=== PATIENT | male | born 1940 | race Caucasian/White ===

== ENCOUNTER 2019-01-01 19:51 | Emergency (ER) | payer MEDICARE, OTHER, SELFPAY ==
[2019-01-01 19:55] VITALS: BP 126/70; PULSE 91; RESP 18; TEMP 36.3; O2SAT 96; BMI 23.5
--- NOTE | 2019-01-01 20:04 | DI.RAD.S_ITS ---
PROCEDURE: XR RIBS RT MIN 3V W CXR 1V INDICATIONS: Rib pain after fall. TECHNIQUE: 2 views of the right ribs were acquired, along with a single view chest. COMPARISON: None. FINDINGS: Surgical changes and devices: None. Bones and chest wall: Nondisplaced acute lateral right 10th rib fracture. No other fractures or dislocations. Degenerative changes of the right acromioclavicular and glenohumeral joints. No suspicious bony lesions. Overlying soft tissues appear unremarkable. Lungs and pleura: No pleural effusions or pneumothorax. Lungs appear clear. Mediastinum: Mediastinal contours appear normal. Heart size is normal. IMPRESSION: 1. Nondisplaced, acute right lateral 10th rib fracture. 2. No acute cardiopulmonary disease. Dictated by: Will Zamora M.D. on 01/01/2019 at 20:32 Approved by: Will Zamora M.D. on 01/01/2019 at 20:35
--- NOTE | 2019-01-01 20:48 | ED.BACK ---
HPI - Back Pain/Injury General Chief Complaint: Back Pain/Injury Stated Complaint: Right side rib pain, fall in garden on block Time Seen by Provider: 01/01/19 20:48 Source: patient Mode of arrival: ambulatory Limitations: no limitations History of Present Illness HPI Narrative: Patient is a 78-year-old male. Has Parkinson's disease. Was in a crouched position working in his garden when he lost his balance and fell over and hit his right side on an object on the ground. Has had pain worsening since then. No problems breathing. No other injuries were reported from the event. Has not tried anything for that prior to arrival Related Data Previous Rx's Medication Instructions Recorded hydrocodone-acetaminophen [Jbphh] 1 tab PO Q4-6H PRN #7 tab 01/01/19 Review of Systems Constitutional Denies fever(s) and Denies headache(s) ENT Ears, Nose, Mouth, and Throat: Denies vertigo and Denies headache(s) Cardiovascular Reports chest pain (Right-sided chest wall) and Denies dyspnea Respiratory Denies cough and Denies dyspnea Gastrointestinal Gastrointestinal: Denies nausea and Denies vomiting Musculoskeletal Denies myalgias and Denies arthralgias Integumentary/Breasts Denies rash Neurologic Denies vertigo and Denies headache(s) Comments: Baseline neurologic status Hematologic/Lymphatic Denies easy bleeding and Denies easy bruising [facility] Medical History Parkinsons disease (Acute) Social History lives independently: Yes Social History lives independently: Yes Exam Initial Vital Signs Initial Vital Signs: Vital Signs Temperature 97.3 F L 01/01/19 19:55 Pulse Rate 91 H 01/01/19 19:55 Respiratory Rate 18 01/01/19 19:55 Blood Pressure 126/70 01/01/19 19:55 Pulse Oximetry 96 01/01/19 19:55 Const General: cooperative, comfortable, well developed, well groomed and No acute distress Orientation: alert and awake Chest Chest: No crepitus and tenderness (Right lower anterior /lateral chest chest) Resp Effort & Inspection: normal respiratory effort Cardio Rate: regular rate Rhythm: regular rhythm Skin Lesions: no lesions Rashes: no rashes Extrem General: capillary refill normal and No edema Psych Appearance: grossly normal and well kempt Course Orders Ordered: ED Orders 01/01/19 20:04 XR ribs RT min 3V w CXR1V Stat Discontinued Medications Hydrocodone Bitart/Acetaminophen (Vicodin Prepack) 1 bottle MISC SEEINSTR ONE Stop: 01/01/19 21:07 Last Admin: 01/01/19 21:13 Dose: 1 bottle Vital Signs - 8 hr 01/01/19 19:55 01/01/19 21:17 Temperature 97.3 F L Pulse Rate 91 H 73 Respiratory Rate 18 18 Blood Pressure 126/70 137/78 Pulse Oximetry 96 95 MDM - Back Pain/Injury Imaging Data Rib x-ray: Radiologist's impression: [address] [address] XRay Report Signed Patient: Torsten Albrecht LMR#: [id number] : 1940Acct:[id number] Age/Sex: 78 / MDate of Service: 01/01/19 Loc: ED Accession Number: [id number] Procedure: XR ribs RT min 3V w CXR1V Ordering Provider: Leo Zamarripa D.O. PROCEDURE: XR RIBS RT MIN 3V W CXR 1V INDICATIONS: Rib pain after fall. TECHNIQUE: 2 views of the right ribs were acquired, along with a single view chest. COMPARISON: None. FINDINGS: Surgical changes and devices: None. Bones and chest wall: Nondisplaced acute lateral right 10th rib fracture. No other fractures or dislocations. Degenerative changes of the right acromioclavicular and glenohumeral joints. No suspicious bony lesions. Overlying soft tissues appear unremarkable. Lungs and pleura: No pleural effusions or pneumothorax. Lungs appear clear. Mediastinum: Mediastinal contours appear normal. Heart size is normal. IMPRESSION: 1. Nondisplaced, acute right lateral 10th rib fracture. 2. No acute cardiopulmonary disease. Dictated by: Will Zamora M.D. on 01/01/2019 at 20:32 Approved by: Will Zamora M.D. on 01/01/2019 at 20:35 MDM Narrative Medical decision making narrative: Baseline neurologic status per the patient with regard to his Parkinson's disease. He is tender to palpation over his right-sided ribs consistent with what appears to be a rib fracture on the x-rays. He is not in any respiratory distress. There is no underlying lung pathology. Initially declined any need for pain medication. We did discuss the importance of him controlling his pains that he can take big deep breaths to avoid things like pneumonia. He was given return precautions and follow-up instructions. Patient expressed understanding and agreement of plan Discharge Plan Departure Patient Disposition: Home Clinical Impression: Rib fracture Qualifiers: Encounter type: initial encounter Rib fracture type: single rib Fracture type: closed Laterality: right Qualified Code(s): S22.31XA - Fracture of one rib, right side, initial encounter for closed fracture Discharge Date/Time: 01/01/19 21:17 Interventions: ED Discharge Assessment Last Done: 01/01/19 21:17 Instructions: DI for Rib Fracture Activity Restrictions/Additional Instructions: Contact your primary care doctor for a follow-up. Return to the emergency department for any fevers, worsening pain, productive cough or any other concerning symptoms. Prescriptions: New hydrocodone-acetaminophen [Jbphh] 5-325 mg tablet 1 tab PO Q4-6H PRN (Reason: pain) Qty: 7 RF: 0
--- NOTE | 2019-01-01 20:49 | PC.NURSE ---
Pt fell on the edge of the garden on R mid back. Pt denies SOB. c/o increasing pain with movement and from muscle tremors due to the Parkinson's disease and getting in and out of bed. Pt has light redness on R side mid back. Strength on upper extremity no changes.
[2019-01-01] MEDS: HYDROCODONE/ACET 5/325 PREPACK 1 BOTTLE MISC (21:13)
[2019-01-01 21:17] VITALS: BP 137/78; PULSE 73; RESP 18; O2SAT 95
--- NOTE | 2019-01-01 21:18 | PC.NURSE ---
pt denies allergy to hydrocodone/acetaminophen.
== END 2019-01-01 21:17 | disposition home or self-care (01) ==
PROVIDERS: Emergency Provider Emergency Medicine
DX: S22.31XA Fracture of one rib, right side, initial encounter for closed fracture (principal); W19.XXXA Unspecified fall, initial encounter
CPT/HCPCS: 71101; 99282; 99283

== ENCOUNTER 2022-04-22 19:46 | Emergency (ER) | payer OTHER, SELFPAY ==
[2022-04-22 19:57] VITALS: BP 118/57; PULSE 82; RESP 18; TEMP 36.6; O2SAT 97
--- NOTE | 2022-04-22 20:10 | DI.CT.S_ITS ---
PROCEDURE: CT CERVICAL SPINE WO CON INDICATIONS: Trauma TECHNIQUE: Noncontrast 3 mm thick sections acquired from the skull base to the T4 level. Sagittal and coronal reformats were then constructed. For radiation dose reduction, the following was used: automated exposure control, adjustment of mA and/or kV according to patient size. COMPARISON: None. FINDINGS: Image quality: Excellent. Bones: No fractures or subluxation. There is multilevel degenerative disc disease, facet joint arthropathy, and uncovertebral joint arthropathy. Visualized superior ribs are intact. Soft tissues: Prevertebral soft tissues are normal in thickness. No paravertebral hematomas. No apical pneumothoraces. IMPRESSION: 1. No acute fracture or subluxation. Dictated by: Brenden Bruce M.D. on 04/22/2022 at 20:33 Approved by: Brenden Bruce M.D. on 04/22/2022 at 20:34
--- NOTE | 2022-04-22 20:10 | DI.CT.S_ITS ---
PROCEDURE: CT HEAD/BRAIN WO CON INDICATIONS: Trauma TECHNIQUE: Noncontrast 5 mm thick angled axial sections acquired from the foramen magnum to the vertex, with coronal and sagittal reformats. For radiation dose reduction, the following was used: automated exposure control, adjustment of mA and/or kV according to patient size. COMPARISON: None. FINDINGS: Image quality: Excellent. CSF spaces: Basal cisterns are patent. No extra-axial fluid collections. There is mild cerebral volume loss, with resultant ventricular and sulcal prominence. Brain: No intracranial hemorrhage, mass, or mass effect. There are subcortical, periventricular and deep white matter hypodensities consistent with mild chronic small vessel ischemic changes. The mccracken-white matter junction appears preserved. There is intracranial internal carotid artery atherosclerosis. Skull and face: Calvarium and visualized facial bones appear intact, without suspicious lesions. Sinuses: Visualized sinuses and mastoids are clear. IMPRESSION: 1. No acute intracranial abnormality. 2. Mild chronic white matter small vessel ischemic changes and cerebral volume loss. Dictated by: Brenden Bruce M.D. on 04/22/2022 at 20:32 Approved by: Brenden Bruce M.D. on 04/22/2022 at 20:32
--- NOTE | 2022-04-22 20:10 | DI.CT.S_ITS ---
P cyst ROCEDURE: CT PEL WO CON INDICATIONS: Fall/trauma/pain left hip TECHNIQUE: Noncontrast 3 mm axial sections acquired through the bony pelvis, with coronal and sagittal reformatting. COMPARISON: None. FINDINGS: Image quality: There is metallic streak artifact from patient's surgical hardware. Bones: No fracture or dislocation. There are postsurgical changes partially visualized within the lower lumbar spine with posterior fixation rods and an intervertebral spacer at L4-5. There is moderate to severe degenerative disc disease at L5-S1. Soft tissues: No hip joint effusion. There is subcutaneous fat stranding and fluid lateral to the left hip consistent a suspected subcutaneous hematoma. The visualized musculature appears grossly preserved. No intraperitoneal free fluid within the visualized pelvis. Visualized bowel loops are normal in caliber. IMPRESSION: 1. No fracture or dislocation. 2. Subcutaneous fat stranding and fluid superficial to the left hip laterally likely representing a subcutaneous hematoma from a soft tissue contusion. Dictated by: Brenden Bruce M.D. on 04/22/2022 at 20:34 Approved by: Brenden Bruce M.D. on 04/22/2022 at 20:37
--- NOTE | 2022-04-22 20:11 | ED.FALL ---
HPI - Fall General Chief Complaint: Trauma Stated Complaint: FALL HIT HEAD LACERATIONS LEFT HIP PAIN Time Seen by Provider: 04/22/22 20:10 Source: patient Mode of arrival: Wheelchair History of Present Illness HPI Narrative: Modified trauma called at 8:09 p.m.. Patient here with son. Patient is on blood thinner for past history of a stroke. Patient states he was in his garage and slipped on a piece of cardboard and fell and hit his head. No loss of consciousness. Complains of injury to the scalp and left hip pain. Denies any neck or spine pain. No back pain. No other complaints. Patient is awake alert oriented x4. Patient at baseline per son. No altered mental status. No vision changes no nausea or vomiting. No headache. Patient does have history of Parkinson's. No residual weakness from TIA. Related Data Previous Rx's Medication Instructions Recorded hydrocodone 5 mg-acetaminophen 325 1 tab PO Q4-6H PRN pain #7 tabs 01/01/19 mg tablet (Balsam) Review of Systems Review of Systems Narrative: GENERAL: Denies chills, fatigue, malaise, fever, sweats. HEENT: Denies sinus pain, ear pain, sore throat RESPIRATORY: Denies dyspnea, cough CARDIOVASCULAR: Denies chest pain, palpitations GASTROINTESTINAL: Denies nausea, vomiting, abdominal pain : Denies dysuria, frequency, hematuria MUSCULOSKELETAL: Positive muscle or bony pain SKIN: Denies rash, skin lesions, positive skin injury NEUROLOGIC: Denies weakness, numbness ROS Unobtainable: All systems reviewed & are unremarkable except as noted in HPI and below Patient History Medical History (Updated 04/22/22 @ 21:47 by Dariel Willson MD) Parkinsons disease Social History lives independently: Yes Smoking Status: Never smoker Smoking Status: Never smoker Substance Use Type: does not use Exam Narrative Exam Narrative: GENERAL: in no distress, not toxic not dyspneic HEAD: Normocephalic. Two small skin avulsions on the left frontal scalp. The largest is 5 mm. Based visualized no foreign body no bone or muscle injury seen. The same findings on a lateral skin avulsion to this with a small flap measuring 3 mm. No crepitus or step-off. EYES: Pupils equal round No scleral icterus. ENT: Mucous membranes moist. NECK: Trachea midline. No midline tenderness or step-off of the cervical thoracic or lumbar spine. CARDIOVASCULAR: Regular rate and rhythm without murmurs RESPIRATORY: Clear to auscultation. Breath sounds equal bilaterally. No wheezes, rales, or rhonchi. GASTROINTESTINAL: Abdomen soft, non-tender EXTREMITIES: No gross deformities. Left leg not shortened or rotated. Able to flex and extend hip without pain/difficulty on the left. Pants removed. There is a large hematoma overlying the left hip. Skin is intact otherwise. BACK: No flank tenderness. NEURO: AOx4. Clear speech no facial droop light touch intact bilateral face hands and face. Strong equal qc lab technician. SKIN: Warm and dry PSYCH: Not anxious, is cooperative Initial Vital Signs Initial Vital Signs: Vital Signs Temperature 98 F 04/22/22 19:57 Pulse Rate 82 04/22/22 19:57 Respiratory Rate 18 04/22/22 19:57 Blood Pressure 118/57 L 04/22/22 19:57 Pulse Oximetry 97 04/22/22 19:57 Oxygen Delivery Method 04/22/22 19:57 Course Course Course Narrative: No new issues during course of stay Orders Ordered: ED Orders 04/22/22 20:10 CT cervical spine wo con Stat CT head/brain wo con Stat CT pelvis wo con Stat Discontinued Medications Diphtheria/Tetanus/Acell Pertussis (Tet,Diph,Pertuss(Acell),Vac/Pf 0.5 Ml Syringe) 0.5 ml IM .ONCE ONE Stop: 04/22/22 20:15 Last Admin: 04/22/22 20:40 Dose: 0.5 ml Documented By: NICHO Reevaluation(s) Reevaluation #1: Reviewed results with patient and son. Return precautions reviewed with him. They understand wound care instructions. Time: 21:45 Vital Signs Vital signs: Vital Signs - 8 hr 04/22/22 19:57 04/22/22 22:01 Temperature 98 F Pulse Rate 82 67 Respiratory Rate 18 20 Blood Pressure 118/57 L 172/87 H Pulse Oximetry 97 95 Oxygen Delivery Method Room Air Room Air MDM - Fall Differential Diagnosis Differential diagnosis: Likely other (Skull fracture intracranial bleed skin injury hip fracture dislocation contusion) Imaging Data CT scan - head: Radiologist's Impression: [address] [address] [address] Scan Report Signed Patient: Torsten Albrecht MR#: [id number] : 1940 Acct:[id number] Age/Sex: 81 / M Date of Service: 04/22/22 Loc: ED Accession Number: [id number] ?? Procedure: CT head/brain wo con Ordering Provider: Dariel Willson MD PROCEDURE:? CT HEAD/BRAIN WO CON ? INDICATIONS:? Trauma ? TECHNIQUE:? Noncontrast 5 mm thick angled axial sections acquired from the foramen magnum to the vertex, with coronal and sagittal reformats.? For radiation dose reduction, the following was used:? automated exposure control, adjustment of mA and/or kV according to patient size.? ? COMPARISON:? None. ? FINDINGS:? Image quality:? Excellent.? ? CSF spaces:? Basal cisterns are patent.? No extra-axial fluid collections.? There is mild cerebral volume loss, with resultant ventricular and sulcal prominence.? ? Brain:? No intracranial hemorrhage, mass, or mass effect.? There are subcortical, periventricular and deep white matter hypodensities consistent with mild chronic small vessel ischemic changes.? The mccracken-white matter junction appears preserved.? There is intracranial internal carotid artery atherosclerosis.? ? Skull and face:? Calvarium and visualized facial bones appear intact, without suspicious lesions.? ? Sinuses:? Visualized sinuses and mastoids are clear.? ? IMPRESSION:? ? 1. No acute intracranial abnormality. ? 2. Mild chronic white matter small vessel ischemic changes and cerebral volume loss. ? ? Dictated by: Brenden Bruce M.D. on 04/22/2022 at 20:32 ? ? Approved by: Brenden Bruce M.D. on 04/22/2022 at 20:32 ? CT - cervical spine: Radiologist's Impression: [address] [address] [address] Scan Report Signed Patient: Torsten Albrecht MR#: [id number] : 1940 Acct:[id number] Age/Sex: 81 / M Date of Service: 04/22/22 Loc: ED Accession Number: [id number] ?? Procedure: CT cervical spine wo con Ordering Provider: Dariel Willson MD PROCEDURE:? CT CERVICAL SPINE WO CON ? INDICATIONS:? Trauma ? TECHNIQUE:? Noncontrast 3 mm thick sections acquired from the skull base to the T4 level.? Sagittal and coronal reformats were then constructed.? For radiation dose reduction, the following was used:? automated exposure control, adjustment of mA and/or kV according to patient size.? ? COMPARISON:? None. ? FINDINGS:? Image quality:? Excellent.? ? Bones:? No fractures or subluxation.? There is multilevel degenerative disc disease, facet joint arthropathy, and uncovertebral joint arthropathy.? Visualized superior ribs are intact.? ? Soft tissues:? Prevertebral soft tissues are normal in thickness.? No paravertebral hematomas.? No apical pneumothoraces.? ? ? IMPRESSION:? ? 1. No acute fracture or subluxation. ? ? ? Dictated by: Brenden Bruce M.D. on 04/22/2022 at 20:33 ? ? Approved by: Brenden Bruce M.D. on 04/22/2022 at 20:34 ? CT pelvis: Radiologist's Impression: [place] [address] CT Scan Report Signed Patient: Torsten Albrecht MR#: [id number] : 1940 Acct:[id number] Age/Sex: 81 / M Date of Service: 04/22/22 Loc: ED Accession Number: [id number] ?? Procedure: CT pelvis wo con Ordering Provider: Dariel Willson MD ROCEDURE:? CT PEL WO CON ? INDICATIONS:? Fall/trauma/pain left hip ? TECHNIQUE:? Noncontrast 3 mm axial sections acquired through the bony pelvis, with coronal and sagittal reformatting.? ? COMPARISON:? None. ? FINDINGS:? Image quality:? There is metallic streak artifact from patient's surgical hardware.? ? Bones:? No fracture or dislocation.? There are postsurgical changes partially visualized within the lower lumbar spine with posterior fixation rods and an intervertebral spacer at L4-5.? There is moderate to severe degenerative disc disease at L5-S1. ? Soft tissues:? No hip joint effusion.? There is subcutaneous fat stranding and fluid lateral to the left hip consistent a suspected subcutaneous hematoma.? The visualized musculature appears grossly preserved.? No intraperitoneal free fluid within the visualized pelvis.? Visualized bowel loops are normal in caliber. ? IMPRESSION:? ? 1. No fracture or dislocation. ? 2. Subcutaneous fat stranding and fluid superficial to the left hip laterally likely representing a subcutaneous hematoma from a soft tissue contusion. ? ? ? Dictated by: Brenden Bruce M.D. on 04/22/2022 at 20:34 ? ? Approved by: Brenden Bruce M.D. on 04/22/2022 at 20:37 ? MDM Narrative Medical decision making narrative: Appropriate for discharge home. Exam and imaging are reassuring. Patient and son agree no stitching or closure required for skin avulsion. Wound care instructions given return precautions reviewed. Patient otherwise has no other complaints. Discharge Plan Departure Patient Disposition: Home Clinical Impression: Avulsion of skin, Contusion of hip Instructions: DI for Hematoma (Bruise), DI for Trauma, DI for Closed Head Injury, Skin Wound Activity Restrictions/Additional Instructions: See family doctor next week for re-evaluation of your scalp wound. Change dressing daily with warm soap and water and apply a thin layer of topical antibiotic. May shower and get scalp wet. Be sure to air dry/pat softly to dry. Return if worse if any questions or concerns or if any redness to the wound or drainage from the wound. Do not take your blood thinner tomorrow or the following day. Use cool pack to the left hip as swelling will occur. It may cause discoloration and tracking downward towards her feet. May use Tylenol for pain. Prescriptions: No Action hydrocodone-acetaminophen [Balsam] 5-325 mg tablet 1 tab PO Q4-6H PRN (Reason: pain) Qty: 7 0RF Visit Report Forms: Patient Portal/API
[2022-04-22] MEDS: TET,DIPH,PERTUSS(ACELL),VAC/PF 0.5 ML SYRINGE IM (20:40)
[2022-04-22 22:01] VITALS: BP 172/87; PULSE 67; RESP 20; O2SAT 95
== END 2022-04-22 22:04 | disposition home or self-care (01) ==
PROVIDERS: Emergency Provider Emergency Medicine
DX: S70.02XA Contusion of left hip, initial encounter (principal); S09.90XA Unspecified injury of head, initial encounter; Z79.01 Long term (current) use of anticoagulants; Z23 Encounter for immunization
CPT/HCPCS: 70450; 72125; 72192; 90471; 99284; 90715

== ENCOUNTER 2022-06-05 01:32 | Emergency (ER) | payer OTHER, SELFPAY ==
[2022-06-05 01:42] VITALS: BP 91/53; PULSE 65; RESP 20; TEMP 36.4; O2SAT 95; BMI 22.8
--- NOTE | 2022-06-05 01:49 | DI.RAD.S_ITS ---
PROCEDURE: XR CHEST 1V INDICATIONS: chest pain TECHNIQUE: One view of the chest was acquired. COMPARISON: None. FINDINGS: Surgical changes and devices: None. Lungs and pleura: Lungs are clear. No pleural effusions or pneumothorax. Interstitial prominence is slightly increased compared to the prior study and is likely chronic. Mediastinum: Mediastinal contours appear normal. Heart size is normal. Bones and chest wall: No suspicious bony lesions. Overlying soft tissues appear unremarkable. IMPRESSION: Slight increase in interstitial markings with mild peribronchial cuffing. This may be secondary to chronic fibrotic changes versus underlying reactive airway disease. Comment: Final report is concordant with preliminary interpretation by [facility] Dictated by: José Manuel Rasmussen M.D. on 06/05/2022 at 8:08 Approved by: José Manuel Rasmussen M.D. on 06/05/2022 at 8:09
[2022-06-05 02:08] LABS: Add Manual Diff / Slide Review NO; Basophils Absolute Auto 0 /uL (0-100); Basophils Percent Auto 0.2 % (0-2); Eosinophils Absolute Auto 0 /uL (0-450); Eosinophils Percent Auto 0.7 % (2-4); Hematocrit 35.1 % (41-53); Hemoglobin 11.8 g/dL (13.5-17.5); Lymphocytes Absolute Auto 600 /uL (1100-4500); Lymphocytes Percent Auto 11.8 % (25-40); Mean Corpuscular HGB Conc 33.6 % (30-36); Mean Corpuscular Hemoglobin 31.6 PG (26-34); Mean Corpuscular Volume 94.2 fL (80-100); Monocytes Absolute Auto 300 /uL (0-900); Monocytes Percent Auto 5.8 % (3-14); Neutrophils Absolute Auto 4300 /uL (1500-7000); Neutrophils Percent Auto 81.5 % (50-75); Platelet Count 140 X10^3/uL (150-400); Red Blood Cell Count 3.73 X10^6/uL (4.5-5.9); Red Cell Distribution Width 13.1 % (11.6-14.8); White Blood Cell Count 5.2 X10^3/uL (4.5-11.0)
[2022-06-05 02:13] LABS: COVID19 -Nasal RAPID Negative (Negative)
[2022-06-05 02:35] LABS: Alanine Aminotransferase 6 IU/L (<50); Albumin 3.3 g/dL (3.5-5.0); Albumin Globulin Ratio 1.4 (1.0-2.8); Alkaline Phosphatase 77 U/L (38-126); Aspartate Aminotransferase 26 IU/L (17-59); BUN Creatinine Ratio 21.1 (6-22); Blood Urea Nitrogen 27 mg/dL (9-20); Calcium 7.7 mg/dL (8.4-10.2); Carbon Dioxide 29 mmol/L (22-32); Chloride 99 mmol/L (98-107); Creatine Kinase 194 U/L (55-170); Estimated Glomerular Filt Rate 56 mL/min (>60); Globulin 2.4 g/dL (1.7-4.1); Glucose 128 mg/dL (80-110); HEMOLYSIS < 15 (0-50); Lipase 31 U/L (23-300); Magnesium 1.9 mg/dL (1.6-2.3); Potassium 4.1 mmol/L (3.4-5.1); Sodium 134 mmol/L (137-145); Total Protein 5.7 g/dL (6.3-8.2)
--- NOTE | 2022-06-05 02:36 | ED_ITS ---
HPI - Syncope General Chief Complaint: Syncope Stated Complaint: GLF hit head Time Seen by Provider: 06/05/22 02:10 Source: patient and EMS Mode of arrival: EMS History of Present Illness HPI narrative: Patient 81-year-old male history of CVA, Parkinson's presenting today after 2 falls. Son states that both started having some gastroenteritis like symptoms patient says that he had 1 episode of diarrhea. He is fell earlier today. He i s told way weak and tired in his legs give out. 1st time he fell there was no injury son got him up and put him to bed. However he did not want getting up and going to the bathroom by himself so this morning he helped him get up and go to the restroom when he fell in the bathroom hitting his head. There was brief loss of consciousness, he does take Plavix. No nausea vomiting. His parkinsonian like movements. He really has no abdominal pain. He previously has had bowel rotation and ischemic got with a colectomy. He is noted to be slightly hypotensive he states that his blood pressure varies quite a bit in 1 day. He says sometimes it is as high as 200 and has previously been as low as 60 but is not uncommon for to be under 100. He denies any other injuries from his fall.. He now is complaining of some chest burning. No prior history of coronary artery disease. Related Data Previous Rx's Medication Instructions Recorded hydrocodone 5 mg-acetaminophen 325 1 tab PO Q4-6H PRN pain #7 tabs 01/01/ mg tablet (Gladys) Allergies Allergy/AdvReac Type Severity Reaction Status Date / Time haloperidol [From Haldol] Allergy Verified 06/05/22 01:48 Review of Systems Review of Systems Narrative: GENERAL: Denies chills, fatigue, malaise, fever, sweats, travel HEENT: Denies sinus pain, ear pain, sore throat, difficulty swallowing, neck pain RESPIRATORY: Denies dyspnea, cough, wheezing, hemoptysis, sputum. CARDIOVASCULAR: Denies chest pain, palpitations, orthopnea, edema GASTROINTESTINAL: Denies nausea, vomiting, abdominal pain, diarrhea, constipation, melena. : Denies dysuria, frequency, incontinence, hematuria, urinary retention, flank pain. MUSCULOSKELETAL: Denies weakness, joint pain, or bony pain SKIN: No rash, no erythema, no pruritus NEUROLOGIC: See HPI PSYCHIATRIC: No concerning psychosocial issues. 12 point review of systems is negative except for those stated above and HPI Patient History Medical History (Updated 06/05/22 @ 05:05 by Claudia Willett DO) CVA (cerebral vascular accident) Parkinsons disease Social History lives independently: Yes Smoking Status: Never smoker Smoking Status: Never smoker Substance Use Type: does not use Exam Initial Vital Signs Initial Vital Signs: Vital Signs Temperature 97.6 F 06/05/22 01:42 Pulse Rate 65 06/05/22 01:42 Respiratory Rate 20 06/05/22 01:42 Blood Pressure 91/53 L 06/05/22 01:42 Pulse Oximetry 95 06/05/22 01:42 Oxygen Delivery Method 06/05/22 01:42 GENERAL: Alert pleasant 81-year-old male with parkinsonian like movement HEENT: Head mild swelling right postauricular area is no laceration no depression,EOMI, pupils reactive, face symmetric, moist mucous membranes CARDIOVASCULAR: Regular rate and rhythm without murmurs, rubs or gallops. RESPIRATORY: Breath sounds equal bilaterally, no wheezes rales or rhonchi. ABDOMEN: Soft, nontender. Normoactive bowel sounds all 4 quadrants. No guarding or rebound. EXTREMITIES: Normal range of motion, no clubbing or edema. Neurovascularly intact NEUROLOGICAL: Alert and oriented x4. Moving all extremities SKIN: Warm, dry, no laceration, no petechiae, no rashes or lesions. Course Orders Ordered: ED Orders 06/05/22 01:48 COVID19 -Nasal RAPID/Pre-Proc Stat Complete Blood Count AUTO DIFF Stat Comprehensive Metabolic Panel Stat Lipase Stat Magnesium Stat Troponin & CK Cardiac Panel Stat 06/05/22 01:49 XR chest 1V Stat EKG-12 Lead Stat 06/05/22 02:41 CT head/brain wo con Stat 06/05/22 04:00 Urinalysis and Microscopic Stat Vital Signs Vital signs: Vital Signs - 8 hr 06/05/22 01:42 06/05/22 03:04 Temperature 97.6 F Pulse Rate 65 66 Respiratory Rate 20 19 Blood Pressure 91/53 L 111/55 L Pulse Oximetry 95 95 Oxygen Delivery Method Room Air Room Air MDM - Syncope Lab Data Result diagrams: 06/05/22 01:48 06/05/22 01:48 Labs: Lab Results 06/05/22 06/05/22 06/05/22 Range/Units 01:48 01:48 01:48 WBC 5.2 (4.5-11.0) X10^3/uL RBC 3.73 L (4.5-5.9) X10^6/uL Hgb 11.8 L (13.5-17.5) g/dL Hct 35.1 L (41-53) % MCV 94.2 (80-100) fL MCH 31.6 (26-34) PG MCHC 33.6 (30-36) % RDW 13.1 (11.6-14.8) % Plt Count 140 L (150-400) X10^3/uL Neut % (Auto) 81.5 H (50-75) % Lymph % (Auto) 11.8 L (25-40) % Millard % (Auto) 5.8 (3-14) % Eos % (Auto) 0.7 L (2-4) % Baso % (Auto) 0.2 (0-2) % Neut # (Auto) 4300 (6413-2625) /uL Lymph # (Auto) 600 L (5697-1686) /uL Millard # (Auto) 300 (0-900) /uL Eos # (Auto) 0 (0-450) /uL Baso # (Auto) 0 (0-100) /uL Sodium 134 L (137-145) mmol/L Potassium 4.1 (3.4-5.1) mmol/L Chloride 99 (98-107) mmol/L Carbon Dioxide 29 (22-32) mmol/L BUN 27 H (9-20) mg/dL Creatinine 1.28 H (0.66-1.25) mg/dL Estimated GFR 56 L (>60) mL/min BUN/Creatinine Ratio 21.1 (6-22) Glucose 128 H (80-110) mg/dL Calcium 7.7 L (8.4-10.2) mg/dL Magnesium 1.9 (1.6-2.3) mg/dL Total Bilirubin 1.0 (0.2-1.3) mg/dL AST 26 (17-59) IU/L ALT 6 (<50) IU/L Alkaline Phosphatase 77 (38-126) U/L Total Creatine Kinase 194 H (55-170) U/L CK-MB (CK-2) 4.02 H (<2.37) ng/mL CK-MB (CK-2) Rel Index 2.1 (1.5-5.0) % Troponin I < 0.012 (0.01-0.034) ng/mL Total Protein 5.7 L (6.3-8.2) g/dL Albumin 3.3 L (3.5-5.0) g/dL Globulin 2.4 (1.7-4.1) g/dL Albumin/Globulin Ratio 1.4 (1.0-2.8) Lipase 31 (23-300) U/L Urine Color Urine Appearance Urine pH (4.5-8.0) Ur Specific [place] (1.000-1.035) Urine Protein (Negative) Urine Glucose (UA) (Negative) g/dL Urine Ketones (NEGATIVE) Urine Occult Blood (Negative) Urine Nitrate (Negative) Urine Bilirubin (NEGATIVE) Urine Urobilinogen (0.2) E.U./dL Ur Leukocyte Esterase (NEGATIVE) Urine RBC (0-5/HPF) Urine WBC (0-5/HPF) Ur Squamous Epith Cells (0-5/HPF) Amorphous Sediment Urine Bacteria (None) Hyaline Casts (None) Urine Mucus (Negative) Ur Culture Indicated? SARS-CoV-2 (PCR) Negative (Negative) 06/05/22 Range/Units 04:00 WBC (4.5-11.0) X10^3/uL RBC (4.5-5.9) X10^6/uL Hgb (13.5-17.5) g/dL Hct (41-53) % MCV (80-100) fL MCH (26-34) PG MCHC (30-36) % RDW (11.6-14.8) % Plt Count (150-400) X10^3/uL Neut % (Auto) (50-75) % Lymph % (Auto) (25-40) % Millard % (Auto) (3-14) % Eos % (Auto) (2-4) % Baso % (Auto) (0-2) % Neut # (Auto) (2331-3344) /uL Lymph # (Auto) (0811-9892) /uL Millard # (Auto) (0-900) /uL Eos # (Auto) (0-450) /uL Baso # (Auto) (0-100) /uL Sodium (137-145) mmol/L Potassium (3.4-5.1) mmol/L Chloride (98-107) mmol/L Carbon Dioxide (22-32) mmol/L BUN (9-20) mg/dL Creatinine (0.66-1.25) mg/dL Estimated GFR (>60) mL/min BUN/Creatinine Ratio (6-22) Glucose (80-110) mg/dL Calcium (8.4-10.2) mg/dL Magnesium (1.6-2.3) mg/dL Total Bilirubin (0.2-1.3) mg/dL AST (17-59) IU/L ALT (<50) IU/L Alkaline Phosphatase (38-126) U/L Total Creatine Kinase (55-170) U/L CK-MB (CK-2) (<2.37) ng/mL CK-MB (CK-2) Rel Index (1.5-5.0) % Troponin I (0.01-0.034) ng/mL Total Protein (6.3-8.2) g/dL Albumin (3.5-5.0) g/dL Globulin (1.7-4.1) g/dL Albumin/Globulin Ratio (1.0-2.8) Lipase (23-300) U/L Urine Color Yellow Urine Appearance Clear Urine pH 5.0 (4.5-8.0) Ur Specific [place] 1.020 (1.000-1.035) Urine Protein Trace H (Negative) Urine Glucose (UA) Negative (Negative) g/dL Urine Ketones Trace H (NEGATIVE) Urine Occult Blood Negative (Negative) Urine Nitrate Negative (Negative) Urine Bilirubin Negative (NEGATIVE) Urine Urobilinogen 0.2 (0.2) E.U./dL Ur Leukocyte Esterase Trace H (NEGATIVE) Urine RBC 0-1/hpf (0-5/HPF) Urine WBC 0-1/hpf (0-5/HPF) Ur Squamous Epith Cells 0-1 /hpf (0-5/HPF) Amorphous Sediment 1+ Urine Bacteria Few (2-10) H (None) Hyaline Casts 10-30/lpf (None) Urine Mucus 2+ H (Negative) Ur Culture Indicated? Specimen cultured SARS-CoV-2 (PCR) (Negative) Point of Care Testing Glucose POC [address] scan - head: Radiologist's Impression: CT Scan Report Signed Patient: Torsten Albrecht MR#: [id number] : 1940 Acct:[id number] Age/Sex: 81 / M Date of Service: 06/05/22 Loc: ED Accession Number: [id number] ?? Procedure: CT head/brain wo con Ordering Provider: Claudia Willett D.O. PROCEDURE:? CT HEAD/BRAIN WO CON ? INDICATIONS:? fall (parkinsons) ? TECHNIQUE:? Noncontrast 4.5 mm thick angled axial sections acquired from the foramen magnum to the vertex, with coronal and sagittal reformats.? For radiation dose reduction, the following was used:? automated exposure control, adjustment of mA and/or kV according to patient size.? ? COMPARISON:? [facility], CT, CT HEAD/BRAIN WO CON, 04/22/2022, 20:19. ? FINDINGS:? Image quality:? Excellent.? ? CSF spaces:? Basal cisterns are patent.? No extra-axial fluid collections.? The ventricles are symmetric in size and shape.? ? Brain:? No intracranial bleeds or masses.? There is cerebral volume loss for age, with resultant ventricular and sulcal prominence.? There are periventricular and deep white matter chronic small vessel ischemic changes.? There is intracranial internal carotid artery atherosclerosis.? ? Skull and face:? Calvarium and visualized facial bones appear intact, without suspicious lesions.? ? Sinuses:? Visualized sinuses and mastoids are clear.? ? IMPRESSION:? ? ? 1. No acute intracranial abnormalities. ? 2. Cerebral volume loss and chronic microvascular ischemic changes. ? ? No significant discrepancy with the [facility] preliminary report. ? ? ? Dictated by: Shelly Arias M.D. on 06/05/2022 at 8:04 ? ? Approved by: Shelly Arias M.D. on 06/05/2022 at 8:05 ? Chest x-ray: Radiologist's Impression: Torsten Albrecht MR#: [id number] : 1940 Acct:[id number] Age/Sex: 81 / M Date of Service: 06/05/22 Loc: ED Accession Number: [id number] ?? Procedure: XR chest 1V Ordering Provider: Claudia Willett D.O. PROCEDURE:? XR CHEST 1V ? INDICATIONS:? chest pain ? TECHNIQUE:? One view of the chest was acquired.? ? COMPARISON:? None. ? FINDINGS:? ? Surgical changes and devices:? None.? ? Lungs and pleura:? Lungs are clear.? No pleural effusions or pneumothorax.? Interstitial prominence is slightly increased compared to the prior study and is likely chronic.? ? Mediastinum:? Mediastinal contours appear normal.? Heart size is normal.? ? Bones and chest wall:? No suspicious bony lesions.? Overlying soft tissues appear unremarkable.? ? IMPRESSION:? Slight increase in interstitial markings with mild peribronchial cuffing.? This may be secondary to chronic fibrotic changes versus underlying reactive airway disease. ? Comment:? Final report is concordant with preliminary interpretation by [facility] ? ? Dictated by: José Manuel Rasmussen M.D. on 06/05/2022 at 8:08 ECG Data Interpretation: EKG 1. Sinus rhythm rate 64 AR interval 176 year 6 QTC 420 artifact noted no obvious ST changes EKG 2. Significant artifact sinus MDM Narrative Medical decision making narrative: Patient has quite variable blood pressure did respond well to fluids. It is likely that he fell due to some hypotension. However both patient and son state that as normal. He has only had 1 episode of diarrhea today no significant vomiting. Creatinine is mildly high at 1.2 unknown what baseline is. At this time post patient's son feel comfortable going home Discharge Plan Departure Patient Disposition: Home Clinical Impression: Closed head injury Instructions: Closed Head Injury Activity Restrictions/Additional Instructions: *You have been diagnosed with closed head injury fall *What to do: Use walker. Careful not to fall. Increase fluids such as Gatorade water juice *Continue to take medications as directed *Follow up with your primary care provider in 2-3 days or call [phone] *Return to ER if you should have increasing falls weakness numbness tingling or any new, worsening or concerning symptoms Prescriptions: No Action hydrocodone-acetaminophen [Gladys] 5-325 mg tablet 1 tab PO Q4-6H PRN (Reason: pain) Qty: 7 0RF Visit Report Forms: Patient Portal/API
--- NOTE | 2022-06-05 02:41 | DI.CT.S_ITS ---
PROCEDURE: CT HEAD/BRAIN WO CON INDICATIONS: fall (parkinsons) TECHNIQUE: Noncontrast 4.5 mm thick angled axial sections acquired from the foramen magnum to the vertex, with coronal and sagittal reformats. For radiation dose reduction, the following was used: automated exposure control, adjustment of mA and/or kV according to patient size. COMPARISON: [facility], CT, CT HEAD/BRAIN WO CON, 04/22/2022, 20:19. FINDINGS: Image quality: Excellent. CSF spaces: Basal cisterns are patent. No extra-axial fluid collections. The ventricles are symmetric in size and shape. Brain: No intracranial bleeds or masses. There is cerebral volume loss for age, with resultant ventricular and sulcal prominence. There are periventricular and deep white matter chronic small vessel ischemic changes. There is intracranial internal carotid artery atherosclerosis. Skull and face: Calvarium and visualized facial bones appear intact, without suspicious lesions. Sinuses: Visualized sinuses and mastoids are clear. IMPRESSION: 1. No acute intracranial abnormalities. 2. Cerebral volume loss and chronic microvascular ischemic changes. No significant discrepancy with the [facility] preliminary report. Dictated by: Shelly Arias M.D. on 06/05/2022 at 8:04 Approved by: Shelly Arias M.D. on 06/05/2022 at 8:05
[2022-06-05 02:47] LABS: Troponin I < 0.012 ng/mL (0.01-0.034)
[2022-06-05 02:50] LABS: CKMB % Relative Index 2.1 % (1.5-5.0); Creatine Kinase MB 4.02 ng/mL (<2.37)
[2022-06-05 03:04] VITALS: BP 111/55; PULSE 66; RESP 19; O2SAT 95
[2022-06-05 03:30] VITALS: BP 123/59; PULSE 62; RESP 20; O2SAT 96
[2022-06-05 04:08] LABS: Appearance Urine UA CLEAR; Bilirubin Urine UA NEGATIVE (NEGATIVE); Color Urine UA YELLOW; Glucose Urine UA NEGATIVE (Negative); Ketones Urine UA TRACE (NEGATIVE); Leukocyte Esterase Urine UA TRACE (NEGATIVE); Nitrite Urine UA NEGATIVE (Negative); Occult Blood Urine UA NEGATIVE (Negative); Protein Urine UA TRACE (Negative); Urobilinogen Urine UA 0.2 E.U./dL (0.2)
[2022-06-05 04:19] LABS: Bacteria Urine Few (2-10); Hyaline Casts Urine 10-30/LPF; Mucus Urine 2+ (Negative); RBC Urine 0-1/HPF (0-5/HPF); Squamous Epithelial Cell Urine 0-1 /HPF (0-5/HPF); WBC Urine 0-1/HPF (0-5/HPF)
[2022-06-05 04:20] LABS: Amorphous Sediment Urine 1+; Culture Indicated Urine Specimen Cultured
[2022-06-05 05:02] VITALS: BP 165/79; PULSE 62; RESP 19; O2SAT 96
== END 2022-06-05 05:24 | disposition home or self-care (01) ==
PROVIDERS: Emergency Provider Emergency Medicine
DX: S09.90XA Unspecified injury of head, initial encounter (principal); R29.6 Repeated falls; G20 Parkinson's disease; R19.7 Diarrhea, unspecified; R07.9 Chest pain, unspecified; Z20.822 Contact with and (suspected) exposure to COVID-19
CPT/HCPCS: 36415; 70450; 71045; 80053; 81001; 82550; 82553; 83690; 83735; 84484; 85025; 87086; 87635; 93005; 93010; 99284; C9803

== ENCOUNTER → 2022-12-31 08:09 | Outpatient (CLI) | payer OTHER, SELFPAY ==
--- NOTE | 2022-12-31 08:14 | DI.US.S_ITS ---
PROCEDURE: US ABDOMEN LIMITED INDICATIONS: RIGHT UPPER QUADRANT PAIN TECHNIQUE: Real-time focused scanning was performed of the abdomen, with image documentation. COMPARISON: None. FINDINGS: The liver is normal in size and demonstrates no focal lesions. The main portal vein demonstrates normal size and demonstrates normal appearing, hepatopetal flow. No findings of gallstones or sludge are seen. The gallbladder wall is not thickened, measuring 3 mm or less. Apparent gallbladder wall polyp can be seen anteriorly measuring nearly 4 mm. No specific pericholecystic fluid is seen. The sonographic López sign is negative. The fundus of the gallbladder is limited by gas. There is no biliary dilatation, the common bile duct measures 3 mm. The pancreatic duct is mildly dilated at 3.5 mm. The tail of the pancreas is not well seen. No free fluid is seen. Overall scan quality is limited by bowel gas. IMPRESSION: The pancreatic duct is minimally dilated at 3.5 mm. If clinically appropriate, a dedicated follow-up CT could be considered for further evaluation. The fundus of the gallbladder is limited by gas. This is felt most likely be related to gas containing bowel adjacent to the gallbladder. Differential diagnosis includes gas within the gallbladder itself, yet this is considered to be less likely. Additional findings: Gallbladder wall polyp measuring nearly 4 mm. Dictated by: Joseph Moreira M.D. on 01/01/2023 at 9:53 Approved by: Joseph Moreira M.D. on 01/01/2023 at 9:56
[2022-12-31 10:28] LABS: Add Manual Diff / Slide Review NO; Basophils Absolute Auto 100 /uL (0-100); Basophils Percent Auto 0.8 % (0-2); Eosinophils Absolute Auto 100 /uL (0-450); Hematocrit 36.9 % (41-53); Hemoglobin 12.1 g/dL (13.5-17.5); Lymphocytes Absolute Auto 1900 /uL (1100-4500); Mean Corpuscular HGB Conc 32.8 % (30-36); Mean Corpuscular Hemoglobin 30.4 PG (26-34); Mean Corpuscular Volume 92.7 fL (80-100); Monocytes Absolute Auto 400 /uL (0-900); Monocytes Percent Auto 7.4 % (3-14); Neutrophils Absolute Auto 3500 /uL (1500-7000); Neutrophils Percent Auto 58.8 % (50-75); Platelet Count 183 X10^3/uL (150-400); Red Blood Cell Count 3.98 X10^6/uL (4.5-5.9); Red Cell Distribution Width 14.2 % (11.6-14.8)
[2022-12-31 11:17] LABS: Alanine Aminotransferase 6 IU/L (<50); Albumin 3.4 g/dL (3.5-5.0); Albumin Globulin Ratio 1.4 (1.0-2.8); Alkaline Phosphatase 80 U/L (38-126); Amylase 65 U/L (30-110); Aspartate Aminotransferase 23 IU/L (17-59); BUN Creatinine Ratio 26.7 (6-22); Bilirubin Total 0.8 mg/dL (0.2-1.3); Blood Urea Nitrogen 24 mg/dL (9-20); Carbon Dioxide 33 mmol/L (22-32); Chloride 104 mmol/L (98-107); Estimated Glomerular Filt Rate > 60 mL/min (>60); Globulin 2.5 g/dL (1.7-4.1); Glucose 83 mg/dL (80-110); HEMOLYSIS < 15 (0-50); Lipase 36 U/L (23-300); Potassium 4.6 mmol/L (3.4-5.1); Sodium 138 mmol/L (137-145); Total Protein 5.9 g/dL (6.3-8.2)
[2022-12-31 11:37] LABS: Appearance Urine UA CLEAR; Bilirubin Urine UA NEGATIVE (NEGATIVE); Color Urine UA YELLOW; Glucose Urine UA NEGATIVE (Negative); Ketones Urine UA NEGATIVE (NEGATIVE); Leukocyte Esterase Urine UA NEGATIVE (NEGATIVE); Nitrite Urine UA NEGATIVE (Negative); Occult Blood Urine UA NEGATIVE (Negative); Protein Urine UA NEGATIVE (Negative); Specific Gravity Urine UA 1.015 (1.000-1.035); pH Urine UA 6.5 (4.5-8.0)
[2022-12-31 11:40] LABS: Prostate Specific Antigen 4.32 ng/mL (0.10-4.00)
[2022-12-31 11:44] LABS: Bacteria Urine None Seen; Culture Indicated Urine Cult Not Indicated; RBC Urine None Seen (0-5/HPF); Urine Comments Microscopic Normal; WBC Urine None Seen (0-5/HPF)
== END ==
PROVIDERS: PCP Nurse Practitioner Gerontology; Referring Provider Nurse Practitioner Gerontology; Visit Provider Nurse Practitioner Gerontology
DX: R10.11 Right upper quadrant pain (principal); K82.4 Cholesterolosis of gallbladder; N39.0 Urinary tract infection, site not specified; G20 Parkinson's disease; I10 Essential (primary) hypertension; E78.5 Hyperlipidemia, unspecified
CPT/HCPCS: 36415; 76705; 80053; 81001; 82150; 83690; 84153; 85025

== ENCOUNTER 2023-01-01 10:19 | Emergency (ER) | payer OTHER, SELFPAY ==
[2023-01-01 10:26] VITALS: BP 106/44; PULSE 58; RESP 16; TEMP 36.4; O2SAT 98; BMI 22.8
--- NOTE | 2023-01-01 11:03 | DI.RAD.S_ITS ---
PROCEDURE: XR CHEST 1V INDICATIONS: low bp TECHNIQUE: One view of the chest was acquired. COMPARISON: [facility], CR, XR CHEST 1V, 06/05/2022, 2:13. FINDINGS: Surgical changes and devices: None. Lungs and pleura: Lungs are clear. No pleural effusions or pneumothorax. Mediastinum: Mediastinal contours appear normal. Heart size is normal. Bones and chest wall: No suspicious bony lesions. Overlying soft tissues appear unremarkable. IMPRESSION: No acute cardiopulmonary abnormality. Dictated by: José Manuel Rasmussen M.D. on 01/01/2023 at 11:57 Approved by: José Manuel Rasmussen M.D. on 01/01/2023 at 11:57
[2023-01-01 11:19] LABS: Add Manual Diff / Slide Review NO; Basophils Absolute Auto 0 /uL (0-100); Basophils Percent Auto 0.6 % (0-2); Eosinophils Absolute Auto 100 /uL (0-450); Eosinophils Percent Auto 1.7 % (2-4); Hematocrit 36.4 % (41-53); Lymphocytes Absolute Auto 1800 /uL (1100-4500); Lymphocytes Percent Auto 28.6 % (25-40); Mean Corpuscular Hemoglobin 30.4 PG (26-34); Mean Corpuscular Volume 92.2 fL (80-100); Monocytes Absolute Auto 500 /uL (0-900); Monocytes Percent Auto 7.8 % (3-14); Neutrophils Absolute Auto 3900 /uL (1500-7000); Neutrophils Percent Auto 61.3 % (50-75); Platelet Count 174 X10^3/uL (150-400); Red Blood Cell Count 3.95 X10^6/uL (4.5-5.9); Red Cell Distribution Width 14.2 % (11.6-14.8); White Blood Cell Count 6.4 X10^3/uL (4.5-11.0)
[2023-01-01 11:31] LABS: INR 1.1 (0.9-1.3)
[2023-01-01 11:34] LABS: PTT Partial Thromboplastin Tim 33 SECONDS (26-36)
[2023-01-01 11:39] LABS: Lactate (Lactic Acid) 0.7 mmol/L (0.7-2.1)
[2023-01-01 11:53] LABS: Alanine Aminotransferase 9 IU/L (<50); Albumin 3.6 g/dL (3.5-5.0); Albumin Globulin Ratio 1.4 (1.0-2.8); Alkaline Phosphatase 76 U/L (38-126); Aspartate Aminotransferase 27 IU/L (17-59); Bilirubin Total 0.9 mg/dL (0.2-1.3); Blood Urea Nitrogen 27 mg/dL (9-20); Calcium 8.2 mg/dL (8.4-10.2); Carbon Dioxide 27 mmol/L (22-32); Chloride 106 mmol/L (98-107); Creatine Kinase 103 U/L (55-170); Estimated Glomerular Filt Rate > 60 mL/min (>60); Globulin 2.5 g/dL (1.7-4.1); Glucose 87 mg/dL (80-110); HEMOLYSIS < 15 (0-50); Lipase 49 U/L (23-300); Potassium 4.8 mmol/L (3.4-5.1); Sodium 137 mmol/L (137-145); Total Protein 6.1 g/dL (6.3-8.2)
--- NOTE | 2023-01-01 11:53 | ED.DIZZY ---
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 Patient presents today he had had breakfast, he felt like he was blurry vision and a little bit lightheaded. They checked [facility] he was [facility] by [facility] auto so do not have EMS notes on arrival he was 100 systolic. Patient states he did not pass out. He denies chest pain, no new shortness of breath, no new swelling in extremities. No nausea no vomiting no changes to bowel movements. Patient states his blood pressure has been labile has been quite elevated at times and sometimes low typically about 140. He used to be on blood pressure medication but it was stopped because he would would be very low. He is not on anything to elevate his blood pressure. Patient states he has been having some right-sided abdominal pain for about 6 or 7 weeks, he was seen yesterday had ultrasound and urinalysis, he states it sort of intermittent stabbing and now little bit more achy sensation it is on the right mid abdomen does not radiate to the back. He states food does not seem to make it worse there has been no rashes or skin changes. He had a fall in [place] about 3 weeks ago but states the pain actually started before. Patient states he is on medications for Parkinson's every 3 hours. He is had back surgery x3 and states he has had surgery all the way up into the thoracic spine, had abdominal surgery for detorsion of a volvulus did not require resection. States he is allergic to Haldol. No tobacco, alcohol or illicit. He currently lives at [facility]. Lila Pang is his PCP. Related Data Previous Rx's Medication Instructions Recorded hydrocodone 5 mg-acetaminophen 325 1 tab PO Q4-6H PRN pain #7 tabs 01/01/19 mg tablet ([place]) Allergies Allergy/AdvReac Type Severity Reaction Status Date / Time haloperidol [From Haldol] Allergy Verified 01/01/23 10:28 Review of Systems Review of Systems ROS Unobtainable: All systems reviewed & are unremarkable except as noted in HPI and below Patient History Medical History CVA (cerebral vascular accident) Parkinsons disease Social History lives independently: Yes Smoking Status: Never smoker Smoking Status: Never smoker Substance Use Type: does not use Exam Narrative Exam Narrative: GEN: well nourished, well appearing elderly male, alert and oriented x [default value], patient appears to be in mild distress. HEENT: Atraumatic, pupils are equal round reactive to light, extraocular movements are intact, nares are clear, there is no conjunctival pallor. Throat is clear without any exudates, erythema, tonsillar enlargement or uvular deviation HEART: Regular rate and rhythm without murmur, clicks, rubs. No JVD. No edema bilaterally. LUNGS:Lungs clear to auscultation, no wheezes, rales, crackles, chest moves symmetrically ABD:bowel sounds normal, soft, non-tender, no guarding, rebound, rigidity, no masses noted, no hepatosplenomegaly :No CVA tenderness MSCL: Non-tender, no muscle atrophy, muscles strength 5/5 upper and lower extremities, full range of motion, normal gait NEURO:CN 2-12 intact, sensation normal SKIN: No rash, erythema or other skin changes Initial Vital Signs Initial Vital Signs: Vital Signs Temperature 97.6 F 01/01/23 10:26 Pulse Rate 58 L 01/01/23 10:26 Respiratory Rate 16 01/01/23 10:26 Blood Pressure 106/44 L 01/01/23 10:26 Pulse Oximetry 98 01/01/23 10:26 Oxygen Delivery Method Room Air 01/01/23 10:26 Course Orders Ordered: ED Orders 01/01/23 11:03 XR chest 1V Stat Comprehensive Metabolic Panel Stat Lactate (Lactic Acid) Stat Lipase Stat NT-proBNP (BNP-Adult 18+) Stat Troponin & CK Cardiac Panel Stat 01/01/23 11:10 Complete Blood Count AUTO DIFF Stat PTT Partial Thromboplastin Andrew Stat Prothrombin Time INR Stat 01/01/23 11:29 EKG-12 Lead Stat 01/01/23 11:40 Blood Culture Stat 01/01/23 12:15 CT abdomen pelvis w con Stat Discontinued Medications Carbidopa/Levodopa (Carbidopa-Levodopa Er 50/200 Tablet) 1 each PO NOW ONE Stop: 01/01/23 12:44 Last Admin: 01/01/23 13:19 Dose: 1 each Documented By: JODI Carbidopa/Levodopa (Carbidopa-Levodopa Er 50/200 Tablet) 1 each PO NOW ONE Stop: 01/01/23 12:44 Last Admin: 01/01/23 13:19 Dose: 1 each Documented By: JODI Sodium Chloride (Normal Saline 0.9%) 1,000 mls @ 1,000 mls/hr IV BOLUS ONE Stop: 01/01/23 13:30 Last Infusion: 01/01/23 14:27 Dose: 0 mls/hr Documented By: Admin: 01/01/23 13:19 Dose: 1,000 mls/hr Documented By: JODI Vital Signs Vital signs: Vital Signs - 8 hr 01/01/23 13:45 01/01/23 14:30 01/01/23 14:49 Pulse Rate 64 54 L 67 Respiratory Rate 16 18 18 Blood Pressure 173/90 H 173/90 H Pulse Oximetry 97 97 97 Oxygen Delivery Method Room Air Room Air Room Air MDM - Dizziness Lab Data 01/01/23 11:10 01/01/23 11:03 Labs: Lab Results 01/01/23 01/01/23 01/01/23 Range/Units 11:03 11:03 11:10 WBC (4.5-11.0) X10^3/uL RBC (4.5-5.9) X10^6/uL Hgb (13.5-17.5) g/dL Hct (41-53) % MCV (80-100) fL MCH (26-34) PG MCHC (30-36) % RDW (11.6-14.8) % Plt Count (150-400) X10^3/uL Neut % (Auto) (50-75) % Lymph % (Auto) (25-40) % [place] % (Auto) (3-14) % Eos % (Auto) (2-4) % Baso % (Auto) (0-2) % Neut # (Auto) (7429-5678) /uL Lymph # (Auto) (4201-1796) /uL [place] # (Auto) (0-900) /uL Eos # (Auto) (0-450) /uL Baso # (Auto) (0-100) /uL PT 13.0 H (10.1-12.7) SECONDS INR 1.1 (0.9-1.3) APTT 33 (26-36) SECONDS Sodium 137 (137-145) mmol/L Potassium 4.8 (3.4-5.1) mmol/L Chloride 106 (98-107) mmol/L Carbon Dioxide 27 (22-32) mmol/L BUN 27 H (9-20) mg/dL Creatinine 1.04 (0.66-1.25) mg/dL Estimated GFR > 60 (>60) mL/min BUN/Creatinine Ratio 26.0 H (6-22) Glucose 87 (80-110) mg/dL Lactate 0.7 (0.7-2.1) mmol/L Calcium 8.2 L (8.4-10.2) mg/dL Total Bilirubin 0.9 (0.2-1.3) mg/dL AST 27 (17-59) IU/L ALT 9 (<50) IU/L Alkaline Phosphatase 76 (38-126) U/L Total Creatine Kinase 103 (55-170) U/L CK-MB (CK-2) 2.19 (<2.37) ng/mL CK-MB (CK-2) Rel Index 2.1 (1.5-5.0) % Troponin I < 0.012 (0.01-0.034) ng/mL NT-Pro-B Natriuret Pep 434 (<450) pg/mL Total Protein 6.1 L (6.3-8.2) g/dL Albumin 3.6 (3.5-5.0) g/dL Globulin 2.5 (1.7-4.1) g/dL Albumin/Globulin Ratio 1.4 (1.0-2.8) Lipase 49 (23-300) U/L 01/01/23 Range/Units 11:10 WBC 6.4 (4.5-11.0) X10^3/uL RBC 3.95 L (4.5-5.9) X10^6/uL Hgb 12.0 L (13.5-17.5) g/dL Hct 36.4 L (41-53) % MCV 92.2 (80-100) fL MCH 30.4 (26-34) PG MCHC 33.0 (30-36) % RDW 14.2 (11.6-14.8) % Plt Count 174 (150-400) X10^3/uL Neut % (Auto) 61.3 (50-75) % Lymph % (Auto) 28.6 (25-40) % Oldham % (Auto) 7.8 (3-14) % Eos % (Auto) 1.7 L (2-4) % Baso % (Auto) 0.6 (0-2) % Neut # (Auto) 3900 (1463-4388) /uL Lymph # (Auto) 1800 (0878-1963) /uL Oldham # (Auto) 500 (0-900) /uL Eos # (Auto) 100 (0-450) /uL Baso # (Auto) 0 (0-100) /uL PT (10.1-12.7) SECONDS INR (0.9-1.3) APTT (26-36) SECONDS Sodium (137-145) mmol/L Potassium (3.4-5.1) mmol/L Chloride (98-107) mmol/L Carbon Dioxide (22-32) mmol/L BUN (9-20) mg/dL Creatinine (0.66-1.25) mg/dL Estimated GFR (>60) mL/min BUN/Creatinine Ratio (6-22) Glucose (80-110) mg/dL Lactate (0.7-2.1) mmol/L Calcium (8.4-10.2) mg/dL Total Bilirubin (0.2-1.3) mg/dL AST (17-59) IU/L ALT (<50) IU/L Alkaline Phosphatase (38-126) U/L Total Creatine Kinase (55-170) U/L CK-MB (CK-2) (<2.37) ng/mL CK-MB (CK-2) Rel Index (1.5-5.0) % Troponin I (0.01-0.034) ng/mL NT-Pro-B Natriuret Pep (<450) pg/mL Total Protein (6.3-8.2) g/dL Albumin (3.5-5.0) g/dL Globulin (1.7-4.1) g/dL Albumin/Globulin Ratio (1.0-2.8) Lipase (23-300) U/L ECG Data Attestation: I personally reviewed and interpreted this ECG as follows: Interpretation: Sinus bradycardia rate of 53 IN 164 QRS 82 QTC 388. No acute ST elevation. Patient has prior from 06/05/2022 which appears similar. MDM Narrative Medical decision making narrative: This is an 82-year-old male who presents with complaint of low blood pressure and blurred vision he felt a little lightheaded reportedly was 60 [place] [facility] but was sent by private auto. No syncope, was systolic of 100 here on arrival is now more elevated. He did have some fluids in the department. Workup does not show any acute cardiac changes EKG shows no change. Hemoglobin appropriate at 12, normal renal function, electrolytes BUN slightly elevated at 27, negative troponin, BNP, no other signs of infectious source or cause of hypotension. Patient had a UA yesterday which was negative and after discussion patient defers repeat here. He is not been symptomatic. He notes some right abdominal pain patient had an outpatient ultrasound that showed possible narrowing at the pancreatic duct and gallbladder wall polyp. CT was recommended was obtained shows no acute change. Discussed findings with patient he is noted to have Parkinson's he notes his blood pressure has been labile in the past he had his home blood pressure medication stopped secondary do this and maybe a component of autonomic dysfunction. Reviewed this with patient and family they feel comfortable with this plan. Patient's was due for 1:00 p.m. meds actually missed his 10:00 a.m. Parkinson's medications he received 2 5/100 carbidopa levodopa as which is about equivalent with his usual dose. Discharge Plan Departure Patient Disposition: Home Clinical Impression: Dizziness, Gallbladder polyp Instructions: DI for Dizziness-Nonvertigo Activity Restrictions/Additional Instructions: Please follow-up for recheck. Some individuals with Parkinson's can not get autonomic dysfunction and they will have labile blood pressures this may be a component of why your blood pressure is sometimes high and sometimes very low No clear cause was found for your right-sided abdominal pain, your ultrasound showed a polyp on the gallbladder but the CT did not show any masses or may either changes otherwise. Please follow-up for recurrent episodes, new lightheadedness, passing out, vomiting, fevers, black or bloody stools, new swelling in her extremities or other new or concerning changes. Prescriptions: No Action hydrocodone-acetaminophen [[place]] 5-325 mg tablet 1 tab PO Q4-6H PRN (Reason: pain) Qty: 7 0RF Referrals: Lila Pang ARNP [Primary Care Provider] - Stand Alone Forms: Patient Portal/API
[2023-01-01 12:03] LABS: Troponin I < 0.012 ng/mL (0.01-0.034)
[2023-01-01 12:08] LABS: CKMB % Relative Index 2.1 % (1.5-5.0); Creatine Kinase MB 2.19 ng/mL (<2.37)
--- NOTE | 2023-01-01 12:15 | DI.CT.S_ITS ---
PROCEDURE: CT ABDOMEN PELVIS W CON INDICATIONS: dizzy, low blood pressure intermittent, gb has polyp, change TECHNIQUE: After the administration of intravenous contrast, axial sections acquired from the lung bases to the pubic symphysis. Coronal and sagittal reformats were performed. For radiation dose reduction, the following was used: automated exposure control, adjustment of mA and/or kV according to patient size. COMPARISON: None. FINDINGS: Image quality: Excellent. Lung bases: Unremarkable. Heart: No significant findings. ABDOMEN: Liver: Unremarkable. Gallbladder: Unremarkable. Biliary ducts: Unremarkable. Pancreas: Unremarkable. Spleen: Unremarkable. Adrenal Glands: Unremarkable. Kidneys and Ureters: Unremarkable. Stomach and Bowel: Stomach, small bowel loops, and colon are unremarkable. Peritoneum: No abnormal intraperitoneal fluid. No free air. Ventral Wall: No hernias. Abdominal Nodes: No retroperitoneal or mesenteric adenopathy by size criteria. Vessels: The aorta has atherosclerosis with no aneurysmal dilatation. PELVIS: Pelvic Organs: Unremarkable. Bladder: Unremarkable. Pelvic Nodes: No enlarged lymph nodes. Miscellaneous: There is a fat containing right inguinal hernia. Bones: Degenerative changes with no focal abnormality. Postoperative changes in the lumbar spine. IMPRESSION: No acute abnormality of the abdomen or pelvis. Dictated by: José Manuel Rasmussen M.D. on 01/01/2023 at 12:51 Approved by: José Manuel Rasmussen M.D. on 01/01/2023 at 12:56
[2023-01-01 12:29] LABS: NT-proBNP (BNP-Adult 18+) 434 pg/mL (<450)
[2023-01-01] MEDS: SODIUM CHLORIDE 0.9% 1,000 ML 1000 ML IV (13:19)
[2023-01-01] MEDS: CARBIDOPA-LEVODOPA ER 50/200 TABLET 1 EACH PO ×2 (13:19)
[2023-01-01 13:45] VITALS: PULSE 64; RESP 16; O2SAT 97
--- NOTE | 2023-01-01 13:50 | PC.NURSE ---
Pt states he recently moved into assisted living in [place]. Pt diagnosed with Parkinsons 16 yrs ago. States his vision is always challenging due to depth perception issues. However, this morning pt feels lightheaded dizzy.
[2023-01-01 14:30] VITALS: BP 173/90; PULSE 54; RESP 18; O2SAT 97
[2023-01-01 14:49] VITALS: BP 173/90; PULSE 67; RESP 18; O2SAT 97
== END 2023-01-01 14:54 | disposition home or self-care (01) ==
PROVIDERS: Emergency Provider Emergency Medicine; PCP Nurse Practitioner Gerontology
DX: R42 Dizziness and giddiness (principal); K82.4 Cholesterolosis of gallbladder; H53.8 Other visual disturbances; I95.9 Hypotension, unspecified
CPT/HCPCS: 36415; 71045; 74177; 80053; 82550; 82553; 83605; 83690; 83880; 84484; 85025; 85610; 85730; 87040; 93005; 93010; 96360; 99284; Q9967

== ENCOUNTER 2023-02-10 10:37 | Emergency (ER) | payer OTHER, SELFPAY ==
[2023-02-10] VITALS (37 sets, daily range): BP systolic 114–208; BP diastolic 61–117; PULSE 45–75; RESP 13–27; TEMP 36.4; O2SAT 94–100; BMI 22.8
--- NOTE | 2023-02-10 10:49 | DI.RAD.S_ITS ---
PROCEDURE: XR CHEST 1V INDICATIONS: chest pain TECHNIQUE: One view of the chest was acquired. COMPARISON: [facility], CR, XR CHEST 1V, 01/01/2023, 11:17. FINDINGS: Surgical changes and devices: None. Lungs and pleura: Lungs are clear. No pleural effusions or pneumothorax. Mediastinum: Mediastinal contours appear normal. Heart size is normal. Bones and chest wall: No suspicious bony lesions. Overlying soft tissues appear unremarkable. IMPRESSION: No acute cardiopulmonary pathology. Dictated by: Jamal Laird M.D. on 02/10/2023 at 11:37 Approved by: Jamal Laird M.D. on 02/10/2023 at 11:37
[2023-02-10 10:58] LABS: Add Manual Diff / Slide Review NO; Basophils Absolute Auto 0 /uL (0-100); Basophils Percent Auto 0.8 % (0-2); Eosinophils Absolute Auto 100 /uL (0-450); Eosinophils Percent Auto 1.6 % (2-4); Hematocrit 32.5 % (41-53); Hemoglobin 10.7 g/dL (13.5-17.5); Lymphocytes Absolute Auto 1600 /uL (1100-4500); Lymphocytes Percent Auto 32.1 % (25-40); Mean Corpuscular HGB Conc 32.9 % (30-36); Mean Corpuscular Hemoglobin 30.1 PG (26-34); Mean Corpuscular Volume 91.6 fL (80-100); Monocytes Absolute Auto 500 /uL (0-900); Monocytes Percent Auto 9.4 % (3-14); Neutrophils Absolute Auto 2700 /uL (1500-7000); Neutrophils Percent Auto 56.1 % (50-75); Platelet Count 161 X10^3/uL (150-400); Red Blood Cell Count 3.56 X10^6/uL (4.5-5.9); Red Cell Distribution Width 14.7 % (11.6-14.8); White Blood Cell Count 4.9 X10^3/uL (4.5-11.0)
[2023-02-10 11:08] LABS: INR 1.2 (0.9-1.3); Prothrombin Time 13.3 SECONDS (10.1-12.7)
[2023-02-10 11:10] LABS: Alanine Aminotransferase 8 IU/L (<50); Albumin 3.1 g/dL (3.5-5.0); Albumin Globulin Ratio 1.3 (1.0-2.8); Alkaline Phosphatase 63 U/L (38-126); Aspartate Aminotransferase 19 IU/L (17-59); BUN Creatinine Ratio 22.7 (6-22); Bilirubin Total 0.9 mg/dL (0.2-1.3); Blood Urea Nitrogen 25 mg/dL (9-20); Calcium 7.6 mg/dL (8.4-10.2); Carbon Dioxide 27 mmol/L (22-32); Chloride 107 mmol/L (98-107); Creatine Kinase 89 U/L (55-170); Estimated Glomerular Filt Rate > 60 mL/min (>60); Globulin 2.3 g/dL (1.7-4.1); Glucose 83 mg/dL (80-110); HEMOLYSIS 24 (0-50); Lipase 49 U/L (23-300); Magnesium 2.1 mg/dL (1.6-2.3); PTT Partial Thromboplastin Tim 28 SECONDS (26-36); Potassium 4.5 mmol/L (3.4-5.1); Sodium 136 mmol/L (137-145); Total Protein 5.4 g/dL (6.3-8.2)
[2023-02-10 11:22] LABS: Troponin I < 0.012 ng/mL (0.01-0.034)
--- NOTE | 2023-02-10 11:51 | DI.MRI.S_ITS ---
PROCEDURE: MR HEAD/BRAIN WO CON INDICATIONS: syncope/possible stroke TECHNIQUE: Noncontrast axial T1 spin echo, axial T2 fast spin echo, sagittal and axial FLAIR, coronal T2 fast spin echo, axial gradient echo, axial diffusion and ADC through the brain. COMPARISON: None. FINDINGS: Image quality: Excellent. CSF Spaces: Basal cisterns are patent. No extra-axial fluid collections. Ventricles are normal in size and shape. Brain: No intracranial masses or hemorrhage. Wood/white matter interface is normal. Brainstem appears normal. Diffusion-weighted images demonstrate no acute ischemic insult. No chronic ischemic insults. Normal intravascular flow voids are present. Mild atrophy and white matter chronic ischemic change noted. Skull and face: Calvarium has normal marrow signal. Orbits appear normal. Sinuses: Sinuses and mastoids are clear. IMPRESSION: Mild atrophy and white matter chronic ischemic change without intracranial infarct, hemorrhage or mass lesion Approved by: Neno Nugent M.D. on 02/10/2023 at 14:09
--- NOTE | 2023-02-10 11:51 | DI.ECHO.S_ITS ---
[facility]---------+ [facility] +---------+ : : [address] : : : : [id number] : : : : Phone: [phone] Echocardiogram Report + + :Name: KIRTI BE Study Date: 02/10/2023 Height: 68 in : :[facility] ReadingLocation: Weight: 150 lb : : Gender: Male BSA: 1.8 m2 : :: 1940 Age: 82 yrs BP: 129/65 mmHg: :Reason For Study: SYNCOPE : :Ordering Physician: PERI, : :SOM Performed By: Gisselle Donaldson : :Referring: SOM WHITT : + + Interpretation Summary Normal sinus rhythm. Normal LV size and wall thickness. Normal wall motion and LV systolic function. Ejection fraction 60-65%. Stage I diastolic dysfunction. Borderline LA enlargement; otherwise normal chamber sizes. Aortic sclerosis without stenosis. Otherwise no significant valvular abnormalities. Ascending aorta measuring 3.8 cm in diameter (is at the upper limit of normal range). No prior study available for comparison. Procedure: A two-dimensional transthoracic echocardiogram with color flow and Doppler was performed. The study quality was technically adequate. There is no prior echocardiogram noted for this patient. The patient was in sinus rhythm with heart rates between 56-66 bpm during the exam. Left Ventricle: The left ventricle is normal in size and wall thickness. The ejection fraction is estimated to be 60-65%. Right Ventricle: The right ventricle is normal in size and function. Atria: The left atrium is borderline dilated. Right atrial size is normal. There is no Doppler evidence for an interatrial shunt. Mitral Valve: The mitral valve is normal in structure and function. There is mild mitral regurgitation. Aortic Valve: The aortic valve is mildly calcified. There is no aortic valve stenosis. No aortic regurgitation is present. Tricuspid Valve: The tricuspid valve is normal in structure and function. There is mild tricuspid regurgitation. The right ventricular systolic pressure is estimated to be at least 41 mmHg based on an estimated right atrial pressure of 3 mm Hg. Pulmonic Valve: The pulmonic valve leaflets are thin and pliable; valve motion is normal. There is no pulmonic valvular regurgitation. Great Vessels: The aortic root is normal size. The ascending aorta is at the upper limits of normal in size. The IVC is of normal diameter and collapses greater than 50% with a sniff. This suggests a low right atrial pressure of 3 mm Hg. Pericardium/ Pleura There is no pericardial effusion. There is no pleural effusion. MMode/2D Measurements & Calculations LVIDd: 4.6 cm LVOT diam: 2.0 cm LVIDs: 3.1 cm Ao root diam: 3.3 cm FS: 34.0 % asc Aorta Diam: 3.8 cm EPSS: 0.80 cm IVSd: 0.93 cm LVPWd: 0.86 cm LV johnson. diameter/BSA (cm/m^2): 2.6 LV sys. diameter/BSA (cm/m^2): 1.7 LA A2 area: 21.8 cm2 RA long axis: 6.0 cm LA A4 area: 18.1 cm2 RA area: 19.9 cm2 LA length (vol): 5.2 cm RA vol: 56.0 ml LA vol: 63.9 ml RA : 31.0 ml/m2 LA vol index: 35.3 ml/m2 IVC diam: 1.1 cm RVD1 (basal): 3.4 cm RVD2 (mid): 2.7 cm TAPSE: 2.2 cm Doppler Measurements & Calculations Ao V2 max: 150.2 cm/sec LVOT Max Dc: 107.3 cm/sec Ao V2 mean: 104.9 cm/sec LV V1 max P.6 mmHg Ao max P.0 mmHg LV V1 VTI: 24.8 cm Ao mean P.8 mmHg RICHARD(I,D): 2.1 cm2 Ao V2 VTI: 35.9 cm RICHARD(V,D): 2.2 cm2 sev ratio: 0.69 RICHARD indexed to BSA (cm^2/m^2): 1.2 MV E max dc: 98.2 cm/sec TR max dc: 309.9 cm/sec MV A max dc: 98.6 cm/sec TR max P.4 mmHg MV E/A: 1.00 PA V2 max: 80.9 cm/sec Med Peak E' Dc: 6.3 cm/sec PA V2 mean: 58.8 cm/sec E/E' med: 15.7 PA mean P.5 mmHg Lat Peak E' Dc: 8.8 cm/sec PA pr(Accel): 7.1 mmHg E/E' lat: 11.1 E/e' average: 13.4 MV dec time: 0.22 sec [facility] 75.0 ml Electronically signed by: Cinthya Santizo M.D. on [place] Physician:02/10/2023 01:35 PM
--- NOTE | 2023-02-10 11:55 | ED_ITS ---
HPI - Syncope General Chief Complaint: Syncope Stated Complaint: Weakness Time Seen by Provider: 02/10/23 11:36 Source: patient Mode of arrival: EMS Limitations: no limitations History of Present Illness HPI narrative: Patient here for syncopal/near syncopal episode. Patient here from [facility]. Patient states he got up uses walker to go to the dining room for breakfast. Ate a good breakfast he states. Got up using his walker to head back to his room, he felt dizzy and weak and used his walker to lower himself to the ground. He thinks he may have passed out in if he did it was not very long. No seizure activity. Denies any pre event or post-event headache chest pain back pain abdominal pain. He does have history of Parkinson's and a stroke past. He states it does not feel like his Parkinson's that cause this morning event. Denies any slurred speech or facial droop. He has a resting tremor which is not new. He feels much better at this time. Denies any recent illness. Patient in no distress at this time Related Data Home Medications Medication Instructions Recorded Confirmed alendronate 70 mg tablet 70 mg PO QWEEK 02/10/23 02/10/23 atorvastatin 20 mg tablet 20 mg PO QPM 02/10/23 02/10/23 brimonidine 0.2 % eye drops 1 drp EYE-BOTH BID 02/10/23 02/10/23 carbidopa ER 48.75 mg-levodopa 195 1 cap PO BID 02/10/23 02/10/23 mg capsule,extended release carbidopa ER 48.75 mg-levodopa 195 2 cap PO TID 02/10/23 02/10/23 mg capsule,extended release clopidogrel 75 mg tablet 75 mg PO DAILY 02/10/23 02/10/23 duloxetine 60 mg capsule,delayed 60 mg PO DAILY 02/10/23 02/10/23 release sprinkle gabapentin 600 mg tablet 600 mg PO TID 02/10/23 02/10/23 latanoprost 0.005 % eye drops 1 drp ophthalmic (eye) QPM 02/10/23 02/10/23 mecobalamin (vitamin B12) 1,000 1,000 mcg sublingual DAILY 02/10/23 02/10/23 mcg disintegrating tablet,sublingual melatonin 3 mg tablet 3 mg PO BEDTIME 02/10/23 02/10/23 metoprolol succinate 25 mg 25 mg PO BID 02/10/23 02/10/23 tablet,extended release 24 hr pantoprazole 20 mg tablet,delayed 20 mg PO DAILY 02/10/23 02/10/23 release pimavanserin 34 mg capsule 34 mg PO DAILY 02/10/23 02/10/23 pramipexole 1.5 mg tablet 1.5 mg PO TID 02/10/23 02/10/23 quetiapine 25 mg tablet 25 mg PO BID 02/10/23 02/10/23 tamsulosin 0.4 mg capsule 0.4 mg PO BEDTIME 02/10/23 02/10/23 timolol maleate 0.5 % eye drops 1 drp ophthalmic (eye) BID 02/10/23 02/10/23 Previous Rx's Medication Instructions Recorded hydrocodone 5 mg-acetaminophen 325 1 tab PO Q4-6H PRN pain #7 tabs 01/01/19 mg tablet ([place]) Allergies Allergy/AdvReac Type Severity Reaction Status Date / Time azithromycin Allergy Verified 02/10/23 10:44 haloperidol [From Haldol] Allergy Verified 02/10/23 10:44 Review of Systems Review of Systems Narrative: GENERAL: negative chills, fatigue, malaise, fever, sweats. HEENT: negative sinus pain, ear pain, sore throat RESPIRATORY: negative dyspnea, cough CARDIOVASCULAR: negative chest pain, palpitations GASTROINTESTINAL: negative nausea, vomiting, abdominal pain : negative dysuria, frequency, hematuria MUSCULOSKELETAL: negative muscle or bony pain SKIN: negative rash, skin lesions NEUROLOGIC: Negative slurred speech negative headache, positive weakness, neg ative numbness ROS Unobtainable: All systems reviewed & are unremarkable except as noted in HPI and below Patient History Medical History CVA (cerebral vascular accident) Parkinsons disease Social History lives independently: Yes Smoking Status: Never smoker Smoking Status: Never smoker Substance Use Type: does not use Exam Narrative Exam Narrative: GENERAL: in no distress, not toxic not dyspneic HEAD: Normocephalic. EYES: Pupils equal round ENT: Mucous membranes moist. NECK: Trachea midline. CARDIOVASCULAR: Regular rate and rhythm without murmurs RESPIRATORY: Clear to auscultation. Breath sounds equal bilaterally. No wheezes, rales, or rhonchi. GASTROINTESTINAL: Abdomen soft, non-tender EXTREMITIES: No gross deformities. BACK: No flank tenderness. NEURO: AOx4. Clear speech no facial droop light touch intact to bilateral face and hands with strong equal hadoop developer. Patient does have a resting tremor which is chronic. History of Parkinson's. Able to stand at bedside, able to provide urine sample with urinal standing at bedside unassisted. Fast exam at this time negative SKIN: Warm and dry PSYCH: Not anxious, is cooperative Initial Vital Signs Initial Vital Signs: Vital Signs Temperature 97.6 F 02/10/23 10:08 Pulse Rate 64 02/10/23 10:08 Respiratory Rate 15 02/10/23 10:08 Blood Pressure 116/70 02/10/23 10:08 Pulse Oximetry 95 02/10/23 10:08 Oxygen Delivery Method Room Air 02/10/23 10:08 Course Orders Ordered: Discontinued Medications Carbidopa/Levodopa (Carbidopa-Levodopa Er 50/200 Tablet) 1 each PO BID@1000,2000 JULIO Carbidopa/Levodopa (Carbidopa-Levodopa Er 50/200 Tablet) 2 each PO TID@0700,1300,1800 JULIO Last Admin: 02/10/23 15:12 Dose: 2 each Documented By: HOSSEIN Lactated Ringer's (Lactated Ringers) 500 mls @ 1,000 mls/hr IV BOLUS ONE Stop: 02/10/23 12:20 Last Infusion: 02/10/23 13:12 Dose: 0 mls/hr Documented By: Admin: 02/10/23 12:36 Dose: 1,000 mls/hr Documented By: RB Metoprolol Succinate (Metoprolol Er 25 Mg Tablet) 25 mg PO NOW ONE Stop: 02/10/23 16:09 Last Admin: 02/10/23 16:15 Dose: 25 mg Documented By: HOSSEIN Vital Signs Vital signs: Vital Signs - 8 hr 02/10/23 10:08 02/10/23 10:42 02/10/23 10:43 Temperature 97.6 F Pulse Rate 64 63 63 Pulse Rate [Orthostatic Lying] Pulse Rate [Orthostatic Sitting] Pulse Rate [Orthostatic Standing] Respiratory Rate 15 Blood Pressure 116/70 Blood Pressure [Orthostatic Lying] Blood Pressure [Orthostatic Sitting] Blood Pressure [Orthostatic Standing] Pulse Oximetry 95 95 96 Oxygen Delivery Method Room Air 02/10/23 10:43 02/10/23 11:00 02/10/23 11:00 Temperature Pulse Rate Pulse Rate [Orthostatic Lying] Pulse Rate [Orthostatic Sitting] Pulse Rate [Orthostatic Standing] Respiratory Rate 20 Blood Pressure 116/70 125/61 Blood Pressure [Orthostatic Lying] Blood Pressure [Orthostatic Sitting] Blood Pressure [Orthostatic Standing] Pulse Oximetry 95 Oxygen Delivery Method 02/10/23 11:11 02/10/23 11:11 02/10/23 11:24 Temperature Pulse Rate 65 57 L Pulse Rate [Orthostatic Lying] Pulse Rate [Orthostatic Sitting] Pulse Rate [Orthostatic Standing] Respiratory Rate 20 Blood Pressure 129/65 Blood Pressure [Orthostatic Lying] Blood Pressure [Orthostatic Sitting] Blood Pressure [Orthostatic Standing] Pulse Oximetry 95 94 Oxygen Delivery Method 02/10/23 11:24 02/10/23 11:30 02/10/23 11:31 Temperature Pulse Rate 55 L Pulse Rate [Orthostatic Lying] Pulse Rate [Orthostatic Sitting] Pulse Rate [Orthostatic Standing] Respiratory Rate Blood Pressure 114/79 Blood Pressure [Orthostatic Lying] Blood Pressure [Orthostatic Sitting] Blood Pressure [Orthostatic Standing] Pulse Oximetry 96 96 Oxygen Delivery Method 02/10/23 11:31 02/10/23 12:00 02/10/23 12:13 Temperature Pulse Rate 60 59 L Pulse Rate [Orthostatic Lying] Pulse Rate [Orthostatic Sitting] Pulse Rate [Orthostatic Standing] Respiratory Rate 13 19 Blood Pressure 137/64 Blood Pressure [Orthostatic Lying] Blood Pressure [Orthostatic Sitting] Blood Pressure [Orthostatic Standing] Pulse Oximetry 99 99 Oxygen Delivery Method 02/10/23 12:13 02/10/23 12:20 02/10/23 12:20 Temperature Pulse Rate 66 Pulse Rate [Orthostatic Lying] Pulse Rate [Orthostatic Sitting] Pulse Rate [Orthostatic Standing] Respiratory Rate Blood Pressure 167/75 H 164/81 H Blood Pressure [Orthostatic Lying] Blood Pressure [Orthostatic Sitting] Blood Pressure [Orthostatic Standing] Pulse Oximetry 99 Oxygen Delivery Method 02/10/23 12:30 02/10/23 12:30 02/10/23 12:40 Temperature Pulse Rate 63 57 L Pulse Rate [Orthostatic Lying] Pulse Rate [Orthostatic Sitting] Pulse Rate [Orthostatic Standing] Respiratory Rate 23 Blood Pressure 172/83 H Blood Pressure [Orthostatic Lying] Blood Pressure [Orthostatic Sitting] Blood Pressure [Orthostatic Standing] Pulse Oximetry 99 98 Oxygen Delivery Method 02/10/23 12:40 02/10/23 13:00 02/10/23 13:00 Temperature Pulse Rate 48 L Pulse Rate [Orthostatic Lying] Pulse Rate [Orthostatic Sitting] Pulse Rate [Orthostatic Standing] Respiratory Rate 25 H Blood Pressure 166/82 H 187/86 H Blood Pressure [Orthostatic Lying] Blood Pressure [Orthostatic Sitting] Blood Pressure [Orthostatic Standing] Pulse Oximetry 99 Oxygen Delivery Method 02/10/23 13:11 02/10/23 13:11 02/10/23 13:20 Temperature Pulse Rate 46 L 55 L Pulse Rate [Orthostatic Lying] Pulse Rate [Orthostatic Sitting] Pulse Rate [Orthostatic Standing] Respiratory Rate 25 H Blood Pressure 169/74 H Blood Pressure [Orthostatic Lying] Blood Pressure [Orthostatic Sitting] Blood Pressure [Orthostatic Standing] Pulse Oximetry 98 99 Oxygen Delivery Method 02/10/23 13:20 02/10/23 13:30 02/10/23 13:30 Temperature Pulse Rate 60 Pulse Rate [Orthostatic Lying] Pulse Rate [Orthostatic Sitting] Pulse Rate [Orthostatic Standing] Respiratory Rate Blood Pressure 184/82 H 183/90 H Blood Pressure [Orthostatic Lying] Blood Pressure [Orthostatic Sitting] Blood Pressure [Orthostatic Standing] Pulse Oximetry 99 Oxygen Delivery Method 02/10/23 13:40 02/10/23 13:40 02/10/23 13:50 Temperature Pulse Rate 45 L Pulse Rate [Orthostatic Lying] Pulse Rate [Orthostatic Sitting] Pulse Rate [Orthostatic Standing] Respiratory Rate 27 H 23 Blood Pressure 168/86 H Blood Pressure [Orthostatic Lying] Blood Pressure [Orthostatic Sitting] Blood Pressure [Orthostatic Standing] Pulse Oximetry 98 98 Oxygen Delivery Method 02/10/23 13:50 02/10/23 14:00 02/10/23 14:00 Temperature Pulse Rate 55 L Pulse Rate [Orthostatic Lying] Pulse Rate [Orthostatic Sitting] Pulse Rate [Orthostatic Standing] Respiratory Rate Blood Pressure 167/82 H 186/88 H Blood Pressure [Orthostatic Lying] Blood Pressure [Orthostatic Sitting] Blood Pressure [Orthostatic Standing] Pulse Oximetry 99 Oxygen Delivery Method 02/10/23 15:12 02/10/23 15:16 02/10/23 15:16 Temperature Pulse Rate 52 L 51 L Pulse Rate [Orthostatic Lying] Pulse Rate [Orthostatic Sitting] Pulse Rate [Orthostatic Standing] Respiratory Rate 22 Blood Pressure 208/91 H Blood Pressure [Orthostatic Lying] Blood Pressure [Orthostatic Sitting] Blood Pressure [Orthostatic Standing] Pulse Oximetry 98 99 Oxygen Delivery Method 02/10/23 15:20 02/10/23 15:20 02/10/23 15:30 Temperature Pulse Rate 49 L Pulse Rate [Orthostatic Lying] Pulse Rate [Orthostatic Sitting] Pulse Rate [Orthostatic Standing] Respiratory Rate Blood Pressure 203/95 H 201/93 H Blood Pressure [Orthostatic Lying] Blood Pressure [Orthostatic Sitting] Blood Pressure [Orthostatic Standing] Pulse Oximetry 100 Oxygen Delivery Method 02/10/23 15:30 02/10/23 15:48 02/10/23 15:40 Temperature Pulse Rate 47 L 56 L Pulse Rate [Orthostatic Lying] 51 L Pulse Rate [Orthostatic Sitting] 46 L Pulse Rate [Orthostatic Standing] 70 Respiratory Rate Blood Pressure Blood Pressure [Orthostatic Lying] 195/82 H Blood Pressure [Orthostatic Sitting] 204/94 H Blood Pressure [Orthostatic Standing] 199/94 H Pulse Oximetry 99 99 Oxygen Delivery Method 02/10/23 15:40 02/10/23 15:42 02/10/23 15:42 Temperature Pulse Rate 47 L Pulse Rate [Orthostatic Lying] Pulse Rate [Orthostatic Sitting] Pulse Rate [Orthostatic Standing] Respiratory Rate Blood Pressure 195/82 H 204/94 H Blood Pressure [Orthostatic Lying] Blood Pressure [Orthostatic Sitting] Blood Pressure [Orthostatic Standing] Pulse Oximetry 99 Oxygen Delivery Method 02/10/23 15:45 02/10/23 15:45 02/10/23 15:50 Temperature Pulse Rate 70 Pulse Rate [Orthostatic Lying] Pulse Rate [Orthostatic Sitting] Pulse Rate [Orthostatic Standing] Respiratory Rate Blood Pressure 199/94 H 196/86 H Blood Pressure [Orthostatic Lying] Blood Pressure [Orthostatic Sitting] Blood Pressure [Orthostatic Standing] Pulse Oximetry 99 Oxygen Delivery Method 02/10/23 15:50 02/10/23 16:00 02/10/23 16:00 Temperature Pulse Rate 53 L 59 L Pulse Rate [Orthostatic Lying] Pulse Rate [Orthostatic Sitting] Pulse Rate [Orthostatic Standing] Respiratory Rate Blood Pressure 176/117 H Blood Pressure [Orthostatic Lying] Blood Pressure [Orthostatic Sitting] Blood Pressure [Orthostatic Standing] Pulse Oximetry 100 98 Oxygen Delivery Method 02/10/23 16:15 02/10/23 17:01 Temperature Pulse Rate 60 75 Pulse Rate [Orthostatic Lying] Pulse Rate [Orthostatic Sitting] Pulse Rate [Orthostatic Standing] Respiratory Rate Blood Pressure 189/88 H 154/86 H Blood Pressure [Orthostatic Lying] Blood Pressure [Orthostatic Sitting] Blood Pressure [Orthostatic Standing] Pulse Oximetry Oxygen Delivery Method MDM - Syncope Lab Data 02/10/23 10:43 02/10/23 10:43 Labs: Lab Results 02/10/23 02/10/23 02/10/23 Range/Units 10:43 10:43 10:43 WBC 4.9 (4.5-11.0) X10^3/uL RBC 3.56 L (4.5-5.9) X10^6/uL Hgb 10.7 L (13.5-17.5) g/dL Hct 32.5 L (41-53) % MCV 91.6 (80-100) fL MCH 30.1 (26-34) PG MCHC 32.9 (30-36) % RDW 14.7 (11.6-14.8) % Plt Count 161 (150-400) X10^3/uL Neut % (Auto) 56.1 (50-75) % Lymph % (Auto) 32.1 (25-40) % [place] % (Auto) 9.4 (3-14) % Eos % (Auto) 1.6 L (2-4) % Baso % (Auto) 0.8 (0-2) % Neut # (Auto) 2700 (4028-9151) /uL Lymph # (Auto) 1600 (0497-5531) /uL [place] # (Auto) 500 (0-900) /uL Eos # (Auto) 100 (0-450) /uL Baso # (Auto) 0 (0-100) /uL PT 13.3 H (10.1-12.7) SECONDS INR 1.2 (0.9-1.3) APTT 28 (26-36) SECONDS Sodium 136 L (137-145) mmol/L Potassium 4.5 (3.4-5.1) mmol/L Chloride 107 (98-107) mmol/L Carbon Dioxide 27 (22-32) mmol/L BUN 25 H (9-20) mg/dL Creatinine 1.10 (0.66-1.25) mg/dL Estimated GFR > 60 (>60) mL/min BUN/Creatinine Ratio 22.7 H (6-22) Glucose 83 (80-110) mg/dL Calcium 7.6 L (8.4-10.2) mg/dL Magnesium 2.1 (1.6-2.3) mg/dL Total Bilirubin 0.9 (0.2-1.3) mg/dL AST 19 (17-59) IU/L ALT 8 (<50) IU/L Alkaline Phosphatase 63 (38-126) U/L Total Creatine Kinase 89 (55-170) U/L CK-MB (CK-2) TNP CK-MB (CK-2) Rel Index TNP Troponin I < 0.012 (0.01-0.034) ng/mL Total Protein 5.4 L (6.3-8.2) g/dL Albumin 3.1 L (3.5-5.0) g/dL Globulin 2.3 (1.7-4.1) g/dL Albumin/Globulin Ratio 1.3 (1.0-2.8) Lipase 49 (23-300) U/L Urine Color Urine Appearance Urine pH (4.5-8.0) Ur Specific [place] (1.000-1.035) Urine Protein (Negative) Urine Glucose (UA) (Negative) g/dL Urine Ketones (NEGATIVE) Urine Occult Blood (Negative) Urine Nitrate (Negative) Urine Bilirubin (NEGATIVE) Urine Urobilinogen (0.2) E.U./dL Ur Leukocyte Esterase (NEGATIVE) Urine RBC (0-5/HPF) Urine WBC (0-5/HPF) Ur Squamous Epith Cells (0-5/HPF) Urine Bacteria (None) Ur Culture Indicated? 02/10/23 Range/Units 11:45 WBC (4.5-11.0) X10^3/uL RBC (4.5-5.9) X10^6/uL Hgb (13.5-17.5) g/dL Hct (41-53) % MCV (80-100) fL MCH (26-34) PG MCHC (30-36) % RDW (11.6-14.8) % Plt Count (150-400) X10^3/uL Neut % (Auto) (50-75) % Lymph % (Auto) (25-40) % [place] % (Auto) (3-14) % Eos % (Auto) (2-4) % Baso % (Auto) (0-2) % Neut # (Auto) (6512-7574) /uL Lymph # (Auto) (0077-5546) /uL [place] # (Auto) (0-900) /uL Eos # (Auto) (0-450) /uL Baso # (Auto) (0-100) /uL PT (10.1-12.7) SECONDS INR (0.9-1.3) APTT (26-36) SECONDS Sodium (137-145) mmol/L Potassium (3.4-5.1) mmol/L Chloride (98-107) mmol/L Carbon Dioxide (22-32) mmol/L BUN (9-20) mg/dL Creatinine (0.66-1.25) mg/dL Estimated GFR (>60) mL/min BUN/Creatinine Ratio (6-22) Glucose (80-110) mg/dL Calcium (8.4-10.2) mg/dL Magnesium (1.6-2.3) mg/dL Total Bilirubin (0.2-1.3) mg/dL AST (17-59) IU/L ALT (<50) IU/L Alkaline Phosphatase (38-126) U/L Total Creatine Kinase (55-170) U/L CK-MB (CK-2) CK-MB (CK-2) Rel Index Troponin I (0.01-0.034) ng/mL Total Protein (6.3-8.2) g/dL Albumin (3.5-5.0) g/dL Globulin (1.7-4.1) g/dL Albumin/Globulin Ratio (1.0-2.8) Lipase (23-300) U/L Urine Color Yellow Urine Appearance Clear Urine pH 6.5 (4.5-8.0) Ur Specific [place] 1.010 (1.000-1.035) Urine Protein Negative (Negative) Urine Glucose (UA) Negative (Negative) g/dL Urine Ketones Negative (NEGATIVE) Urine Occult Blood Negative (Negative) Urine Nitrate Negative (Negative) Urine Bilirubin Negative (NEGATIVE) Urine Urobilinogen 1.0 (0.2) E.U./dL Ur Leukocyte Esterase Negative (NEGATIVE) Urine RBC None seen (0-5/HPF) Urine WBC None seen (0-5/HPF) Ur Squamous Epith Cells None seen (0-5/HPF) Urine Bacteria None seen (None) Ur Culture Indicated? Cult not indicated Urine Dip Bedside Urine Glucose Negative Bedside Urine Bilirubin - Negative Bedside Urine Ketone - Negative Urine Specific [place] 1.010 Bedside Urine Occult Blood - Negative Bedside Urine pH 6.0 Bedside Urine Protein - Negative Bedside Urine Urobilinogen - Negative Bedside Urine Nitrite - Negative Bedside Urine Leukocytes - Negative Esterase Imaging Data Chest x-ray: Radiologist's Impression: [address] [address] XRay Report Signed Patient: Kirti Be MR#: [id number] : 1940 Acct:[id number] Age/Sex: 82 / M Date of Service: 02/10/23 Loc: ED Accession Number: [id number] ?? Procedure: XR chest 1V Ordering Provider: Som Whitt MD PROCEDURE:? XR CHEST 1V ? INDICATIONS:? chest pain ? TECHNIQUE:? One view of the chest was acquired.? ? COMPARISON:? [facility], , XR CHEST 1V, 01/01/2023, 11:17. ? FINDINGS:? ? Surgical changes and devices:? None.? ? Lungs and pleura:? Lungs are clear.? No pleural effusions or pneumothorax.? ? Mediastinum:? Mediastinal contours appear normal.? Heart size is normal.? ? Bones and chest wall:? No suspicious bony lesions.? Overlying soft tissues appear unremarkable.? ? IMPRESSION:? No acute cardiopulmonary pathology. ? ? Dictated by: Jamal Laird M.D. on 02/10/2023 at 11:37 ? ? Approved by: Jamal Laird M.D. on 02/10/2023 at 11:37 ? CTA - brain/neck: Radiologist's Impression: [address] [address] [address] Scan Report Signed Patient: Kirti Be MR#: [id number] : 1940 Acct:[id number] Age/Sex: 82 / M Date of Service: 02/10/23 Loc: ED Accession Number: [id number] ?? Procedure: CT angio head and neck Ordering Provider: Som Whitt MD PROCEDURE:? CT ANGIO HEAD AND NECK ? INDICATIONS:? Syncope ? TECHNIQUE:? Pre-contrast 4.5 mm thick sections acquired from the foramen magnum to the vertex.? After the administration of intravenous contrast, 1 mm thick sections acquired from the aortic arch through the [place].? Post-contrast 4.5 mm thick sections then re- acquired from the foramen magnum to the vertex.? MIP reformats of the arterial vasculature were utilized.? For radiation dose reduction, the following was used:? automated exposure control, adjustment of mA and/or kV according to patient size.? ? COMPARISON:? None. ? FINDINGS: ? Noncontrast CT Brain: ? Cerebrum, cerebellum and brainstem:? Mild atrophy and white matter chronic ischemic change.? No intracranial hemorrhage? Wood-white distinction is well preserved throughout the exam. ? Ventricles:? Appropriate size and position.? No evidence of hydrocephalus. ? Skull base:? The bony sella, pituitary gland and infundibulum are unremarkable.? Posterior fossa and cerebellum are unremarkable. Visualized portions of the external auditory canals and tympanic cavity are within normal limits. ? Calvarium and Scalp:? No scalp soft tissue swelling.? The underlying calvarium is intact without skull fracture or lytic lesion. ? Paranasal Sinuses:? Unremarkable as visualized.? No acute sinusitis. Mastoids:? Unremarkable as visualized.? No mastoid effusion. ? Cerebral CT Angiogram: ? Internal carotid arteries:? Moderate atherosclerotic vascular calcification involves the cavernous segments of both internal carotid arteries without significant stenosis ? Anterior cerebral arteries:? Unremarkable.? No significant stenosis.? No occlusion.? No aneurysm. ? Middle cerebral arteries:? Unremarkable.? No significant stenosis.? No occlusion.? No aneurysm. ? Posterior cerebral arteries:? Unremarkable.? No significant stenosis.? No occlusion.? No aneurysm. ? Basilar artery:? 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 Vertebral arteries:? Unremarkable.? No significant stenosis.? No dissection or occlusion. ? Dural venous sinuses:? Unremarkable given phase of enhancement. Other: Arterial phase brain parenchyma unremarkable. ? Neck CT Angiogram: ? Internal carotid arteries:? Atherosclerotic calcification both proximal internal carotid arteries present without significant stenosis ? Common carotid arteries:? Unremarkable.? No significant stenosis.? No dissection or occlusion. ? External carotid arteries:? Unremarkable.? No occlusion. ? Vertebral arteries:? Unremarkable.? No significant stenosis.? No dissection or occlusion. ? Aortic arch and mediastinum: Unremarkable. Other:? Arterial phase neck soft tissue within normal limits.? Both lung apices are clear.? Degenerative disc disease and arthropathy noted in the cervical spine ? IMPRESSION: ? 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 ? 2. ICA atherosclerotic calcification without hemodynamically significant stenosis.? No evidence of aneurysm, large branch occlusion or vascular malformation.? ? ? Note: Any reported proximal ICA stenosis was calculated using NASCET guidelines.? Approved by: Neno Nugent M.D. on 02/10/2023 at 12:46? MRI brain: Radiologist's Impression: [place] [address] Magnetic Resonance Report Signed Patient: Kirti Be MR#: [id number] : 1940 Acct:[id number] Age/Sex: 82 / M Date of Service: 02/10/23 Loc: ED Accession Number: [id number] ?? Procedure: MR head/brain wo con Ordering Provider: Som Whitt MD PROCEDURE:? MR HEAD/BRAIN WO CON ? INDICATIONS:? syncope/possible stroke ? TECHNIQUE:? Noncontrast axial T1 spin echo, axial T2 fast spin echo, sagittal and axial FLAIR, coronal T2 fast spin echo, axial gradient echo, axial diffusion and ADC through the brain.? ? COMPARISON:? None. ? FINDINGS:? Image quality:? Excellent.? ? CSF Spaces:? Basal cisterns are patent.? No extra-axial fluid collections.? Ventricles are normal in size and shape.? ? Brain:? No intracranial masses or hemorrhage.? Wood/white matter interface is normal.? Brainstem appears normal.? Diffusion-weighted images demonstrate no acute ischemic insult.? No chronic ischemic insults.? Normal intravascular flow voids are present.? ? Mild atrophy and white matter chronic ischemic change noted. ? Skull and face:? Calvarium has normal marrow signal.? Orbits appear normal.? ? Sinuses:? Sinuses and mastoids are clear.? ? IMPRESSION:? ? ? Mild atrophy and white matter chronic ischemic change without intracranial infarct, hemorrhage or mass lesion ? ? Approved by: Neno Nugent M.D. on 02/10/2023 at 14:09? Echocardiogram: Radiologist's Impression: [address] [address] Echocardiography Report Signed Patient: Kirti Be MR#: [id number] : 1940 Acct:[id number] Age/Sex: 82 / M Date of Service: 02/10/23 Loc: ED Accession Number: [id number] ?? Procedure: EC echo doppler complete Ordering Provider: Som Whitt MD ? [facility] +[facility] : ? :? [address] ? : ? : : ? :? [place], [place] ? : ? : : ? :? [id number] ? : ? : : ? : ? Phone: [phone] : ? : [phone]? [phone]? +---------+ ? Echocardiogram Report + + :Name: KIRTI BE ? ? Study Date: 02/10/2023 ? Height: 68 in? : :[facility] ? ? ReadingLocation: ? Weight: 150 lb : : ? Gender: Male ? BSA: 1.8 m2? ? : :: 1940? Age: 82 yrs? BP: 129/65 mmHg: :Reason For Study: SYNCOPE? : :Ordering Physician: PERI,? : :SOM? Performed By: Gisselle Donaldson? : :Referring: SOM WHITT ? : + + Interpretation Summary Normal sinus rhythm. Normal LV size and wall thickness. Normal wall motion and LV systolic function. Ejection fraction 60-65%. Stage I diastolic dysfunction. ? Borderline LA enlargement; otherwise normal chamber sizes. Aortic sclerosis without stenosis. Otherwise no significant valvular abnormalities. ? Ascending aorta measuring 3.8 cm in diameter (is at the upper limit of normal range). No prior study available for comparison. ? Procedure: ? A two-dimensional transthoracic echocardiogram with color flow and Doppler was performed. The study quality was technically adequate. There is no prior echocardiogram noted for this patient. The patient was in sinus rhythm with heart rates between 56-66 bpm during the exam. Left Ventricle: ? The left ventricle is normal in size and wall thickness. The ejection fraction is estimated to be 60-65%. Right Ventricle: ? The right ventricle is normal in size and function. Atria: ? The left atrium is borderline dilated. Right atrial size is normal. There is no Doppler evidence for an interatrial shunt. Mitral Valve: ? The mitral valve is normal in structure and function. There is mild mitral regurgitation. Aortic Valve: ? The aortic valve is mildly calcified. There is no aortic valve stenosis. No aortic regurgitation is present. Tricuspid Valve: ? The tricuspid valve is normal in structure and function. There is mild tricuspid regurgitation. The right ventricular systolic pressure is estimated to be at least 41 mmHg based on an estimated right atrial pressure of 3 mm Hg. Pulmonic Valve: ? The pulmonic valve leaflets are thin and pliable; valve motion is normal. There is no pulmonic valvular regurgitation. Great Vessels: ? The aortic root is normal size. The ascending aorta is at the upper limits of normal in size. The IVC is of normal diameter and collapses greater than 50% with a sniff. This suggests a low right atrial pressure of 3 mm Hg. Pericardium/ Pleura ? There is no pericardial effusion. There is no pleural effusion. ? MMode/2D Measurements & Calculations LVIDd: 4.6 cm ? LVOT diam: 2.0 cm LVIDs: 3.1 cm ? Ao root diam: 3.3 cm FS: 34.0 %? asc Aorta Diam: 3.8 cm EPSS: 0.80 cm IVSd: 0.93 cm LVPWd: 0.86 cm LV johnson. diameter/BSA (cm/m^2): 2.6 LV sys. diameter/BSA (cm/m^2): 1.7 ? LA A2 area: 21.8 cm2? RA long axis: 6.0 cm LA A4 area: 18.1 cm2? RA area: 19.9 cm2 LA length (vol): 5.2 cm ? RA vol: 56.0 ml LA vol: 63.9 ml ? RA : 31.0 ml/m2 LA vol index: 35.3 ml/m2? IVC diam: 1.1 cm ? RVD1 (basal): 3.4 cm RVD2 (mid): 2.7 cm TAPSE: 2.2 cm ? Doppler Measurements & Calculations Ao V2 max: 150.2 cm/sec ? LVOT Max Dc: 107.3 cm/sec Ao V2 mean: 104.9 cm/sec? LV V1 max P.6 mmHg Ao max P.0 mmHg ? LV V1 VTI: 24.8 cm Ao mean P.8 mmHg? RICHARD(I,D): 2.1 cm2 Ao V2 VTI: 35.9 cm? RICHARD(V,D): 2.2 cm2 ? sev ratio: 0.69 ? RICHARD indexed to BSA (cm^2/m^2): 1.2 ? MV E max dc: 98.2 cm/sec ? TR max dc: 309.9 cm/sec MV A max dc: 98.6 cm/sec ? TR max P.4 mmHg MV E/A: 1.00? PA V2 max: 80.9 cm/sec Med Peak E' Dc: 6.3 cm/sec ? ? ? PA V2 mean: 58.8 cm/sec E/E' med: 15.7? PA mean P.5 mmHg Lat Peak E' Dc: 8.8 cm/sec ? ? ? PA pr(Accel): 7.1 mmHg E/E' lat: 11.1 E/e' average: 13.4 MV dec time: 0.22 sec ? SV(LVOT): 75.0 ml ? Electronically signed by: Cinthya Santizo M.D. on Reading Physician:02/10/2023 01:35 PM MDM Narrative Medical decision making narrative: Patient here for syncopal/near syncopal episode. [facility] here from [facility]. Patient states he got up uses walker to go to the dining room for breakfast. Ate a good breakfast he states. Got up using his walker to head back to his room, he felt dizzy and weak and used his walker to lower himself to the ground. He thinks he may have passed out in if he did it was not very long. No seizure activity. Denies any pre event or post-event headache chest pain back pain abdominal pain. He does have history of Parkinson's and a stroke past. He states it does not feel like his Parkinson's that cause this morning event. Denies any slurred speech or facial droop. He has a resting tremor which is not new. He feels much better at this time. Denies any recent illness. Patient in no distress at this time After history and exam CBC CMP EKG troponin chest x-ray urinalysis CT angiogram head and neck/MRI brain MDM CC: Syncope Complicating co-morbidities: History of Parkinson's Data collected from: Patient Medical records reviewed: Patient seen here January 01, 2023 for dizziness. Differential considered: Includes but not limited to TIA stroke vasovagal syncope dehydration Exam documented above, pertinent findings include: Resting tremor Lab Test results independently reviewed as above. Pertinent findings: WBC 4.9 hemoglobin 10.7 hematocrit 32.5 INR 1.2 sodium 136 potassium 4.5 bicarb 27 BUN 25 creatinine 1.1 GFR greater than 60 calcium 7.6 AST 19 ALT 8 troponin less than 0.012 Independently reviewed EKG sinus rhythm rate [address] elevation or depression Imaging studies independently reviewed: Chest x-ray no acute process MRI brain no acute process CT angiogram head neck no acute process Echocardiogram ejection fraction 60 65% no significant valvular disease Consultations: 2:42 p.m.. Spoke with hospitalist, Dr. Dean. He would like patient to have orthostatics done. Treatments: Normal saline metoprolol Re-evaluations: 4:10 p.m.. Blood pressure noted. I reviewed results with patient. This time they are reassuring however source of his syncope fall weakness is different from the previous. He is considering not being admitted. I employed with him to be admitted. He is speaking with the son by phone now. We will reconvene and discussed disposition plans. 5:10 p.m.. Patient desires discharge home. He has met with the hospitalist Dr. Dean. They have agreed treatment plan and reasons why he has these episodes. Orthostatic hypotension leads to dizziness and syncope or near syncope. Return precautions reviewed with him. He desires discharge home. 4:20 p.m.. Spoke with patient and son. Son by phone. At this time they are indecisive about disposition home or being admitted. Patient now states that at the [facility] his blood pressure was 60/40 which would explain his near- syncope episode. He states he had some tingling to both hands and both feet prior to near-syncope/fallen down. 5:[address] Dean, hospitalist at seen patient and evaluated. At this time patient would like to be discharged home. Dr. Dean has expressed that this is likely due to his Parkinson's in that hypotension is not uncommon with him. There needs to be palliative care arrangements at the [facility]. Patient needs to be able to get up slowly to prevent orthostatic hypotension and near- syncope episodes. He is had multiple visits and complaints of dizziness in the past. At this time no indication to admit patient. Patient desires discharge home. Discussion: Appropriate for discharge home. Patient has had multiple episodes of dizziness and syncope in the past. Likely related to vasovagal episodes. Laboratory studies imaging are reassuring. Nontoxic at discharge. We have reviewed with patient and son as well. Return precautions reviewed. Careful mobility and getting up slowly reviewed with patient prevent these episodes. He desires discharge home Diagnosis: Near Syncope Discharge Plan Departure Patient Disposition: Home Clinical Impression: Postural dizziness with near syncope Instructions: DI for Orthostatic Hypotension Activity Restrictions/Additional Instructions: Your symptoms likely due to orthostatic hypotension. This may happen when you get up too quickly and blood pressure drops too low and you get dizzy and will either faint or feel nearly like fainting. Please get up slowly from seated or lying down positions. Please have your family doctor get referral for palliative care at home. If worse if any questions or concerns Prescriptions: No Action hydrocodone-acetaminophen [[place]] 5-325 mg tablet 1 tab PO Q4-6H PRN (Reason: pain) Qty: 7 0RF carbidopa-levodopa 48.75-195 mg Capsule, Extended Release 2 cap PO TID Patient Comments: Patient takes these doses at 0700, 1300 and 1800 Rx Instructions: divide evenly over waking hours latanoprost 0.005 % Drops 1 drp OPHTHALMIC (EYE) QPM Patient Comments: Patient normally takes this medication at 1999 atorvastatin 20 mg Tablet 20 mg PO QPM Rx Instructions: Patient normally takes this medication at 2000. alendronate 70 mg Tablet 70 mg PO QWEEK Patient Comments: Patient normally takes this medication on Mondays at 7am melatonin 3 mg Tablet 3 mg PO BEDTIME Patient Comments: Patient normally takes this medication at 1999 clopidogrel 75 mg Tablet 75 mg PO DAILY Patient Comments: Patient normally takes this medication at 1700. pantoprazole 20 mg Tablet,Delayed Release (Dr/Ec) 20 mg PO DAILY Patient Comments: Patient normally takes this medication at 0845. tamsulosin 0.4 mg Capsule 0.4 mg PO BEDTIME Patient Comments: Patient normally takes this medication at 2000. brimonidine 0.2 % Drops 1 drp EYE-BOTH BID Patient Comments: Patient normally takes this medication at 0800 & 1999. mecobalamin (vitamin B12) 1,000 mcg Tablet,Disintegrating 1,000 mcg SUBLINGUAL DAILY Patient Comments: Patient normally takes this medication at 0800 Rx Instructions: place tablet under tongue and allow to dissolve for at least30 secs before swallowing pimavanserin 34 mg Capsule 34 mg PO DAILY Patient Comments: Patient normally takes this medication at 1030. duloxetine 60 mg Capsule, Delayed Rel Sprinkle 60 mg PO DAILY Patient Comments: Patient normally takes this medication at 1700. carbidopa-levodopa 48.75-195 mg Capsule, Extended Release 1 cap PO BID Patient Comments: Patient takes this dose at 1000, 2000 Rx Instructions: divide evenly over waking hours metoprolol succinate 25 mg Tablet Extended Release 24 Hr 25 mg PO BID Patient Comments: Patient normally takes this medication at 0800 & 1700 quetiapine 25 mg Tablet 25 mg PO BID Patient Comments: Patient normally takes this medication at 0800 & 2000 timolol maleate 0.5 % Drops 1 drp OPHTHALMIC (EYE) BID Patient Comments: Patient has this administered at 0700 and 2000 gabapentin 600 mg Tablet 600 mg PO TID Patient Comments: Patient normally takes this medication at Rx Instructions: Patient takes this medication at 0700, 1330 and 1999 pramipexole 1.5 mg Tablet 1.5 mg PO TID Rx Instructions: Patient takes this medication 0700, 1330 and 2000. Referrals: Lila Pang ARNP [Primary Care Provider] - Stand Alone Forms: Patient Portal/API
--- NOTE | 2023-02-10 11:55 | DI.CT.S_ITS ---
PROCEDURE: CT ANGIO HEAD AND NECK INDICATIONS: Syncope TECHNIQUE: Pre-contrast 4.5 mm thick sections acquired from the foramen magnum to the vertex. After the administration of intravenous contrast, 1 mm thick sections acquired from the aortic arch through the [place] of [place]. Post-contrast 4.5 mm thick sections then re-acquired from the foramen magnum to the vertex. MIP reformats of the arterial vasculature were utilized. For radiation dose reduction, the following was used: automated exposure control, adjustment of mA and/or kV according to patient size. COMPARISON: None. FINDINGS: Noncontrast CT Brain: Cerebrum, cerebellum and brainstem: Mild atrophy and white matter chronic ischemic change. No intracranial hemorrhage Wood-white distinction is well preserved throughout the exam. Ventricles: Appropriate size and position. No evidence of hydrocephalus. Skull base: The bony sella, pituitary gland and infundibulum are unremarkable. Posterior fossa and cerebellum are unremarkable. Visualized portions of the external auditory canals and tympanic cavity are within normal limits. Calvarium and Scalp: No scalp soft tissue swelling. The underlying calvarium is intact without skull fracture or lytic lesion. Paranasal Sinuses: Unremarkable as visualized. No acute sinusitis. Mastoids: Unremarkable as visualized. No mastoid effusion. Cerebral CT Angiogram: Internal carotid arteries: Moderate atherosclerotic vascular calcification involves the cavernous segments of both internal carotid arteries without significant stenosis Anterior cerebral arteries: Unremarkable. No significant stenosis. No occlusion. No aneurysm. Middle cerebral arteries: Unremarkable. No significant stenosis. No occlusion. No aneurysm. Posterior cerebral arteries: Unremarkable. No significant stenosis. No occlusion. No aneurysm. 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 No significant stenosis. No dissection or occlusion. Dural venous sinuses: Unremarkable given phase of enhancement. Other: Arterial phase brain parenchyma unremarkable. Neck CT Angiogram: Internal carotid arteries: Atherosclerotic calcification both proximal internal carotid arteries present without significant stenosis Common carotid arteries: Unremarkable. No significant stenosis. No dissection or occlusion. External carotid arteries: Unremarkable. No occlusion. Vertebral arteries: Unremarkable. No significant stenosis. No dissection or occlusion. Aortic arch and mediastinum: Unremarkable. Other: Arterial phase neck soft tissue within normal limits. Both lung apices are clear. Degenerative disc disease and arthropathy noted in the cervical spine IMPRESSION: 1. 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 2. ICA atherosclerotic calcification without hemodynamically significant stenosis. No evidence of aneurysm, large branch occlusion or vascular malformation. Note: Any reported proximal ICA stenosis was calculated using NASCET guidelines. Approved by: Neno Nugent M.D. on 02/10/2023 at 12:46
[2023-02-10 12:04] LABS: Appearance Urine UA CLEAR; Bilirubin Urine UA NEGATIVE (NEGATIVE); Color Urine UA YELLOW; Glucose Urine UA NEGATIVE (Negative); Ketones Urine UA NEGATIVE (NEGATIVE); Leukocyte Esterase Urine UA NEGATIVE (NEGATIVE); Nitrite Urine UA NEGATIVE (Negative); Occult Blood Urine UA NEGATIVE (Negative); Protein Urine UA NEGATIVE (Negative); pH Urine UA 6.5 (4.5-8.0)
[2023-02-10 12:10] LABS: Bacteria Urine None Seen; Culture Indicated Urine Cult Not Indicated; RBC Urine None Seen (0-5/HPF); Squamous Epithelial Cell Urine None Seen (0-5/HPF); WBC Urine None Seen (0-5/HPF)
[2023-02-10] MEDS: LACTATED RINGERS 500 ML 1000 ML IV (12:36)
[2023-02-10] MEDS: CARBIDOPA-LEVODOPA ER 50/200 TABLET 2 EACH PO (15:12)
[2023-02-10] MEDS: METOPROLOL ER 25 MG TABLET PO (16:15)
--- NOTE | 2023-02-10 17:12 | P.CONS_ITS ---
History of Present Illness Consult details Date Patient Seen: 02/10/23 Time Patient Seen: 17:12 Chief complaint: Weakness Narrative: 82 year old male with PMH of CVA, parkinson's disease for 16 years who presents with an episode of what sounds like hypotension. He was eating breakfast this morning, was in his usual state of health, when he got up he became dizzy and lightheaded. He did not passout, he felt weak and slowly fell to the ground but did not hit his head and has no complaints currently. He stated that he felt weak for around maybe twenty minutes. He denied chest pain or palpitations. He states he has a long running history of high and low blood pressures, he had previously been on blood pressure medications but had to stop them because of low blood pressures. He denies abdominal pain, dysuria, urinary frequency, focal numbness or weakness, slurred speech or tongue bite. He has had no recent fever, chills or cough. In the emergency room, EKG showed sinus bradycardia without evidence of ischemic changes. Lab and imaging evaluation was unremarkable, including CBC, chemistries, troponin, Echocardiogram, chest xray, and CT, CTA, and brain MRI. UA negative for infection. Medicine was asked to consult for possible admission. Given evaluation, however, patient's resolution of symptoms and no current orthostatic drop, patient can be safely discharged to shelter facility. Meds Home Medications and Allergies Home Medications Medication Instructions Recorded Confirmed Type hydrocodone 5 mg-acetaminophen 325 1 tab PO Q4-6H PRN pain #7 tabs 01/01/19 Rx mg tablet ([place]) alendronate 70 mg tablet 70 mg PO QWEEK 02/10/23 02/10/23 History atorvastatin 20 mg tablet 20 mg PO QPM 02/10/23 02/10/23 History brimonidine 0.2 % eye drops 1 drp EYE-BOTH BID 02/10/23 02/10/23 History carbidopa ER 48.75 mg-levodopa 195 1 cap PO BID 02/10/23 02/10/23 History mg capsule,extended release carbidopa ER 48.75 mg-levodopa 195 2 cap PO TID 02/10/23 02/10/23 History mg capsule,extended release clopidogrel 75 mg tablet 75 mg PO DAILY 02/10/23 02/10/23 History duloxetine 60 mg capsule,delayed 60 mg PO DAILY 02/10/23 02/10/23 History release sprinkle gabapentin 600 mg tablet 600 mg PO TID 02/10/23 02/10/23 History latanoprost 0.005 % eye drops 1 drp ophthalmic (eye) QPM 02/10/23 02/10/23 History mecobalamin (vitamin B12) 1,000 1,000 mcg sublingual DAILY 02/10/23 02/10/23 History mcg disintegrating tablet,sublingual melatonin 3 mg tablet 3 mg PO BEDTIME 02/10/23 02/10/23 History metoprolol succinate 25 mg 25 mg PO BID 02/10/23 02/10/23 History tablet,extended release 24 hr pantoprazole 20 mg tablet,delayed 20 mg PO DAILY 02/10/23 02/10/23 History release pimavanserin 34 mg capsule 34 mg PO DAILY 02/10/23 02/10/23 History pramipexole 1.5 mg tablet 1.5 mg PO TID 02/10/23 02/10/23 History quetiapine 25 mg tablet 25 mg PO BID 02/10/23 02/10/23 History tamsulosin 0.4 mg capsule 0.4 mg PO BEDTIME 02/10/23 02/10/23 History timolol maleate 0.5 % eye drops 1 drp ophthalmic (eye) BID 02/10/23 02/10/23 History Allergies Allergy/AdvReac Type Severity Reaction Status Date / Time azithromycin Allergy Verified 02/10/23 10:44 haloperidol [From Haldol] Allergy Verified 02/10/23 10:44 Review of Systems Review of Systems Narrative: All other systems reviewed with the patient and are negative unless otherwise stated. Exam Vital Signs (past 8 hours): - 02/10/23 10:08 02/10/23 10:42 02/10/23 10:43 Temperature 97.6 F Pulse Rate 64 63 63 Pulse Rate [Orthostatic Lying] Pulse Rate [Orthostatic Sitting] Pulse Rate [Orthostatic Standing] Respiratory Rate 15 Blood Pressure 116/70 Blood Pressure [Orthostatic Lying] Blood Pressure [Orthostatic Sitting] Blood Pressure [Orthostatic Standing] Pulse Oximetry 95 95 96 Oxygen Delivery Method Room Air 02/10/23 10:43 02/10/23 11:00 02/10/23 11:00 Temperature Pulse Rate Pulse Rate [Orthostatic Lying] Pulse Rate [Orthostatic Sitting] Pulse Rate [Orthostatic Standing] Respiratory Rate 20 Blood Pressure 116/70 125/61 Blood Pressure [Orthostatic Lying] Blood Pressure [Orthostatic Sitting] Blood Pressure [Orthostatic Standing] Pulse Oximetry 95 Oxygen Delivery Method 02/10/23 11:11 02/10/23 11:11 02/10/23 11:24 Temperature Pulse Rate 65 57 L Pulse Rate [Orthostatic Lying] Pulse Rate [Orthostatic Sitting] Pulse Rate [Orthostatic Standing] Respiratory Rate 20 Blood Pressure 129/65 Blood Pressure [Orthostatic Lying] Blood Pressure [Orthostatic Sitting] Blood Pressure [Orthostatic Standing] Pulse Oximetry 95 94 Oxygen Delivery Method 02/10/23 11:24 02/10/23 11:30 02/10/23 11:31 Temperature Pulse Rate 55 L Pulse Rate [Orthostatic Lying] Pulse Rate [Orthostatic Sitting] Pulse Rate [Orthostatic Standing] Respiratory Rate Blood Pressure 114/79 Blood Pressure [Orthostatic Lying] Blood Pressure [Orthostatic Sitting] Blood Pressure [Orthostatic Standing] Pulse Oximetry 96 96 Oxygen Delivery Method 02/10/23 11:31 02/10/23 12:00 02/10/23 12:13 Temperature Pulse Rate 60 59 L Pulse Rate [Orthostatic Lying] Pulse Rate [Orthostatic Sitting] Pulse Rate [Orthostatic Standing] Respiratory Rate 13 19 Blood Pressure 137/64 Blood Pressure [Orthostatic Lying] Blood Pressure [Orthostatic Sitting] Blood Pressure [Orthostatic Standing] Pulse Oximetry 99 99 Oxygen Delivery Method 02/10/23 12:13 02/10/23 12:20 02/10/23 12:20 Temperature Pulse Rate 66 Pulse Rate [Orthostatic Lying] Pulse Rate [Orthostatic Sitting] Pulse Rate [Orthostatic Standing] Respiratory Rate Blood Pressure 167/75 H 164/81 H Blood Pressure [Orthostatic Lying] Blood Pressure [Orthostatic Sitting] Blood Pressure [Orthostatic Standing] Pulse Oximetry 99 Oxygen Delivery Method 02/10/23 12:30 02/10/23 12:30 02/10/23 12:40 Temperature Pulse Rate 63 57 L Pulse Rate [Orthostatic Lying] Pulse Rate [Orthostatic Sitting] Pulse Rate [Orthostatic Standing] Respiratory Rate 23 Blood Pressure 172/83 H Blood Pressure [Orthostatic Lying] Blood Pressure [Orthostatic Sitting] Blood Pressure [Orthostatic Standing] Pulse Oximetry 99 98 Oxygen Delivery Method 02/10/23 12:40 02/10/23 13:00 02/10/23 13:00 Temperature Pulse Rate 48 L Pulse Rate [Orthostatic Lying] Pulse Rate [Orthostatic Sitting] Pulse Rate [Orthostatic Standing] Respiratory Rate 25 H Blood Pressure 166/82 H 187/86 H Blood Pressure [Orthostatic Lying] Blood Pressure [Orthostatic Sitting] Blood Pressure [Orthostatic Standing] Pulse Oximetry 99 Oxygen Delivery Method 02/10/23 13:11 02/10/23 13:11 02/10/23 13:20 Temperature Pulse Rate 46 L 55 L Pulse Rate [Orthostatic Lying] Pulse Rate [Orthostatic Sitting] Pulse Rate [Orthostatic Standing] Respiratory Rate 25 H Blood Pressure 169/74 H Blood Pressure [Orthostatic Lying] Blood Pressure [Orthostatic Sitting] Blood Pressure [Orthostatic Standing] Pulse Oximetry 98 99 Oxygen Delivery Method 02/10/23 13:20 02/10/23 13:30 02/10/23 13:30 Temperature Pulse Rate 60 Pulse Rate [Orthostatic Lying] Pulse Rate [Orthostatic Sitting] Pulse Rate [Orthostatic Standing] Respiratory Rate Blood Pressure 184/82 H 183/90 H Blood Pressure [Orthostatic Lying] Blood Pressure [Orthostatic Sitting] Blood Pressure [Orthostatic Standing] Pulse Oximetry 99 Oxygen Delivery Method 02/10/23 13:40 02/10/23 13:40 02/10/23 13:50 Temperature Pulse Rate 45 L Pulse Rate [Orthostatic Lying] Pulse Rate [Orthostatic Sitting] Pulse Rate [Orthostatic Standing] Respiratory Rate 27 H 23 Blood Pressure 168/86 H Blood Pressure [Orthostatic Lying] Blood Pressure [Orthostatic Sitting] Blood Pressure [Orthostatic Standing] Pulse Oximetry 98 98 Oxygen Delivery Method 02/10/23 13:50 02/10/23 14:00 02/10/23 14:00 Temperature Pulse Rate 55 L Pulse Rate [Orthostatic Lying] Pulse Rate [Orthostatic Sitting] Pulse Rate [Orthostatic Standing] Respiratory Rate Blood Pressure 167/82 H 186/88 H Blood Pressure [Orthostatic Lying] Blood Pressure [Orthostatic Sitting] Blood Pressure [Orthostatic Standing] Pulse Oximetry 99 Oxygen Delivery Method 02/10/23 15:12 02/10/23 15:16 02/10/23 15:16 Temperature Pulse Rate 52 L 51 L Pulse Rate [Orthostatic Lying] Pulse Rate [Orthostatic Sitting] Pulse Rate [Orthostatic Standing] Respiratory Rate 22 Blood Pressure 208/91 H Blood Pressure [Orthostatic Lying] Blood Pressure [Orthostatic Sitting] Blood Pressure [Orthostatic Standing] Pulse Oximetry 98 99 Oxygen Delivery Method 02/10/23 15:20 02/10/23 15:20 02/10/23 15:30 Temperature Pulse Rate 49 L Pulse Rate [Orthostatic Lying] Pulse Rate [Orthostatic Sitting] Pulse Rate [Orthostatic Standing] Respiratory Rate Blood Pressure 203/95 H 201/93 H Blood Pressure [Orthostatic Lying] Blood Pressure [Orthostatic Sitting] Blood Pressure [Orthostatic Standing] Pulse Oximetry 100 Oxygen Delivery Method 02/10/23 15:30 02/10/23 15:48 02/10/23 15:40 Temperature Pulse Rate 47 L 56 L Pulse Rate [Orthostatic Lying] 51 L Pulse Rate [Orthostatic Sitting] 46 L Pulse Rate [Orthostatic Standing] 70 Respiratory Rate Blood Pressure Blood Pressure [Orthostatic Lying] 195/82 H Blood Pressure [Orthostatic Sitting] 204/94 H Blood Pressure [Orthostatic Standing] 199/94 H Pulse Oximetry 99 99 Oxygen Delivery Method 02/10/23 15:40 02/10/23 15:42 02/10/23 15:42 Temperature Pulse Rate 47 L Pulse Rate [Orthostatic Lying] Pulse Rate [Orthostatic Sitting] Pulse Rate [Orthostatic Standing] Respiratory Rate Blood Pressure 195/82 H 204/94 H Blood Pressure [Orthostatic Lying] Blood Pressure [Orthostatic Sitting] Blood Pressure [Orthostatic Standing] Pulse Oximetry 99 Oxygen Delivery Method 02/10/23 15:45 02/10/23 15:45 02/10/23 15:50 Temperature Pulse Rate 70 Pulse Rate [Orthostatic Lying] Pulse Rate [Orthostatic Sitting] Pulse Rate [Orthostatic Standing] Respiratory Rate Blood Pressure 199/94 H 196/86 H Blood Pressure [Orthostatic Lying] Blood Pressure [Orthostatic Sitting] Blood Pressure [Orthostatic Standing] Pulse Oximetry 99 Oxygen Delivery Method 02/10/23 15:50 02/10/23 16:00 02/10/23 16:00 Temperature Pulse Rate 53 L 59 L Pulse Rate [Orthostatic Lying] Pulse Rate [Orthostatic Sitting] Pulse Rate [Orthostatic Standing] Respiratory Rate Blood Pressure 176/117 H Blood Pressure [Orthostatic Lying] Blood Pressure [Orthostatic Sitting] Blood Pressure [Orthostatic Standing] Pulse Oximetry 100 98 Oxygen Delivery Method 02/10/23 16:15 02/10/23 17:01 Temperature Pulse Rate 60 75 Pulse Rate [Orthostatic Lying] Pulse Rate [Orthostatic Sitting] Pulse Rate [Orthostatic Standing] Respiratory Rate Blood Pressure 189/88 H 154/86 H Blood Pressure [Orthostatic Lying] Blood Pressure [Orthostatic Sitting] Blood Pressure [Orthostatic Standing] Pulse Oximetry Oxygen Delivery Method Oxygen Delivery Method Room Air Narrative Exam Narrative: General:? Patient is well developed and well nourished, in no distress at this time. HEENT:? Normocephalic, atraumatic, extraocular muscles intact, oral pharynx is clear and mucous membranes are moist. Neck: supple and symmetric, trachea is midline, no cervical adenopathy. Negative for JVD Chest:? Normal AP diameter and contour without kyphoscoliosis, no tachypnea, equal chest rise bilaterally. Lungs:? CTA b/l no wheezing rhonchi or rales. Cardio:?RRR no m/r/g. Abdomen: S NT ND. Musculoskeletal:? Muscle strength and tone are equal within normal limits, no deformity. Extremities: No edema or joint effusions. No cyanosis or clubbing. Skin:? Pale,? Warm to touch,dry and intact without rashes, ulcerations or petechiae.? Neuro:? Alert and orientated,? sensation to touch intact in all extremities, no gross deficits noted of cranial nerves. constant jerky movements, seemingly unvoluntary. Psych:? Patient has a well-kept appearance, appropriate affect, mental status attitude thought context and judgment are appropriate for age. Objective ECG Impression: Sinus bradycardia with sinus arrhythmia without evidence of acute ischemia as interpreted by me Labs 02/10/23 10:43 02/10/23 10:43 Labs: Laboratory Results - last 24 hr 02/10/23 02/10/23 02/10/23 10:43 10:43 10:43 WBC 4.9 RBC 3.56 L Hgb 10.7 L Hct 32.5 L MCV 91.6 MCH 30.1 MCHC 32.9 RDW 14.7 Plt Count 161 Neut % (Auto) 56.1 Lymph % (Auto) 32.1 Clark % (Auto) 9.4 Eos % (Auto) 1.6 L Baso % (Auto) 0.8 Neut # (Auto) 2700 Lymph # (Auto) 1600 Clark # (Auto) 500 Eos # (Auto) 100 Baso # (Auto) 0 PT 13.3 H INR 1.2 APTT 28 Sodium 136 L Potassium 4.5 Chloride 107 Carbon Dioxide 27 BUN 25 H Creatinine 1.10 Estimated GFR > 60 BUN/Creatinine Ratio 22.7 H Glucose 83 Calcium 7.6 L Magnesium 2.1 Total Bilirubin 0.9 AST 19 ALT 8 Alkaline Phosphatase 63 Total Creatine Kinase 89 CK-MB (CK-2) TNP CK-MB (CK-2) Rel Index TNP Troponin I < 0.012 Total Protein 5.4 L Albumin 3.1 L Globulin 2.3 Albumin/Globulin Ratio 1.3 Lipase 49 Urine Color Urine Appearance Urine pH Ur Specific [place] Urine Protein Urine Glucose (UA) Urine Ketones Urine Occult Blood Urine Nitrate Urine Bilirubin Urine Urobilinogen Ur Leukocyte Esterase Urine RBC Urine WBC Ur Squamous Epith Cells Urine Bacteria Ur Culture Indicated? 02/10/23 11:45 WBC RBC Hgb Hct MCV MCH MCHC RDW Plt Count Neut % (Auto) Lymph % (Auto) [place] % (Auto) Eos % (Auto) Baso % (Auto) Neut # (Auto) Lymph # (Auto) [place] # (Auto) Eos # (Auto) Baso # (Auto) PT INR APTT Sodium Potassium Chloride Carbon Dioxide BUN Creatinine Estimated GFR BUN/Creatinine Ratio Glucose Calcium Magnesium Total Bilirubin AST ALT Alkaline Phosphatase Total Creatine Kinase CK-MB (CK-2) CK-MB (CK-2) Rel Index Troponin I Total Protein Albumin Globulin Albumin/Globulin Ratio Lipase Urine Color Yellow Urine Appearance Clear Urine pH 6.5 Ur Specific [place] 1.010 Urine Protein Negative Urine Glucose (UA) Negative Urine Ketones Negative Urine Occult Blood Negative Urine Nitrate Negative Urine Bilirubin Negative Urine Urobilinogen 1.0 Ur Leukocyte Esterase Negative Urine RBC None seen Urine WBC None seen Ur Squamous Epith Cells None seen Urine Bacteria None seen Ur Culture Indicated? Cult not indicated [facility] Medical History CVA (cerebral vascular accident) Parkinsons disease Social History lives independently: Yes Tobacco & Substance Use Smoking Status: Never smoker Assessment & Plan Assessment & Plan narrative: This is an 82-year-old male with a past medical history of prior CVA and Parkinson's who presented with what appeared to be an episode of presyncope or hypotension. He was in the emergency room recently with similar symptoms about a month ago and the patient reports a constant history of high and low blood pressures in the past, a common finding in Parkinson's. I suspect his symptoms were related to orthostatic hypotension, though with his labile blood pressures from marked hypotension to marked hypertension, and current resolution of symptoms I do not recommend midodrine therapy which the patient has already stopped as an outpatient. He had an unremarkable workup including echocardiogram essentially ruled out concern for central or cardiogenic cause at this time. He unfortunately is in a difficult place with regards to his blood pressure as echo did show diastolic dysfunction likely due to his elevated BP. He does have signs of progression of his parkinsonism, and perhaps a long-term benefit for the patient may be an outpatient consultation with palliative Care for pain control and symptom management and for further goals of care discussion as his Parkinson's disease progresses. He should take generic precautions with orthostasis, including sudden movements, getting up slowly from lying to sitting to standing. Patient is safe to return to assisted living at this time, and th ere are no apparent life threatining etiologies after extensive evaluation to warrant observation admission at this time. Diagnoses: 1. Orthostatic hypotension in the setting of Parkinson's disease 2. Prior CVA 3. Chronic diastolic heart failure (noted on echocardiogram) Additional history was obtained via patient's outpatient records, prior ER visits, and discussion with the ER provider. Discussed plan with ER provider and patient. Code: DNR, surrogate is patient's son I have utilized all available immediate resources to obtain, update, or review the patient's current medications.
== END 2023-02-10 17:27 | disposition home or self-care (01) ==
PROVIDERS: Emergency Provider Emergency Medicine; PCP Nurse Practitioner Gerontology
DX: I95.1 Orthostatic hypotension (principal); R42 Dizziness and giddiness; Z86.73 Personal history of transient ischemic attack (TIA), and cerebral infarction without residual deficits; R00.1 Bradycardia, unspecified
CPT/HCPCS: 70496; 70498; 70551; 71045; 80053; 81001; 81003; 82550; 83690; 83735; 84484; 85025; 85610; 85730; 93005; 93010; 93306; 99284; 99285; Q9967

== ENCOUNTER 2023-02-22 18:55 | Emergency (ER) | payer OTHER, SELFPAY ==
[2023-02-22] VITALS (23 sets, daily range): BP systolic 186–231; BP diastolic 92–109; PULSE 64–94; RESP 16–78; TEMP 36.6; O2SAT 96–99; BMI 22.8
[2023-02-22 20:28] LABS: Add Manual Diff / Slide Review NO; Basophils Absolute Auto 100 /uL (0-100); Basophils Percent Auto 0.8 % (0-2); Eosinophils Absolute Auto 100 /uL (0-450); Hematocrit 39.1 % (41-53); Lymphocytes Absolute Auto 1500 /uL (1100-4500); Lymphocytes Percent Auto 23.3 % (25-40); Mean Corpuscular HGB Conc 33.2 % (30-36); Mean Corpuscular Hemoglobin 30.4 PG (26-34); Mean Corpuscular Volume 91.7 fL (80-100); Monocytes Absolute Auto 500 /uL (0-900); Monocytes Percent Auto 8.2 % (3-14); Neutrophils Absolute Auto 4300 /uL (1500-7000); Neutrophils Percent Auto 66.7 % (50-75); Platelet Count 172 X10^3/uL (150-400); Red Blood Cell Count 4.27 X10^6/uL (4.5-5.9); Red Cell Distribution Width 15.2 % (11.6-14.8); White Blood Cell Count 6.5 X10^3/uL (4.5-11.0)
[2023-02-22 20:34] LABS: Alanine Aminotransferase 7 IU/L (<50); Albumin Globulin Ratio 1.4 (1.0-2.8); Alkaline Phosphatase 115 U/L (38-126); Aspartate Aminotransferase 25 IU/L (17-59); BUN Creatinine Ratio 24.7 (6-22); Bilirubin Total 0.9 mg/dL (0.2-1.3); Blood Urea Nitrogen 21 mg/dL (9-20); Calcium 9.1 mg/dL (8.4-10.2); Carbon Dioxide 29 mmol/L (22-32); Chloride 103 mmol/L (98-107); Estimated Glomerular Filt Rate > 60 mL/min (>60); Globulin 2.8 g/dL (1.7-4.1); Glucose 100 mg/dL (80-110); HEMOLYSIS < 15 (0-50); Lipase 40 U/L (23-300); Potassium 4.2 mmol/L (3.4-5.1); Sodium 138 mmol/L (137-145); Total Protein 6.8 g/dL (6.3-8.2)
[2023-02-22 21:51] LABS: Bacteria Urine None Seen; Culture Indicated Urine Cult Not Indicated; RBC Urine None Seen (0-5/HPF); Squamous Epithelial Cell Urine 0-1 /HPF (0-5/HPF); Urine Comments Microscopic Normal; WBC Urine None Seen (0-5/HPF)
--- NOTE | 2023-02-22 22:01 | DI.CT.S_ITS ---
PROCEDURE: CT ABDOMEN PELVIS W CON INDICATIONS: abdominal pain TECHNIQUE: After the administration of IV contrast, axial sections were acquired from the lung bases to the pubic symphysis. Coronal and sagittal reformats were performed. For radiation dose reduction, the following was used: automated exposure control, adjustment of mA and/or kV according to patient size. COMPARISON: [facility], CT, CT ABDOMEN PELVIS W CON, 01/01/2023, 12:26. FINDINGS: Image quality: There is metallic streak artifact from external devices and wires limiting evaluation as well as streak artifact from patient's surgical hardware in the spine. Lung bases: There is minimal dependent atelectasis. Heart: Heart is normal in size. ABDOMEN: Liver: No mass lesion. Gallbladder: Within normal limits without calcified gallstones. Biliary ducts: No biliary ductal dilatation. Pancreas: There is a small hypoattenuating lesion within the uncinate process measuring up to 1.0 cm on series 2, image 26 suggestive of a small cystic lesion. The pancreatic duct is mildly distended, measuring up to 0.4 cm. No discrete mass visualized. Findings are similar to the prior study. Spleen: Normal in size. Adrenal Glands: No adrenal nodules. Kidneys and Ureters: No hydronephrosis. Stomach and Bowel: Stomach, small bowel loops, and colon are normal in caliber and wall thickness. The appendix is normal. Peritoneum: No abnormal intraperitoneal fluid. No free air. Ventral Wall: No hernia. Abdominal Nodes: No retroperitoneal or mesenteric adenopathy by size criteria. Vessels: Aorta and inferior vena cava are normal in size. PELVIS: Pelvic Organs: Unremarkable. Bladder: Unremarkable. Pelvic Nodes: No enlarged lymph nodes. Miscellaneous: There is a small inguinal hernia with partial herniation of a small bowel loop. No associated bowel obstruction or strangulation. Bones: Extensive postsurgical changes are redemonstrated within the lumbar spine. Visualized osseous structures demonstrate no suspicious focal lesions. IMPRESSION: 1. No definite acute intra-abdominal abnormality. 2. 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 3. Mild dilatation of the pancreatic duct redemonstrated. The findings are similar to the prior study. Consider follow-up pancreatic protocol MRI for further evaluation to exclude a mass. Dictated by: Brenden Bruce M.D. on 02/22/2023 at 23:22 Approved by: Brenden Bruce M.D. on 02/22/2023 at 23:26
--- NOTE | 2023-02-22 22:02 | ED_ITS ---
HPI - Abdominal Pain General Chief Complaint: Abdominal Pain Stated Complaint: lower abd pain, kidney pain Time Seen by Provider: 02/22/23 21:18 Source: patient Mode of arrival: Ambulatory History of Present Illness HPI narrative: Patient here with son. Patient just admitted here February 10, 2023 for dizziness. Patient was discharged home. No diagnosis of TIA or stroke. Patient complains of 3 weeks of daily abdominal pain that waxes and wanes and moves in different locations. History of bowel obstruction in the past with lysis of adhesions. Patient states this feels different. No urinary complaints other than has a hard time starting his urinary stream. Likely related to BPH. However patient denies any nausea or vomiting diarrhea or constipation. Patient states this problem was here/current even when he was admitted here for February 10 for dizziness. However he states it really was not that much of a problem until recently in the last few days. He does not recall last colonoscopy he is had. Patient in no distress. Blood pressure is noted. However son states blood pressure is very volatile and if blood pressure medication given can cause hypotension and cause dizziness. He is on blood pressure medication as needed. Denies any chest pain back pain or dizziness. Related Data Home Medications Medication Instructions Recorded Confirmed alendronate 70 mg tablet 70 mg PO QWEEK 02/10/23 02/10/23 atorvastatin 20 mg tablet 20 mg PO QPM 02/10/23 02/10/23 brimonidine 0.2 % eye drops 1 drp EYE-BOTH BID 02/10/23 02/10/23 carbidopa ER 48.75 mg-levodopa 195 1 cap PO BID 02/10/23 02/10/23 mg capsule,extended release carbidopa ER 48.75 mg-levodopa 195 2 cap PO TID 02/10/23 02/10/23 mg capsule,extended release clopidogrel 75 mg tablet 75 mg PO DAILY 02/10/23 02/10/23 duloxetine 60 mg capsule,delayed 60 mg PO DAILY 02/10/23 02/10/23 release sprinkle gabapentin 600 mg tablet 600 mg PO TID 02/10/23 02/10/23 latanoprost 0.005 % eye drops 1 drp ophthalmic (eye) QPM 02/10/23 02/10/23 mecobalamin (vitamin B12) 1,000 1,000 mcg sublingual DAILY 02/10/23 02/10/23 mcg disintegrating tablet,sublingual melatonin 3 mg tablet 3 mg PO BEDTIME 02/10/23 02/10/23 metoprolol succinate 25 mg 25 mg PO BID 02/10/23 02/10/23 tablet,extended release 24 hr pantoprazole 20 mg tablet,delayed 20 mg PO DAILY 02/10/23 02/10/23 release pimavanserin 34 mg capsule 34 mg PO DAILY 02/10/23 02/10/23 pramipexole 1.5 mg tablet 1.5 mg PO TID 02/10/23 02/10/23 quetiapine 25 mg tablet 25 mg PO BID 02/10/23 02/10/23 tamsulosin 0.4 mg capsule 0.4 mg PO BEDTIME 02/10/23 02/10/23 timolol maleate 0.5 % eye drops 1 drp ophthalmic (eye) BID 02/10/23 02/10/23 Previous Rx's Medication Instructions Recorded hydrocodone 5 mg-acetaminophen 325 1 tab PO Q4-6H PRN pain #7 tabs 01/01/19 mg tablet ([place]) Allergies Allergy/AdvReac Type Severity Reaction Status Date / Time azithromycin Allergy Verified 02/10/23 10:44 haloperidol [From Haldol] Allergy Verified 02/10/23 10:44 Review of Systems Review of Systems Narrative: GENERAL: negative chills, fatigue, malaise, fever, sweats. HEENT: negative sinus pain, ear pain, sore throat RESPIRATORY: negative dyspnea, cough CARDIOVASCULAR: negative chest pain, palpitations GASTROINTESTINAL: negative nausea, vomiting, positive abdominal pain : negative dysuria, frequency, hematuria MUSCULOSKELETAL: negative muscle or bony pain SKIN: negative rash, skin lesions NEUROLOGIC: negative weakness, numbness ROS Unobtainable: All systems reviewed & are unremarkable except as noted in HPI and below Patient History Medical History CVA (cerebral vascular accident) Parkinsons disease Social History lives independently: Yes Smoking Status: Never smoker Smoking Status: Never smoker Substance Use Type: does not use Exam Narrative Exam Narrative: GENERAL: in no distress, not toxic not dyspneic HEAD: Normocephalic. EYES: Pupils equal round ENT: Mucous membranes moist. NECK: Trachea midline. CARDIOVASCULAR: Regular rate and rhythm without murmurs RESPIRATORY: Clear to auscultation. Breath sounds equal bilaterally. No wheezes, rales, or rhonchi. GASTROINTESTINAL: Abdomen soft, non-tender, abdomen soft flat nontender no peritoneal signs no pain out of portion to exam. Bowel sounds are present. EXTREMITIES: No gross deformities. BACK: No flank tenderness. NEURO: AOx4. SKIN: Warm and dry PSYCH: Not anxious, is cooperative Initial Vital Signs Initial Vital Signs: Vital Signs Temperature 97.8 F 02/22/23 19:27 Pulse Rate 92 H 02/22/23 19:27 Respiratory Rate 16 02/22/23 19:27 Blood Pressure 216/102 H 02/22/23 19:27 Pulse Oximetry 98 02/22/23 19:27 Oxygen Delivery Method Room Air 02/22/23 19:27 Course Orders Ordered: ED Orders 02/22/23 19:51 EKG-12 Lead Stat 02/22/23 20:17 Complete Blood Count AUTO DIFF Stat Comprehensive Metabolic Panel Stat Lipase Stat 02/22/23 21:32 Urine Microscopic Stat 02/22/23 22:01 CT abdomen pelvis w con Stat Discontinued Medications Sodium Chloride (Normal Saline 0.9%) 500 mls @ 1,000 mls/hr IV BOLUS ONE Stop: 02/22/23 22:30 Last Infusion: 02/22/23 23:24 Dose: 0 mls/hr Documented By: Admin: 02/22/23 22:27 Dose: 1,000 mls/hr Documented By: LIBERTAD Lisinopril (Lisinopril 10 Mg Tablet) 10 mg PO NOW ONE Stop: 02/22/23 22:45 Last Admin: 02/22/23 23:19 Dose: 10 mg Documented By: LIBERTAD Ondansetron HCl (Ondansetron 4 Mg Odt) 4 mg PO NOW PRN PRN Reason: Nausea And Vomiting Ondansetron HCl (Ondansetron 4 Mg/2 Ml Inj) 4 mg IV NOW PRN PRN Reason: Nausea And Vomiting Vital Signs Vital signs: Vital Signs - 8 hr 02/22/23 19:27 02/22/23 20:22 02/22/23 20:22 Temperature 97.8 F Pulse Rate 92 H 80 Respiratory Rate 16 Blood Pressure 216/102 H 189/94 H Pulse Oximetry 98 98 Oxygen Delivery Method Room Air 02/22/23 20:23 02/22/23 20:23 02/22/23 20:30 Temperature Pulse Rate 78 80 Respiratory Rate 32 H Blood Pressure 186/98 H Pulse Oximetry 97 98 Oxygen Delivery Method Room Air 02/22/23 20:48 02/22/23 20:48 02/22/23 20:50 Temperature Pulse Rate 70 67 Respiratory Rate 55 H 48 H Blood Pressure 229/109 H Pulse Oximetry 99 99 Oxygen Delivery Method 02/22/23 20:50 02/22/23 21:00 02/22/23 21:00 Temperature Pulse Rate 72 Respiratory Rate 67 H Blood Pressure 219/98 H 207/99 H Pulse Oximetry 99 Oxygen Delivery Method 02/22/23 21:15 02/22/23 21:15 02/22/23 21:30 Temperature Pulse Rate 75 84 Respiratory Rate 61 H 78 H Blood Pressure 231/106 H Pulse Oximetry 99 Oxygen Delivery Method 02/22/23 21:36 02/22/23 21:36 02/22/23 21:45 Temperature Pulse Rate 69 Respiratory Rate 24 Blood Pressure 224/102 H 188/92 H Pulse Oximetry 99 Oxygen Delivery Method 02/22/23 21:45 02/22/23 22:00 02/22/23 22:00 Temperature Pulse Rate 66 74 Respiratory Rate 29 H 23 Blood Pressure 189/101 H Pulse Oximetry 97 96 Oxygen Delivery Method 02/22/23 22:33 02/22/23 22:35 02/22/23 22:35 Temperature Pulse Rate 73 68 Respiratory Rate Blood Pressure 221/103 H Pulse Oximetry 96 97 Oxygen Delivery Method Room Air 02/22/23 22:40 02/22/23 22:40 02/22/23 22:45 Temperature Pulse Rate 65 Respiratory Rate Blood Pressure 220/105 H 217/102 H Pulse Oximetry 97 Oxygen Delivery Method 02/22/23 22:45 02/22/23 22:50 02/22/23 22:50 Temperature Pulse Rate 65 64 Respiratory Rate Blood Pressure 202/94 H Pulse Oximetry 97 97 Oxygen Delivery Method 02/22/23 22:55 02/22/23 22:55 02/22/23 23:19 Temperature Pulse Rate 75 65 Respiratory Rate Blood Pressure 196/93 H 215/100 H Pulse Oximetry 96 Oxygen Delivery Method Room Air 02/22/23 23:00 02/22/23 23:22 02/22/23 23:22 Temperature Pulse Rate 76 71 Respiratory Rate Blood Pressure 215/100 H Pulse Oximetry 97 97 Oxygen Delivery Method Room Air 02/22/23 23:26 02/22/23 23:26 02/22/23 23:30 Temperature Pulse Rate 82 94 H Respiratory Rate Blood Pressure 222/105 H Pulse Oximetry 98 98 Oxygen Delivery Method 02/23/23 00:36 Temperature Pulse Rate 74 Respiratory Rate Blood Pressure 196/96 H Pulse Oximetry 97 Oxygen Delivery Method Room Air MDM - Abdominal Pain Lab Data 02/22/23 20:17 02/22/23 20:17 Labs: Lab Results 02/22/23 02/22/23 02/22/23 Range/Units 20:17 20:17 21:32 WBC 6.5 (4.5-11.0) X10^3/uL RBC 4.27 L (4.5-5.9) X10^6/uL Hgb 13.0 L (13.5-17.5) g/dL Hct 39.1 L (41-53) % MCV 91.7 (80-100) fL MCH 30.4 (26-34) PG MCHC 33.2 (30-36) % RDW 15.2 H (11.6-14.8) % Plt Count 172 (150-400) X10^3/uL Neut % (Auto) 66.7 (50-75) % Lymph % (Auto) 23.3 L (25-40) % [place] % (Auto) 8.2 (3-14) % Eos % (Auto) 1.0 L (2-4) % Baso % (Auto) 0.8 (0-2) % Neut # (Auto) 4300 (0972-6172) /uL Lymph # (Auto) 1500 (5027-2696) /uL [place] # (Auto) 500 (0-900) /uL Eos # (Auto) 100 (0-450) /uL Baso # (Auto) 100 (0-100) /uL Sodium 138 (137-145) mmol/L Potassium 4.2 (3.4-5.1) mmol/L Chloride 103 (98-107) mmol/L Carbon Dioxide 29 (22-32) mmol/L BUN 21 H (9-20) mg/dL Creatinine 0.85 (0.66-1.25) mg/dL Estimated GFR > 60 (>60) mL/min BUN/Creatinine Ratio 24.7 H (6-22) Glucose 100 (80-110) mg/dL Calcium 9.1 (8.4-10.2) mg/dL Total Bilirubin 0.9 (0.2-1.3) mg/dL AST 25 (17-59) IU/L ALT 7 (<50) IU/L Alkaline Phosphatase 115 (38-126) U/L Total Protein 6.8 (6.3-8.2) g/dL Albumin 4.0 (3.5-5.0) g/dL Globulin 2.8 (1.7-4.1) g/dL Albumin/Globulin Ratio 1.4 (1.0-2.8) Lipase 40 (23-300) U/L Urine RBC None seen (0-5/HPF) Urine WBC None seen (0-5/HPF) Ur Squamous Epith Cells 0-1 /hpf (0-5/HPF) Urine Bacteria None seen (None) Ur Culture Indicated? Cult not indicated Micro UA Comment Microscopic normal Point of care testing: Urine Dip Bedside Urine Glucose Negative Bedside Urine Bilirubin - Negative Bedside Urine Ketone +/- 5 Urine Specific [place] 1.015 Bedside Urine Occult Blood - Negative Bedside Urine pH 7 Bedside Urine Protein - Negative Bedside Urine Urobilinogen - Negative Bedside Urine Nitrite - Negative Bedside Urine Leukocytes - Negative Esterase Imaging Data CT scan - abdomen/pelvis: Radiologist's Impression: [address] [address] [address] Scan Report Signed Patient: Torsten Albrecht MR#: [id number] : 1940 Acct:[id number] Age/Sex: 82 / M Date of Service: 02/22/23 Loc: ED Accession Number: [id number] ?? Procedure: CT abdomen pelvis w con Ordering Provider: Dariel Willson MD PROCEDURE:? CT ABDOMEN PELVIS W CON ? INDICATIONS:? abdominal pain ? TECHNIQUE:? After the administration of IV contrast, axial sections were acquired from the lung bases to the pubic symphysis.? Coronal and sagittal reformats were performed.? For radiation dose reduction, the following was used:? automated exposure control, adjustment of mA and/or kV according to patient size. ? COMPARISON:? [facility], CT, CT ABDOMEN PELVIS W CON, 01/01/2023, 12:26. ? FINDINGS:? Image quality:? There is metallic streak artifact from external devices and wires limiting evaluation as well as streak artifact from patient's surgical hardware in the spine.? ? Lung bases:? There is minimal dependent atelectasis.? ? Heart:? Heart is normal in size. ? ? ABDOMEN: Liver:? No mass lesion. Gallbladder:? Within normal limits without calcified gallstones.? ? Biliary ducts:? No biliary ductal dilatation.? ? Pancreas:? There is a small hypoattenuating lesion within the uncinate process measuring up to 1.0 cm on series 2, image 26 suggestive of a small cystic lesion.? The pancreatic duct is mildly distended, measuring up to 0.4 cm.? No discrete mass visualized.? Findings are similar to the prior study. Spleen:? Normal in size.? ? Adrenal Glands:? No adrenal nodules.? ? Kidneys and Ureters:? No hydronephrosis.? ? ? Stomach and Bowel:? Stomach, small bowel loops, and colon are normal in caliber and wall thickness.? The appendix is normal.? Peritoneum:? No abnormal intraperitoneal fluid.? No free air.? ? Ventral Wall: ? No hernia.? Abdominal Nodes:? No retroperitoneal or mesenteric adenopathy by size criteria.? Vessels:? Aorta and inferior vena cava are normal in size.? ? PELVIS: Pelvic Organs:? Unremarkable.? ? Bladder:? Unremarkable.? ? Pelvic Nodes: No enlarged lymph nodes.? Miscellaneous:? There is a small inguinal hernia with partial herniation of a small bowel loop.? No associated bowel obstruction or strangulation. ? Bones:? Extensive postsurgical changes are redemonstrated within the lumbar spine.? Visualized osseous structures demonstrate no suspicious focal lesions. ? IMPRESSION:? ? 1. No definite acute intra-abdominal abnormality. ? 2. 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 ? 3. Mild dilatation of the pancreatic duct redemonstrated.? The findings are similar to the prior study.? Consider follow-up pancreatic protocol MRI for further evaluation to exclude a mass.? ? Dictated by: Brenden Bruce M.D. on 02/22/2023 at 23:22 ? ? Approved by: Brenden Bruce M.D. on 02/22/2023 at 23:26 ? [facility] Narrative Medical decision making narrative: Patient here with son. Patient just admitted here February 10, 2023 for dizziness. Patient was discharged home. No diagnosis of TIA or stroke. Patient complains of 3 weeks of daily abdominal pain that waxes and wanes and moves in different l ocations. History of bowel obstruction in the past with lysis of adhesions. Patient states this feels different. No urinary complaints other than has a hard time starting his urinary stream. Likely related to BPH. However patient denies any nausea or vomiting diarrhea or constipation. Patient states this problem was here/current even when he was admitted here for February 10 for dizziness. However he states it really was not that much of a problem until recently in the last few days. He does not recall last colonoscopy he is had. Patient in no distress. Blood pressure is noted. However son states blood pressure is very volatile and if blood pressure medication given can cause hypotension and cause dizziness. He is on blood pressure medication as needed. Denies any chest pain back pain or dizziness. After history and exam CBC CMP urinalysis EKG CT abdomen pelvis [facility] CC: Abdominal pain Complicating co-morbidities: History of high blood pressure Data collected from: Patient and son Medical records reviewed: Discharge summary from this hospital February 10, 2023 Differential considered: Includes but not limited to bowel obstruction appendicitis cholecystitis ischemic bowel colitis diverticulitis Exam documented above, pertinent findings include: Nontender abdomen Lab Test results independently reviewed as above. Pertinent findings: WBC 6.5 hemoglobin 13 hematocrit 39 sodium 138 potassium 4.2 GFR greater than 60 glucose 100 AST 25 ALT 7 alkaline phosphatase 115, urinalysis negative leuk esterase negative nitrate Independently reviewed EKG normal sinus rhythm rate [address] elevation or depression Imaging studies independently reviewed: CT abdomen pelvis no acute finding Consultations: None indicated at this time Treatments: Normal saline Re-evaluations: 12:20 a.m.. Reviewed results with patient and son. At this time laboratory studies imaging are reassuring. Blood pressure does wax and wane and this is not new for him. If treated consistently causes him to be orthostatic hypotension. Patient has no complaints of headache or chest pain at this time. Discussion: Appropriate for discharge home for referral for General surgery and Urology for patient's complaints. Blood pressure noted however patient's blood pressure does wax and wane and this is not new. Consistent blood pressure medication causes him to be orthostatic and hypotensive. At this time permissive hypertension is appropriate. Son states this is common. No chest pain no headache no slurred speech or facial droop. Diagnosis: Abdominal pain Discharge Plan Departure Patient Disposition: Home Clinical Impression: Abdominal pain Instructions: DI for Abdominal Pain-Adult Activity Restrictions/Additional Instructions: Please see family doctor this week for re-evaluation of your blood pressure. As we have discussed it does wax and wane. Please call provided general surgery office tomorrow to schedule for colonoscopy and re-evaluation of your abdominal pain. Please do call provided urology office regarding your urinary complaints. Please do continue home medications. Return if worse if any questions or concerns Prescriptions: No Action hydrocodone-acetaminophen [[place]] 5-325 mg tablet 1 tab PO Q4-6H PRN (Reason: pain) Qty: 7 0RF carbidopa-levodopa 48.75-195 mg Capsule, Extended Release 2 cap PO TID Patient Comments: Patient takes these doses at 0700, 1300 and 1800 Rx Instructions: divide evenly over waking hours latanoprost 0.005 % Drops 1 drp OPHTHALMIC (EYE) QPM Patient Comments: Patient normally takes this medication at 1999 atorvastatin 20 mg Tablet 20 mg PO QPM Rx Instructions: Patient normally takes this medication at 1999. alendronate 70 mg Tablet 70 mg PO QWEEK Patient Comments: Patient normally takes this medication on Mondays at 7am melatonin 3 mg Tablet 3 mg PO BEDTIME Patient Comments: Patient normally takes this medication at 1999 clopidogrel 75 mg Tablet 75 mg PO DAILY Patient Comments: Patient normally takes this medication at 1700. pantoprazole 20 mg Tablet,Delayed Release (Dr/Ec) 20 mg PO DAILY Patient Comments: Patient normally takes this medication at 0845. tamsulosin 0.4 mg Capsule 0.4 mg PO BEDTIME Patient Comments: Patient normally takes this medication at 2000. brimonidine 0.2 % Drops 1 drp EYE-BOTH BID Patient Comments: Patient normally takes this medication at 0800 & 1999. mecobalamin (vitamin B12) 1,000 mcg Tablet,Disintegrating 1,000 mcg SUBLINGUAL DAILY Patient Comments: Patient normally takes this medication at 0800 Rx Instructions: place tablet under tongue and allow to dissolve for at least30 secs before swallowing pimavanserin 34 mg Capsule 34 mg PO DAILY Patient Comments: Patient normally takes this medication at 1030. duloxetine 60 mg Capsule, Delayed Rel Sprinkle 60 mg PO DAILY Patient Comments: Patient normally takes this medication at 1700. carbidopa-levodopa 48.75-195 mg Capsule, Extended Release 1 cap PO BID Patient Comments: Patient takes this dose at 1000, 2000 Rx Instructions: divide evenly over waking hours metoprolol succinate 25 mg Tablet Extended Release 24 Hr 25 mg PO BID Patient Comments: Patient normally takes this medication at 0800 & 1700 quetiapine 25 mg Tablet 25 mg PO BID Patient Comments: Patient normally takes this medication at 0800 & 2000 timolol maleate 0.5 % Drops 1 drp OPHTHALMIC (EYE) BID Patient Comments: Patient has this administered at 0700 and 2000 gabapentin 600 mg Tablet 600 mg PO TID Patient Comments: Patient normally takes this medication at Rx Instructions: Patient takes this medication at 0700, 1330 and 2000 pramipexole 1.5 mg Tablet 1.5 mg PO TID Rx Instructions: Patient takes this medication 0700, 1330 and 2000. Referrals: Lila Pang ARNP [Primary Care Provider] - Khari Morataya MD [Physician] - Dariel Meyer MD [Physician] - Stand Alone Forms: Patient Portal/API
[2023-02-22] MEDS: SODIUM CHLORIDE 0.9% 500 ML 1000 ML IV (22:27)
--- NOTE | 2023-02-22 23:01 | PC.NURSE ---
Addendum entered by Tyrell Dixon R.N. 02/22/23 23:25: Correction, new order for lisinopril 10 mg not 20 mg. Addendum entered by Tyrell Dixon R.N. 02/22/23 23:24: New order for lisinopril 20 mg. Original Note: Provider aware of patient vital signs. No new orders at this time.
[2023-02-22] MEDS: lisinopriL 10 MG TABLET PO (23:19)
[2023-02-23 00:36] VITALS: BP 196/96; PULSE 74; O2SAT 97
== END 2023-02-23 00:45 | disposition home or self-care (01) ==
PROVIDERS: Emergency Provider Emergency Medicine; PCP Nurse Practitioner Gerontology
DX: R10.9 Unspecified abdominal pain (principal); I10 Essential (primary) hypertension
CPT/HCPCS: 36415; 74177; 80053; 81003; 81015; 83690; 85025; 93005; 99284; Q9967

== ENCOUNTER 2023-06-20 13:12 | Emergency (ER) | payer OTHER, SELFPAY ==
[2023-06-20 13:20] VITALS: BP 115/59; PULSE 71; RESP 18; TEMP 36.6; O2SAT 97; BMI 22.8
--- NOTE | 2023-06-20 13:28 | DI.CT.S_ITS ---
PROCEDURE: CT HEAD/BRAIN WO CON INDICATIONS: head injury on blood thinners TECHNIQUE: Noncontrast 4.5 mm thick angled axial sections acquired from the foramen magnum to the vertex, with coronal and sagittal reformats. For radiation dose reduction, the following was used: automated exposure control, adjustment of mA and/or kV according to patient size. COMPARISON: [facility], CT, CT ANGIO HEAD AND NECK, 02/10/2023, 12:03. [facility], CT, CT HEAD/BRAIN WO CON, 04/22/2022, 20:19. [facility], MR, MR HEAD/BRAIN WO CON, 02/10/2023, 14:31. [facility], CT, CT CERVICAL SPINE WO CON, 06/20/2023, 13:52. [facility], CT, CT HEAD/BRAIN WO CON, 06/05/2022, 3:01. FINDINGS: Image quality: Mild streak artifact can be seen through the skull base. CSF spaces: Basal cisterns are patent. No extra-axial fluid collections. The ventricles are symmetric in size and shape. Brain: No intracranial bleeds or masses. There is cerebral volume loss for age, with resultant ventricular and sulcal prominence. There are periventricular and deep white matter chronic small vessel ischemic changes. There is intracranial internal carotid artery atherosclerosis. Skull and face: Calvarium and visualized facial bones appear intact, without suspicious lesions. Sinuses: Visualized sinuses and mastoids are clear. IMPRESSION: No acute intracranial hemorrhage is seen. No acute intracranial process is seen. Note is made of age-appropriate brain parenchymal volume loss and chronic small vessel ischemic changes. Dictated by: Joseph Moreira M.D. on 06/20/2023 at 13:11 Approved by: Joseph Moreira M.D. on 06/20/2023 at 13:14
--- NOTE | 2023-06-20 13:29 | DI.CT.S_ITS ---
PROCEDURE: CT CERVICAL SPINE WO CON INDICATIONS: head injury TECHNIQUE: Noncontrast 3 mm thick sections acquired from the skull base to the T4 level. Sagittal and coronal reformats were then constructed. For radiation dose reduction, the following was used: automated exposure control, adjustment of mA and/or kV according to patient size. COMPARISON: [facility], CT, CT ANGIO HEAD AND NECK, 02/10/2023, 12:03. [facility], CT, CT HEAD/BRAIN WO CON, 06/20/2023, 13:52. [facility], CT, CT CERVICAL SPINE WO CON, 04/22/2022, 20:19. FINDINGS: Image quality: There is artifact associated with the metallic dental work. Bones: No fractures or dislocations. Visualized superior ribs are intact. Focal degenerative change is seen involving the C1-C2 interface anteriorly. Moderate disc space narrowing can be seen at C3-C4, with at least moderate disc space narrowing seen at C5-C6 and C6-C7. Post erected endplate osteophytes are seen, which are worst inferiorly. Soft tissues: Prevertebral soft tissues are normal in thickness. No paravertebral hematomas. No apical pneumothoraces. IMPRESSION: Negative for acute fracture. Cervical spine degenerative changes are seen, which are worst inferiorly. Dictated by: Joseph Moreira M.D. on 06/20/2023 at 13:15 Approved by: Joseph Moreira M.D. on 06/20/2023 at 13:17
[2023-06-20 17:04] VITALS: BP 128/50; PULSE 69; RESP 16; O2SAT 97
--- NOTE | 2023-06-20 18:00 | ED_ITS ---
HPI - General Adult General Chief complaint: Trauma Stated complaint: fall, head injury, laceration on lt ear Time Seen by Provider: 06/20/23 15:05 Source: patient Mode of arrival: Wheelchair History of Present Illness HPI narrative: 82-year-old gentleman with a history of Parkinson's disease, hypertension, hyperlipidemia anticoagulated on clopidogrel after a stroke who presents after a fall with head injury. His notes they were walking in a parking lot and he sobered over a concrete divider between the stools. He was able to catch himself for the most part however the left side of his head did hit the concrete divider. There was no loss of consciousness. He is some contusion along the left side of his face and ear but the mid face is not involved. He has no jaw tenderness. He does note some mild cervical spine tenderness. There was no chest pain, dyspnea, palpitations and he reports no recent fevers, cough, chills. This was purely a mechanical fall Related Data Home Medications Medication Instructions Recorded Confirmed alendronate 70 mg tablet 70 mg PO QWEEK 02/10/23 02/10/23 atorvastatin 20 mg tablet 20 mg PO QPM 02/10/23 02/10/23 brimonidine 0.2 % eye drops 1 drp EYE-BOTH BID 02/10/23 02/10/23 carbidopa ER 48.75 mg-levodopa 195 1 cap PO BID 02/10/23 06/20/23 mg capsule,extended release carbidopa ER 48.75 mg-levodopa 195 2 cap PO TID 02/10/23 06/20/23 mg capsule,extended release clopidogrel 75 mg tablet 75 mg PO DAILY 02/10/23 06/20/23 duloxetine 60 mg capsule,delayed 60 mg PO DAILY 02/10/23 02/10/23 release sprinkle gabapentin 600 mg tablet 600 mg PO TID 02/10/23 02/10/23 latanoprost 0.005 % eye drops 1 drp ophthalmic (eye) QPM 02/10/23 02/10/23 mecobalamin (vitamin B12) 1,000 1,000 mcg sublingual DAILY 02/10/23 02/10/23 mcg disintegrating tablet,sublingual melatonin 3 mg tablet 3 mg PO BEDTIME 02/10/23 02/10/23 metoprolol succinate 25 mg 25 mg PO BID 02/10/23 02/10/23 tablet,extended release 24 hr pantoprazole 20 mg tablet,delayed 20 mg PO DAILY 02/10/23 02/10/23 release pimavanserin 34 mg capsule 34 mg PO DAILY 02/10/23 02/10/23 pramipexole 1.5 mg tablet 1.5 mg PO TID 02/10/23 02/10/23 quetiapine 25 mg tablet 25 mg PO BID 02/10/23 02/10/23 tamsulosin 0.4 mg capsule 0.4 mg PO BEDTIME 02/10/23 02/10/23 timolol maleate 0.5 % eye drops 1 drp ophthalmic (eye) BID 02/10/23 02/10/23 Previous Rx's Medication Instructions Recorded hydrocodone 5 mg-acetaminophen 325 1 tab PO Q4-6H PRN pain #7 tabs 01/01/ mg tablet (Balm) Allergies Allergy/AdvReac Type Severity Reaction Status Date / Time azithromycin Allergy Verified 06/20/23 13:32 haloperidol [From Haldol] Allergy Verified 06/20/23 13:32 Review of Systems Review of Systems Narrative: Pertinent positive and negative findings as per HPI Patient History Medical History CVA (cerebral vascular accident) Parkinsons disease Social History lives independently: Yes Smoking Status: Never smoker Smoking Status: Never smoker alcohol intake frequency: other Substance Use Type: does not use Exam Initial Vital Signs Initial Vital Signs: Vital Signs Temperature 98 F 06/20/23 13:20 Pulse Rate 71 06/20/23 13:20 Respiratory Rate 18 06/20/23 13:20 Blood Pressure 115/59 L 06/20/23 13:20 Pulse Oximetry 97 06/20/23 13:20 Oxygen Delivery Method Room Air 06/20/23 13:20 General: Healthy appearing, in no acute distress. Able to give a complete and coherent history. Well-nourished well-developed HEENT: Moist mucous membranes, normal sclera with reactive pupils, contusion/abrasion over the left side of his face and left ear. Some minor scratches but none large enough to require suturing. There is no jaw tenderness or dental malocclusion. Neck: There is some minor tenderness at midline C5-C6 but otherwise unremarkable Respiratory: Lungs are clear to auscultation, no wheezing no rales no rhonchi. Full and symmetrical air movement Cardiac: Regular rate and rhythm no murmurs no bruits Abdomen: Soft, nontender, good bowel tones, no flank pain Skin: Warm and dry, no rashes Neurologic: Parkinsonian tremor but otherwise at his baseline Extremities: No trauma, well perfused Psych: Cooperative, appropriate insight and affect Course Orders Ordered: ED Orders 06/20/23 13:28 CT head/brain wo con Stat 06/20/23 13:29 CT cervical spine wo con Stat Vital Signs Vital signs: Vital Signs - 8 hr 06/20/23 13:20 06/20/23 17:04 Temperature 98 F Pulse Rate 71 69 Respiratory Rate 18 16 Blood Pressure 115/59 L 128/50 L Pulse Oximetry 97 97 Oxygen Delivery Method Room Air Room Air Medical Decision Making MDM Narrative Medical decision making narrative: CC: Fall, anticoagulated on Plavix Complicating co-morbidities: Parkinson's disease Data collected from: patient, and Medical records reviewed:ER notes over the past 4 years are all reviewed. No other records are immediately available Differential considered: Intracranial hemorrhage, recurrent stroke, seizure, Exam documented above, pertinent findings include: Contusion to the left side of face, some minor abrasions and contusion to the left ear. Bleeding is controlled none of the abrasions are significant for suturing. He is alert and appropriate. Imaging studies independently reviewed: CT scan of the head does not show any acute intracranial hemorrhage CT scan of the cervical spine does not show any acute abnormalities Discussion: 82-year-old gentleman with a mechanical fall landing on the left side of his face minor abrasions and contusion but nothing that needs suturing no intracranial hemorrhage and no broken bones. He is not complaining of any pain or tenderness at this point declines any additional pain medication. Findings reviewed with both he and his and he is safe for discharge home Additional Information: [facility] Emergency Medicine: Utilization of CT for Minor Blunt Head Trauma (Adult) Patient is 18 or older, presenting with minor blunt head trauma. Head CT was ordered by an emergency career advisor for trauma because Reasons: Patient is 65 or older Patient taking anticoagulant medication Discharge Plan Departure Patient Disposition: Home Clinical Impression: Fall Qualifiers: Encounter type: initial encounter Qualified Code(s): W19.XXXA - Unspecified fall, initial encounter Contusion of face Qualifiers: Encounter type: initial encounter Qualified Code(s): S00.83XA - Contusion of other part of head, initial encounter Instructions: DI for Contusion, How to Prevent Falls Activity Restrictions/Additional Instructions: Thank you for coming in today Thank you also for your patient's in waiting. It was very appropriate for you to come in. You do have quite a contusion to the side of your face and I would expect quite a bit of bruising. None of the cuts need any suturing. The CT scan of your head is unremarkable and the CT scan of your cervical spine is equally reassuring If you find that your sore over the course of the evening, Tylenol would be very appropriate. I hope that you are able to make up the day at some point in the near future. If you find that you are getting worse or develop any new symptoms, please feel free to return to the emergency department for further evaluation. Prescriptions: No Action hydrocodone-acetaminophen [Balm] 5-325 mg tablet 1 tab PO Q4-6H PRN (Reason: pain) Qty: 7 0RF carbidopa-levodopa 48.75-195 mg Capsule, Extended Release 2 cap PO TID Patient Comments: Patient takes these doses at 0700, 1300 and 1800 Rx Instructions: divide evenly over waking hours latanoprost 0.005 % Drops 1 drp OPHTHALMIC (EYE) QPM Patient Comments: Patient normally takes this medication at 1999 atorvastatin 20 mg Tablet 20 mg PO QPM Rx Instructions: Patient normally takes this medication at 1999. alendronate 70 mg Tablet 70 mg PO QWEEK Patient Comments: Patient normally takes this medication on Mondays at 7am melatonin 3 mg Tablet 3 mg PO BEDTIME Patient Comments: Patient normally takes this medication at 1999 clopidogrel 75 mg Tablet 75 mg PO DAILY Patient Comments: Patient normally takes this medication at 1700. pantoprazole 20 mg Tablet,Delayed Release (Dr/Ec) 20 mg PO DAILY Patient Comments: Patient normally takes this medication at 0845. tamsulosin 0.4 mg Capsule 0.4 mg PO BEDTIME Patient Comments: Patient normally takes this medication at 1999. brimonidine 0.2 % Drops 1 drp EYE-BOTH BID Patient Comments: Patient normally takes this medication at 0800 & 1999. mecobalamin (vitamin B12) 1,000 mcg Tablet,Disintegrating 1,000 mcg SUBLINGUAL DAILY Patient Comments: Patient normally takes this medication at 0800 Rx Instructions: place tablet under tongue and allow to dissolve for at least30 secs before swallowing pimavanserin 34 mg Capsule 34 mg PO DAILY Patient Comments: Patient normally takes this medication at 1030. duloxetine 60 mg Capsule, Delayed Rel Sprinkle 60 mg PO DAILY Patient Comments: Patient normally takes this medication at 1700. carbidopa-levodopa 48.75-195 mg Capsule, Extended Release 1 cap PO BID Patient Comments: Patient takes this dose at 1000, 2000 Rx Instructions: divide evenly over waking hours metoprolol succinate 25 mg Tablet Extended Release 24 Hr 25 mg PO BID Patient Comments: Patient normally takes this medication at 0800 & 1700 quetiapine 25 mg Tablet 25 mg PO BID Patient Comments: Patient normally takes this medication at 0800 & 2000 timolol maleate 0.5 % Drops 1 drp OPHTHALMIC (EYE) BID Patient Comments: Patient has this administered at 0700 and 2000 gabapentin 600 mg Tablet 600 mg PO TID Patient Comments: Patient normally takes this medication at Rx Instructions: Patient takes this medication at 0700, 1330 and 2000 pramipexole 1.5 mg Tablet 1.5 mg PO TID Rx Instructions: Patient takes this medication 0700, 1330 and 2000. Referrals: Lila Pang ARNP [Primary Care Provider] - Stand Alone Forms: Patient Portal/API
[2023-06-20 18:13] VITALS: BP 165/76; PULSE 71; RESP 17; O2SAT 96
== END 2023-06-20 18:16 | disposition home or self-care (01) ==
PROVIDERS: Emergency Provider Emergency Medicine; PCP Nurse Practitioner Gerontology
DX: S00.83XA Contusion of other part of head, initial encounter (principal); W18.30XA Fall on same level, unspecified, initial encounter
CPT/HCPCS: 70450; 72125; 99284

== ENCOUNTER 2023-07-30 11:30 | Emergency (ER) | payer OTHER, SELFPAY ==
[2023-07-30 11:38] VITALS: BP 127/58; PULSE 77; RESP 18; O2SAT 95; BMI 22.8
--- NOTE | 2023-07-30 12:10 | ED.GENADULT ---
HPI - General Adult General Chief complaint: Abdominal Pain Stated complaint: RLQ Pain Time Seen by Provider: 07/30/23 11:50 Source: patient Mode of arrival: EMS History of Present Illness HPI narrative: Patient is an 82-year-old male. He arrives by EMS for evaluation of what was initially described was right lower quadrant abdominal pain however the patient states it is more right lower back and right flank pain. He has had pain in this area for the past several months but yesterday it got significantly worse. He has been having urinary issues. Feel like he is not emptying his bladder but this is not necessarily new. He is not having any abdominal pain. No fevers. No change in bowel habits. No vomiting. He has had a bowel obstruction in the past requiring surgery. Has not tried anything for symptoms prior to arrival. Related Data Home Medications Medication Instructions Recorded Confirmed alendronate 70 mg tablet 70 mg PO QWEEK 02/10/23 02/10/23 atorvastatin 20 mg tablet 20 mg PO QPM 02/10/23 02/10/23 brimonidine 0.2 % eye drops 1 drp EYE-BOTH BID 02/10/23 02/10/23 carbidopa ER 48.75 mg-levodopa 195 1 cap PO BID 02/10/23 06/20/23 mg capsule,extended release carbidopa ER 48.75 mg-levodopa 195 2 cap PO TID 02/10/23 06/20/23 mg capsule,extended release clopidogrel 75 mg tablet 75 mg PO DAILY 02/10/23 06/20/23 duloxetine 60 mg capsule,delayed 60 mg PO DAILY 02/10/23 02/10/23 release sprinkle gabapentin 600 mg tablet 600 mg PO TID 02/10/23 02/10/23 latanoprost 0.005 % eye drops 1 drp ophthalmic (eye) QPM 02/10/23 02/10/23 mecobalamin (vitamin B12) 1,000 1,000 mcg sublingual DAILY 02/10/23 02/10/23 mcg disintegrating tablet,sublingual melatonin 3 mg tablet 3 mg PO BEDTIME 02/10/23 02/10/23 metoprolol succinate 25 mg 25 mg PO BID 02/10/23 02/10/23 tablet,extended release 24 hr pantoprazole 20 mg tablet,delayed 20 mg PO DAILY 02/10/23 02/10/23 release pimavanserin 34 mg capsule 34 mg PO DAILY 02/10/23 02/10/23 pramipexole 1.5 mg tablet 1.5 mg PO TID 02/10/23 02/10/23 quetiapine 25 mg tablet 25 mg PO BID 02/10/23 02/10/23 tamsulosin 0.4 mg capsule 0.4 mg PO BEDTIME 02/10/23 02/10/23 timolol maleate 0.5 % eye drops 1 drp ophthalmic (eye) BID 02/10/23 02/10/23 Previous Rx's Medication Instructions Recorded hydrocodone 5 mg-acetaminophen 325 1 tab PO Q4-6H PRN pain #7 tabs 01/01/19 mg tablet ([place]) Allergies Allergy/AdvReac Type Severity Reaction Status Date / Time azithromycin Allergy Verified 06/20/23 13:32 haloperidol [From Haldol] Allergy Verified 06/20/23 13:32 Review of Systems Constitutional Constitutional: Reports system reviewed and no additional complaints, except as documented Gastrointestinal Gastrointestinal: Reports system reviewed and no additional complaints, except as documented Genitourinary Genitourinary: Reports system reviewed and no additional complaints, except as documented Musculoskeletal Musculoskeletal: Reports system reviewed and no additional complaints, except as documented Integumentary/Breasts Skin/Breast: Reports system reviewed and no additional complaints, except as documented Hematologic/Lymphatic On Anticoagulants: No Patient History Medical History CVA (cerebral vascular accident) Parkinsons disease Social History lives independently: Yes Smoking Status: Never smoker Smoking Status: Never smoker alcohol intake frequency: holidays/special occasions only Substance Use Type: does not use Exam Initial Vital Signs Initial Vital Signs: Vital Signs Pulse Rate 77 07/30/23 11:38 Respiratory Rate 18 07/30/23 11:38 Blood Pressure 127/58 L 07/30/23 11:38 Pulse Oximetry 95 07/30/23 11:38 Oxygen Delivery Method Room Air 07/30/23 11:38 [facility] Head: normal to inspection and normocephalic Resp Effort & Inspection: normal respiratory effort Cardio Rate: regular rate GI Inspection: normal to inspection and non-distended Palpation: soft, No firm and No tender Back/Spine/Pelvis Back: No CVA tenderness Skin General: no rashes or lesions noted Neuro General: patient alert, patient awake and moves all extremities Extrem General: capillary refill normal Course Orders Ordered: ED Orders 07/30/23 12:10 CT kidney ureter bladder (KUB) Stat 07/30/23 12:45 Complete Blood Count AUTO DIFF Stat Comprehensive Metabolic Panel Stat Lipase Stat Carbidopa/Levodopa (Carbidopa-Levodopa Er 50/200 Tablet) 1 each PO TID [facility] Last Admin: 07/30/23 13:36 Dose: 1 each Documented By: VIGNESH Gabapentin (Gabapentin 300 Mg Capsule) 300 mg PO TID [facility] Last Admin: 07/30/23 13:36 Dose: 300 mg Documented By: VIGNESH Pramipexole Dihydrochloride (Pramipexole 0.25 Mg Tablet) 0.5 mg PO TID [facility] Last Admin: 07/30/23 13:37 Dose: 0.5 mg Documented By: VIGNESH Discontinued Medications Sodium Chloride (Normal Saline 0.9%) 1,000 mls @ 1,000 mls/hr IV BOLUS ONE Stop: 07/30/23 13:08 Last Infusion: 07/30/23 13:21 Dose: Infused Documented By: Admin: 07/30/23 12:23 Dose: 1,000 mls/hr Documented By: MARLENE Vital Signs Vital signs: Vital Signs - 8 hr 07/30/23 11:38 Pulse Rate 77 Respiratory Rate 18 Blood Pressure 127/58 L Pulse Oximetry 95 Oxygen Delivery Method Room Air Medical Decision Making Medical Records Medical records reviewed: Yes I reviewed the patient's medical records. Lab Data Lab results reviewed: Yes I reviewed the patient's lab results. 07/30/23 12:45 07/30/23 12:45 Labs: Lab Results 07/30/23 Range/Units 12:45 WBC 5.8 (4.5-11.0) X10^3/uL RBC 3.46 L (4.5-5.9) X10^6/uL Hgb 11.1 L (13.5-17.5) g/dL Hct 32.8 L (41-53) % MCV 94.8 (80-100) fL MCH 31.9 (26-34) PG MCHC 33.7 (30-36) % RDW 13.6 (11.6-14.8) % Plt Count 163 (150-400) X10^3/uL Neut % (Auto) 65.9 (50-75) % Lymph % (Auto) 23.1 L (25-40) % [place] % (Auto) 7.5 (3-14) % Eos % (Auto) 2.7 (2-4) % Baso % (Auto) 0.8 (0-2) % Neut # (Auto) 3800 (6378-2017) /uL Lymph # (Auto) 1300 (0933-5737) /uL [place] # (Auto) 400 (0-900) /uL Eos # (Auto) 200 (0-450) /uL Baso # (Auto) 0 (0-100) /uL Sodium 136 L (137-145) mmol/L Potassium 3.9 (3.4-5.1) mmol/L Chloride 107 (98-107) mmol/L Carbon Dioxide 26 (22-32) mmol/L BUN 26 H (9-20) mg/dL Creatinine 0.88 (0.66-1.25) mg/dL Estimated GFR > 60 (>60) mL/min BUN/Creatinine Ratio 29.5 H (6-22) Glucose 89 (80-110) mg/dL Calcium 8.3 L (8.4-10.2) mg/dL Total Bilirubin 0.9 (0.2-1.3) mg/dL AST 22 (17-59) IU/L ALT 5 (<50) IU/L Alkaline Phosphatase 69 (38-126) U/L Total Protein 5.8 L (6.3-8.2) g/dL Albumin 3.3 L (3.5-5.0) g/dL Globulin 2.5 (1.7-4.1) g/dL Albumin/Globulin Ratio 1.3 (1.0-2.8) Lipase 31 (23-300) U/L Urine Dip Bedside Urine Glucose Negative Bedside Urine Bilirubin - Negative Bedside Urine Ketone - Negative Urine Specific [place] 1.015 Bedside Urine Occult Blood - Negative Bedside Urine pH 6.0 Bedside Urine Protein - Negative Bedside Urine Urobilinogen - Negative Bedside Urine Nitrite - Negative Bedside Urine Leukocytes - Negative Esterase Point of care testing: Urine Dip Bedside Urine Glucose Negative Bedside Urine Bilirubin - Negative Bedside Urine Ketone - Negative Urine Specific [place] 1.015 Bedside Urine Occult Blood - Negative Bedside Urine pH 6.0 Bedside Urine Protein - Negative Bedside Urine Urobilinogen - Negative Bedside Urine Nitrite - Negative Bedside Urine Leukocytes - Negative Esterase Imaging Data CT scan - abdomen/pelvis: Radiologist's Impression: PROCEDURE: CT KIDNEY URETER BLADDER (KUB) INDICATIONS: Right-side flank pain concern for stone TECHNIQUE: Axial sections were acquired from the lung bases to the pubic symphysis. Coronal and sagittal reformats were performed. For radiation dose reduction, the following was used: automated exposure control, adjustment of mA and/or kV according to patient size. COMPARISON: [facility], CT, CT ABDOMEN PELVIS W CON, 02/22/2023, 22:12. FINDINGS: Image quality: Excellent. Lung bases: Unremarkable. Heart: No significant findings. URINARY: Right Kidney: No stones or hydronephrosis. Right Ureter: No hydroureter. Left Kidney: No stones or hydronephrosis. Left Ureter: No hydroureter. Bladder: Normal wall thickness. No stones. ABDOMEN: Liver: Unremarkable. Gallbladder: Unremarkable. Biliary ducts: Unremarkable. Pancreas: Unremarkable. Spleen: Unremarkable. Adrenal Glands: Unremarkable. Stomach and Bowel: Mobile cecum. Stomach, small bowel loops, and colon are otherwise unremarkable. Large diffuse fecal load. Peritoneum: No abnormal intraperitoneal fluid. No free air. Ventral Wall: No hernia. Abdominal Nodes: No enlarged retroperitoneal or mesenteric lymph nodes. Vessels: Aorta and inferior vena cava are normal in size. PELVIS: Pelvic Organs: Prostate is somewhat enlarged.. Pelvic Nodes: Unremarkable. Miscellaneous: Small fat containing right inguinal hernia. Bones: Advanced lumbar degenerative change. Extensive hardware from previous lumbar surgeries. No lytic or blastic bony lesions. No compression fractures. IMPRESSION: 1. Large diffuse fecal load. 2. No renal stones, ureteral stones, or hydronephrosis. 3. Small fat containing right inguinal hernia. 4. 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 MDM Narrative Medical decision making narrative: Patient does have a benign abdominal exam. Urinalysis is unremarkable. He was able to urinate. CT scan does show a large colonic stool burden. The patient states he did have a bowel movement yesterday. He normally goes once every 3 days. It was a soft bowel movement yesterday. There was no other acute pathology. I did discuss this with the patient. We did discuss a good bowel regimen. He was given return precautions. He expressed understanding and agreement. Discharge Plan Departure Patient Disposition: Home Clinical Impression: Abdominal pain, Constipation Instructions: DI for Abdominal Pain-Adult Activity Restrictions/Additional Instructions: Recommend that you continue to take all of your medications as directed. I do recommend that you consider taking a laxative for the next several days has the CT scan does show that you have quite a bit of stool in your colon. This could be contributing to your abdominal pain. Contact your primary provider for a follow-up Prescriptions: No Action hydrocodone-acetaminophen [[place]] 5-325 mg tablet 1 tab PO Q4-6H PRN (Reason: pain) Qty: 7 0RF carbidopa-levodopa 48.75-195 mg Capsule, Extended Release 2 cap PO TID Patient Comments: Patient takes these doses at 0700, 1300 and 1800 Rx Instructions: divide evenly over waking hours latanoprost 0.005 % Drops 1 drp OPHTHALMIC (EYE) QPM Patient Comments: Patient normally takes this medication at 1999 atorvastatin 20 mg Tablet 20 mg PO QPM Rx Instructions: Patient normally takes this medication at 1999. alendronate 70 mg Tablet 70 mg PO QWEEK Patient Comments: Patient normally takes this medication on Mondays at 7am melatonin 3 mg Tablet 3 mg PO BEDTIME Patient Comments: Patient normally takes this medication at 1999 clopidogrel 75 mg Tablet 75 mg PO DAILY Patient Comments: Patient normally takes this medication at 1700. pantoprazole 20 mg Tablet,Delayed Release (Dr/Ec) 20 mg PO DAILY Patient Comments: Patient normally takes this medication at 0845. tamsulosin 0.4 mg Capsule 0.4 mg PO BEDTIME Patient Comments: Patient normally takes this medication at 2000. brimonidine 0.2 % Drops 1 drp EYE-BOTH BID Patient Comments: Patient normally takes this medication at 0800 & 1999. mecobalamin (vitamin B12) 1,000 mcg Tablet,Disintegrating 1,000 mcg SUBLINGUAL DAILY Patient Comments: Patient normally takes this medication at 0800 Rx Instructions: place tablet under tongue and allow to dissolve for at least30 secs before swallowing pimavanserin 34 mg Capsule 34 mg PO DAILY Patient Comments: Patient normally takes this medication at 1030. duloxetine 60 mg Capsule, Delayed Rel Sprinkle 60 mg PO DAILY Patient Comments: Patient normally takes this medication at 1700. carbidopa-levodopa 48.75-195 mg Capsule, Extended Release 1 cap PO BID Patient Comments: Patient takes this dose at 1000, 2000 Rx Instructions: divide evenly over waking hours metoprolol succinate 25 mg Tablet Extended Release 24 Hr 25 mg PO BID Patient Comments: Patient normally takes this medication at 0800 & 1700 quetiapine 25 mg Tablet 25 mg PO BID Patient Comments: Patient normally takes this medication at 0800 & 2000 timolol maleate 0.5 % Drops 1 drp OPHTHALMIC (EYE) BID Patient Comments: Patient has this administered at 0700 and 2000 gabapentin 600 mg Tablet 600 mg PO TID Patient Comments: Patient normally takes this medication at Rx Instructions: Patient takes this medication at 0700, 1330 and 2000 pramipexole 1.5 mg Tablet 1.5 mg PO TID Rx Instructions: Patient takes this medication 0700, 1330 and 2000. Referrals: Lila Pang ARNP [Primary Care Provider] - Stand Alone Forms: Patient Portal/API
[2023-07-30] MEDS: SODIUM CHLORIDE 0.9% 1,000 ML 1000 ML IV (12:23)
[2023-07-30 12:52] LABS: Add Manual Diff / Slide Review NO; Basophils Absolute Auto 0 /uL (0-100); Basophils Percent Auto 0.8 % (0-2); Eosinophils Absolute Auto 200 /uL (0-450); Eosinophils Percent Auto 2.7 % (2-4); Hematocrit 32.8 % (41-53); Hemoglobin 11.1 g/dL (13.5-17.5); Lymphocytes Absolute Auto 1300 /uL (1100-4500); Lymphocytes Percent Auto 23.1 % (25-40); Mean Corpuscular HGB Conc 33.7 % (30-36); Mean Corpuscular Hemoglobin 31.9 PG (26-34); Mean Corpuscular Volume 94.8 fL (80-100); Monocytes Absolute Auto 400 /uL (0-900); Monocytes Percent Auto 7.5 % (3-14); Neutrophils Absolute Auto 3800 /uL (1500-7000); Neutrophils Percent Auto 65.9 % (50-75); Platelet Count 163 X10^3/uL (150-400); Red Blood Cell Count 3.46 X10^6/uL (4.5-5.9); Red Cell Distribution Width 13.6 % (11.6-14.8); White Blood Cell Count 5.8 X10^3/uL (4.5-11.0)
[2023-07-30 13:05] LABS: Alanine Aminotransferase 5 IU/L (<50); Albumin 3.3 g/dL (3.5-5.0); Albumin Globulin Ratio 1.3 (1.0-2.8); Alkaline Phosphatase 69 U/L (38-126); Aspartate Aminotransferase 22 IU/L (17-59); BUN Creatinine Ratio 29.5 (6-22); Bilirubin Total 0.9 mg/dL (0.2-1.3); Blood Urea Nitrogen 26 mg/dL (9-20); Calcium 8.3 mg/dL (8.4-10.2); Carbon Dioxide 26 mmol/L (22-32); Chloride 107 mmol/L (98-107); Estimated Glomerular Filt Rate > 60 mL/min (>60); Globulin 2.5 g/dL (1.7-4.1); Glucose 89 mg/dL (80-110); HEMOLYSIS < 15 (0-50); Lipase 31 U/L (23-300); Potassium 3.9 mmol/L (3.4-5.1); Sodium 136 mmol/L (137-145); Total Protein 5.8 g/dL (6.3-8.2)
[2023-07-30 13:30] VITALS: BP 162/87; PULSE 78; RESP 16; O2SAT 97
[2023-07-30] MEDS: CARBIDOPA-LEVODOPA ER 50/200 TABLET 1 EACH PO (13:36)
[2023-07-30] MEDS: GABAPENTIN 300 MG CAPSULE PO (13:36)
[2023-07-30] MEDS: PRAMIPEXOLE 0.25 MG TABLET 0.5 MG PO (13:37)
[2023-07-30 14:00] VITALS: BP 190/86; PULSE 73; RESP 16; O2SAT 96
[2023-07-30 14:40] VITALS: BP 186/96; PULSE 64; RESP 18; TEMP 37.1; O2SAT 98
--- NOTE | 2023-07-30 14:56 | PC.NURSE ---
patient is no longer in pain. He states that 2 months ago his pain started in his left side and then eventually moved across the back to the right side and then began having urinary issues. He states that he has been eating more food ever since he moved into the assisted. He was able to take tylenol for pain and it was helping.
[2023-07-30 15:30] VITALS: BP 173/87; PULSE 79; RESP 12; O2SAT 97
== END 2023-07-30 15:32 | disposition home or self-care (01) ==
PROVIDERS: Emergency Provider Emergency Medicine; PCP Nurse Practitioner Gerontology
DX: R10.31 Right lower quadrant pain (principal); K59.00 Constipation, unspecified; M54.50 Low back pain, unspecified
CPT/HCPCS: 51798; 74176; 80053; 81003; 83690; 85025; 99284

== ENCOUNTER 2024-08-24 17:02 | Emergency (ER) | payer OTHER, SELFPAY ==
[2024-08-24] VITALS (13 sets, daily range): BP systolic 148–198; BP diastolic 70–103; PULSE 62–89; RESP 12–28; TEMP 36.7; O2SAT 96–98; BMI 24.3
--- NOTE | 2024-08-24 17:15 | DI.RAD.S_ITS ---
PROCEDURE: XR CHEST 1V INDICATIONS: Eval for pulmonary edema TECHNIQUE: One view of the chest was acquired. COMPARISON: [facility], CR, XR CHEST 1V, 02/10/2023, 11:04. [facility], CR, XR CHEST 1V, 01/01/2023, 11:17. FINDINGS: Surgical changes and devices: None. Lungs and pleura: Lungs are clear. No pleural effusions or pneumothorax. Mediastinum: Mediastinal contours appear normal. Heart size is normal. Bones and chest wall: No suspicious bony lesions. Overlying soft tissues appear unremarkable. IMPRESSION: No findings concerning for pulmonary edema. No acute cardiopulmonary abnormality is seen. Dictated by: Emiliano Eastman M.D. on 08/24/2024 at 17:57 Approved by: Emiliano Eastman M.D. on 08/24/2024 at 17:58
[2024-08-24 17:21] LABS: Add Manual Diff / Slide Review NO; Basophils Absolute Auto 0 /uL (0-100); Basophils Percent Auto 0.5 % (0-2); Eosinophils Absolute Auto 100 /uL (0-450); Eosinophils Percent Auto 1.7 % (2-4); Hematocrit 33.6 % (41-53); Hemoglobin 11.2 g/dL (13.5-17.5); Lymphocytes Absolute Auto 1800 /uL (1100-4500); Lymphocytes Percent Auto 32.9 % (25-40); Mean Corpuscular HGB Conc 33.2 % (30-36); Mean Corpuscular Volume 99.5 fL (80-100); Monocytes Absolute Auto 600 /uL (0-900); Monocytes Percent Auto 11.1 % (3-14); Neutrophils Absolute Auto 3000 /uL (1500-7000); Neutrophils Percent Auto 53.8 % (50-75); Platelet Count 187 X10^3/uL (150-400); Red Blood Cell Count 3.38 X10^6/uL (4.5-5.9); Red Cell Distribution Width 13.3 % (11.6-14.8); White Blood Cell Count 5.6 X10^3/uL (4.5-11.0)
[2024-08-24 17:30] LABS: Alanine Aminotransferase 7 IU/L (<50); Albumin 3.8 g/dL (3.5-5.0); Albumin Globulin Ratio 1.4 (1.0-2.8); Alkaline Phosphatase 60 U/L (38-126); Aspartate Aminotransferase 26 IU/L (17-59); BUN Creatinine Ratio 31.1 (6-22); Bilirubin Total 0.6 mg/dL (0.2-1.3); Blood Urea Nitrogen 33 mg/dL (9-20); Carbon Dioxide 30 mmol/L (22-32); Chloride 104 mmol/L (98-107); Creatine Kinase 102 U/L (55-170); Estimated Glomerular Filt Rate > 60 mL/min (>60); Globulin 2.8 g/dL (1.7-4.1); Glucose 103 mg/dL (80-110); HEMOLYSIS < 15 (0-50); Lipase 83 U/L (23-300); Potassium 4.6 mmol/L (3.4-5.1); Sodium 136 mmol/L (137-145); Total Protein 6.6 g/dL (6.3-8.2)
[2024-08-24 17:42] LABS: NT-proBNP (BNP-Adult 18+) 157 pg/mL (<450); Troponin I < 0.012 ng/mL (0.01-0.034)
--- NOTE | 2024-08-24 19:02 | EKG_ITS ---
[address] [address] [place] [address] Test Date: 2024-08-24 Pat Name: Torsten Albrecht Department: [facility] Room: Gender: Male Senior Sales Executive: XANDER : 1940 Requested By: Order Number: [id number] Reading MD: Chandrakant Latham MD Measurements Intervals [place] Rate: 67 P: 47 [place]: 168 QRS: -34 QRSD: 86 T: 38 QT: 384 QTc: 405 Interpretive Statements Normal sinus rhythm Left axis deviation NO SIGNIFICANT CHANGE FROM PRIOR TRACING Electronically Signed On 08-25-2024 7:38:16 PST by Chandrakant Latham MD
--- NOTE | 2024-08-24 19:28 | ED_ITS ---
HPI - General Adult General Chief complaint: Shortness of Breath/Dyspnea Stated complaint: SOB,swelling ankles Time Seen by Provider: 08/24/24 17:27 Source: patient and EMS Mode of arrival: EMS History of Present Illness HPI narrative: 83-year-old male resident at [facility] care facility in [place], complains of 5 days duration bilateral lower extremity edema. No injury or trauma. No change in medications. No new medications. No chest pain or shortness of breath. No fevers or chills. No redness. He denies knowledge of having heart failure or kidney failure or liver failure. Denies history of blood clots to legs or lungs, denies chest pain or shortness of breath Related Data Home Medications Medication Instructions Recorded Confirmed alendronate 70 mg tablet 70 mg PO QWEEK 02/10/23 02/10/23 atorvastatin 20 mg tablet 20 mg PO QPM 02/10/23 02/10/23 brimonidine 0.2 % eye drops 1 drp EYE-BOTH BID 02/10/23 02/10/23 carbidopa ER 48.75 mg-levodopa 195 1 cap PO BID 02/10/23 06/20/23 mg capsule,extended release carbidopa ER 48.75 mg-levodopa 195 2 cap PO TID 02/10/23 06/20/23 mg capsule,extended release clopidogrel 75 mg tablet 75 mg PO DAILY 02/10/23 06/20/23 duloxetine 60 mg capsule,delayed 60 mg PO DAILY 02/10/23 02/10/23 release sprinkle gabapentin 600 mg tablet 600 mg PO TID 02/10/23 02/10/23 latanoprost 0.005 % eye drops 1 drp ophthalmic (eye) QPM 02/10/23 02/10/23 mecobalamin (vitamin B12) 1,000 1,000 mcg sublingual DAILY 02/10/23 02/10/23 mcg disintegrating tablet,sublingual melatonin 3 mg tablet 3 mg PO BEDTIME 02/10/23 02/10/23 metoprolol succinate 25 mg 25 mg PO BID 02/10/23 02/10/23 tablet,extended release 24 hr pantoprazole 20 mg tablet,delayed 20 mg PO DAILY 02/10/23 02/10/23 release pimavanserin 34 mg capsule 34 mg PO DAILY 05/30/23 05/30/23 pramipexole 1.5 mg tablet 1.5 mg PO TID 02/10/23 02/10/23 quetiapine 25 mg tablet 25 mg PO BID 02/10/23 02/10/23 tamsulosin 0.4 mg capsule 0.4 mg PO BEDTIME 02/10/23 02/10/23 timolol maleate 0.5 % eye drops 1 drp ophthalmic (eye) BID 02/10/23 02/10/23 Previous Rx's Medication Instructions Recorded hydrocodone 5 mg-acetaminophen 325 1 tab PO Q4-6H PRN pain #7 tabs 01/01/ mg tablet ([place]) furosemide 20 mg tablet (Lasix) 20 mg PO DAILY 7 days #7 tabs 08/24/24 potassium chloride 10 mEq 10 meq PO DAILY #7 caps 08/24/24 capsule,extended release Allergies Allergy/AdvReac Type Severity Reaction Status Date / Time azithromycin Allergy Verified 06/20/23 13:32 haloperidol [From Haldol] Allergy Verified 06/20/23 13:32 Review of Systems Review of Systems Narrative: See HPI Patient History Medical History CVA (cerebral vascular accident) Parkinsons disease Social History lives independently: Yes Smoking Status: Never smoker Smoking Status: Never smoker alcohol intake frequency: holidays/special occasions only Exam Narrative Exam Narrative: GENERAL: Well-developed patient, in mild distress. HEAD: Atraumatic. Normocephalic. EYES: Pupils equal round and reactive. Extraocular motions intact. No scleral icterus. No injection or drainage. ENT: Nose without bleeding, purulent drainage. Throat without erythema, tonsillar hypertrophy or exudate. Airway patent. NECK: Trachea midline. Non tender CARDIOVASCULAR: Regular rate and rhythm without murmurs, gallops, or rubs. RESPIRATORY: Clear to auscultation. Breath sounds equal bilaterally. No wheezes, rales, or rhonchi. GASTROINTESTINAL: Abdomen soft, non-tender, nondistended. EXTREMITIES: Bilateral lower extremity to mid upper ankles, 2+ edema, no redness or warmth, no palpable cords. BACK: Nontender without deformity or crepitance. No flank tenderness. NEURO: AOx3. Motor functions grossly nonfocal SKIN: No rash or erythema of visible areas Initial Vital Signs Initial Vital Signs: Vital Signs Pulse Rate 69 08/24/24 17:08 Pulse Oximetry 98 08/24/24 17:08 Course Orders Ordered: ED Orders 08/24/24 17:11 Complete Blood Count AUTO DIFF Stat Comprehensive Metabolic Panel Stat Lipase Stat NT-proBNP (BNP-Adult 18+) Stat Troponin & CK Cardiac Panel Stat 08/24/24 17:15 XR chest 1V Stat 08/24/24 17:16 EKG-12 Lead Stat Discontinued Medications Acetaminophen (Acetaminophen 325 Mg Tablet) 650 mg PO NOW ONE Stop: 08/24/24 19:56 Last Admin: 08/24/24 19:58 Dose: 650 mg Documented By: JAMES Furosemide (Furosemide 40 Mg/4 Ml Vial) 20 mg IV NOW ONE Stop: 08/24/24 19:41 Last Admin: 08/24/24 19:45 Dose: 20 mg Documented By: JAMES Vital Signs Vital signs: Vital Signs - 8 hr 08/24/24 18:00 08/24/24 18:00 08/24/24 18:16 Pulse Rate 72 Respiratory Rate 19 Blood Pressure 153/80 H 151/72 H Pulse Oximetry 98 08/24/24 18:16 08/24/24 18:30 08/24/24 18:30 Pulse Rate 89 75 Respiratory Rate 27 H 28 H Blood Pressure 159/103 H Pulse Oximetry 97 97 08/24/24 18:45 08/24/24 18:45 08/24/24 18:59 Pulse Rate 77 71 Respiratory Rate 24 21 Blood Pressure 162/91 H Pulse Oximetry 97 96 08/24/24 19:00 08/24/24 19:16 08/24/24 19:16 Pulse Rate 75 Respiratory Rate 24 Blood Pressure 195/88 H 176/77 H Pulse Oximetry 96 08/24/24 19:30 08/24/24 19:30 08/24/24 19:45 Pulse Rate 74 72 Respiratory Rate 18 24 Blood Pressure 161/80 H Pulse Oximetry 96 97 08/24/24 19:45 Pulse Rate Respiratory Rate Blood Pressure 172/97 H Pulse Oximetry Medical Decision Making Lab Data Lab results reviewed: Yes I reviewed the patient's lab results. Lab results narrative: White blood cell count 5600, hemoglobin 11.2, platelets [id number]. Basic metabolic panel normal. Liver functions normal. BNP 157 normal. Troponin negative/unmeasurable. 08/24/24 17:11 08/24/24 17:11 Labs: Lab Results 08/24/24 Range/Units 17:11 WBC 5.6 (4.5-11.0) X10^3/uL RBC 3.38 L (4.5-5.9) X10^6/uL Hgb 11.2 L (13.5-17.5) g/dL Hct 33.6 L (41-53) % MCV 99.5 (80-100) fL MCH 33.0 (26-34) PG MCHC 33.2 (30-36) % RDW 13.3 (11.6-14.8) % Plt Count 187 (150-400) X10^3/uL Neut % (Auto) 53.8 (50-75) % Lymph % (Auto) 32.9 (25-40) % [place] % (Auto) 11.1 (3-14) % Eos % (Auto) 1.7 L (2-4) % Baso % (Auto) 0.5 (0-2) % Neut # (Auto) 3000 (3340-6990) /uL Lymph # (Auto) 1800 (5914-9992) /uL Swift # (Auto) 600 (0-900) /uL Eos # (Auto) 100 (0-450) /uL Baso # (Auto) 0 (0-100) /uL Sodium 136 L (137-145) mmol/L Potassium 4.6 (3.4-5.1) mmol/L Chloride 104 (98-107) mmol/L Carbon Dioxide 30 (22-32) mmol/L BUN 33 H (9-20) mg/dL Creatinine 1.06 (0.66-1.25) mg/dL Estimated GFR > 60 (>60) mL/min BUN/Creatinine Ratio 31.1 H (6-22) Glucose 103 (80-110) mg/dL Calcium 9.0 (8.4-10.2) mg/dL Total Bilirubin 0.6 (0.2-1.3) mg/dL AST 26 (17-59) IU/L ALT 7 (<50) IU/L Alkaline Phosphatase 60 (38-126) U/L Total Creatine Kinase 102 (55-170) U/L Troponin I < 0.012 (0.01-0.034) ng/mL NT-Pro-B Natriuret Pep 157 (<450) pg/mL Total Protein 6.6 (6.3-8.2) g/dL Albumin 3.8 (3.5-5.0) g/dL Globulin 2.8 (1.7-4.1) g/dL Albumin/Globulin Ratio 1.4 (1.0-2.8) Lipase 83 (23-300) U/L Urine Dip Bedside Urine Glucose Negative Bedside Urine Bilirubin - Negative Bedside Urine Ketone - Negative Urine Specific [place] 1.010 Bedside Urine Occult Blood - Negative Bedside Urine pH 7.0 Bedside Urine Protein - Negative Bedside Urine Urobilinogen - Negative Bedside Urine Nitrite - Negative Bedside Urine Leukocytes - Negative Esterase Point of care testing: Urine Dip Bedside Urine Glucose Negative Bedside Urine Bilirubin - Negative Bedside Urine Ketone - Negative Urine Specific [place] 1.010 Bedside Urine Occult Blood - Negative Bedside Urine pH 7.0 Bedside Urine Protein - Negative Bedside Urine Urobilinogen - Negative Bedside Urine Nitrite - Negative Bedside Urine Leukocytes - Negative Esterase Imaging Data Chest x-ray: Radiologist's Impression: [place] [address] XRay Report Signed Patient: Torsten Albrecht MR#: [id number] : 1940 Acct:[id number] Age/Sex: 83 / M Date of Service: 08/24/24 Loc: ED Accession Number: [id number] Procedure: XR chest 1V Ordering Provider: Leo Zamarripa D.O. PROCEDURE: XR CHEST 1V INDICATIONS: Eval for pulmonary edema TECHNIQUE: One view of the chest was acquired. COMPARISON: [facility], CR, XR CHEST 1V, 02/10/2023, 11:04. [facility], CR, XR CHEST 1V, 01/01/2023, 11:17. FINDINGS: Surgical changes and devices: None. Lungs and pleura: Lungs are clear. No pleural effusions or pneumothorax. Mediastinum: Mediastinal contours appear normal. Heart size is normal. Bones and chest wall: No suspicious bony lesions. Overlying soft tissues appear unremarkable. IMPRESSION: No findings concerning for pulmonary edema. No acute cardiopulmonary abnormality is seen. Dictated by: Emiliano Eastman M.D. on 08/24/2024 at 17:57 Approved by: Emiliano Eastman M.D. on 08/24/2024 at 17:58 ECG Data Attestation: I personally reviewed and interpreted this ECG as follows: Interpretation: Normal sinus rhythm with rate of 67, no obvious ST segment elevation or depression changes. MD 168, QRS 86, QTC 405. MDM Narrative Medical decision making narrative: 83-year-old male with bilateral lower extremity peripheral edema, afebrile, no known history of heart/liver/kidney failure, no recent change in medications. Afebrile, sirs screen negative. Bilateral lower extremity edema to above ankles bilaterally. No cords. No redness or warmth. Labs pending. EKG unremarkable, labs showed normal kidney function, normal liver functions, BNP not elevated. Doubt bilateral DVTs. Trial of diuresis. IV Lasix 20 mg dose now, prescription for daily dose with potassium supplementation sent to his pharmacy to take for the next 1 week. Advised follow up next week with his PCP for review of symptoms and lab draw to check electrolytes/renal function. Discharged home after IV Lasix dose. Discharge Plan Departure Patient Disposition: Home Clinical Impression: Bilateral edema of lower extremity Activity Restrictions/Additional Instructions: Lower extremity swelling for the last few days, no history of heart failure or liver failure or kidney failure. Screening labs unremarkable. IV Lasix dose given. Consider taking oral Lasix daily for the next few days. Follow up with your regular doctor next week for reassessment of symptoms and recheck your labs on the new Lasix medicine. Potassium supplement to take by mouth also prescribed daily while taking Lasix, to maintain your potassium levels. Return earlier to this/nearest emergency department for any change worsening symptoms or any concerns prior Prescriptions: New furosemide [Lasix] 20 mg tablet 20 mg PO DAILY 7 Days Qty: 7 0RF potassium chloride 10 mEq capsule, extended release 10 meq PO DAILY Qty: 7 0RF No Action hydrocodone-acetaminophen [[place]] 5-325 mg tablet 1 tab PO Q4-6H PRN (Reason: pain) Qty: 7 0RF carbidopa-levodopa 48.75-195 mg Capsule, Extended Release 2 cap PO TID Patient Comments: Patient takes these doses at 0700, 1300 and 1800 Rx Instructions: divide evenly over waking hours latanoprost 0.005 % Drops 1 drp OPHTHALMIC (EYE) QPM Patient Comments: Patient normally takes this medication at 2000 atorvastatin 20 mg Tablet 20 mg PO QPM Rx Instructions: Patient normally takes this medication at 2000. alendronate 70 mg Tablet 70 mg PO QWEEK Patient Comments: Patient normally takes this medication on Mondays at 7am melatonin 3 mg Tablet 3 mg PO BEDTIME Patient Comments: Patient normally takes this medication at 2000 clopidogrel 75 mg Tablet 75 mg PO DAILY Patient Comments: Patient normally takes this medication at 1700. pantoprazole 20 mg Tablet,Delayed Release (Dr/Ec) 20 mg PO DAILY Patient Comments: Patient normally takes this medication at 0845. tamsulosin 0.4 mg Capsule 0.4 mg PO BEDTIME Patient Comments: Patient normally takes this medication at 2000. brimonidine 0.2 % Drops 1 drp EYE-BOTH BID Patient Comments: Patient normally takes this medication at 0800 & 1999. mecobalamin (vitamin B12) 1,000 mcg Tablet,Disintegrating 1,000 mcg SUBLINGUAL DAILY Patient Comments: Patient normally takes this medication at 0800 Rx Instructions: place tablet under tongue and allow to dissolve for at least30 secs before swallowing pimavanserin 34 mg Capsule 34 mg PO DAILY Patient Comments: Patient normally takes this medication at 1030. duloxetine 60 mg Capsule, Delayed Rel Sprinkle 60 mg PO DAILY Patient Comments: Patient normally takes this medication at 1700. carbidopa-levodopa 48.75-195 mg Capsule, Extended Release 1 cap PO BID Patient Comments: Patient takes this dose at 1000, 2000 Rx Instructions: divide evenly over waking hours metoprolol succinate 25 mg Tablet Extended Release 24 Hr 25 mg PO BID Patient Comments: Patient normally takes this medication at 0800 & 1700 quetiapine 25 mg Tablet 25 mg PO BID Patient Comments: Patient normally takes this medication at 0800 & 2000 timolol maleate 0.5 % Drops 1 drp OPHTHALMIC (EYE) BID Patient Comments: Patient has this administered at 0700 and 1999 gabapentin 600 mg Tablet 600 mg PO TID Patient Comments: Patient normally takes this medication at Rx Instructions: Patient takes this medication at 0700, 1330 and 1999 pramipexole 1.5 mg Tablet 1.5 mg PO TID Rx Instructions: Patient takes this medication 0700, 1330 and 2000. Referrals: Lila Pang ARNP [Primary Care Provider] - Stand Alone Forms: Patient Portal/API/Survey
[2024-08-24] MEDS: FUROSEMIDE 40 MG/4 ML VIAL 20 MG IV (19:45)
[2024-08-24] MEDS: ACETAMINOPHEN 325 MG TABLET 650 MG PO (19:58)
== END 2024-08-24 20:38 | disposition home or self-care (01) ==
PROVIDERS: Emergency Medicine; Emergency Provider Emergency Medicine; PCP Nurse Practitioner Gerontology
DX: R60.0 Localized edema (principal)
CPT/HCPCS: 71045; 80053; 81003; 82550; 83690; 83880; 84484; 85025; 93005; 93010; 96374; 99284; J1940

== ENCOUNTER 2025-01-13 21:21 | Emergency (ER) | payer OTHER, SELFPAY ==
[2025-01-13 21:28] VITALS: BP 128/68; PULSE 75; RESP 16; TEMP 36.6; O2SAT 97; BMI 22.8
[2025-01-13 22:34] LABS: Bacteria Urine None Seen; Culture Indicated Urine Cult Not Indicated; RBC Urine None Seen (0-5/HPF); Squamous Epithelial Cell Urine None Seen (0-5/HPF); Urine Volume 10mL (spun); WBC Urine 0-1/HPF (0-5/HPF)
--- NOTE | 2025-01-14 00:16 | ED.FALL ---
HPI - Fall General Chief Complaint: Urogenital-Male Stated Complaint: groin pain Time Seen by Provider: 01/13/25 22:55 Source: patient and EMS Mode of arrival: EMS History of Present Illness HPI Narrative: 84-year-old gentleman history of Parkinson's disease, htn, hld lives at assisted care facility [facility] fell twice in the past 3 weeks initially seen at another outlying ER but now continues to have right hip pain radiating to the groin region. For the last for 5 nights he has had elevated blood pressure secondary to his pain and again he reinforces right hip pain and now today it radiated to the groin and he got concerned and came in to be evaluated via EMS. He is still able to walk but in significant pain. Other than what is stated 14 point review of system is negative. Related Data Home Medications Medication Instructions Recorded Confirmed alendronate 70 mg tablet 70 mg PO QWEEK 02/10/23 01/13/25 atorvastatin 20 mg tablet 20 mg PO QPM 02/10/23 01/13/25 brimonidine 0.2 % eye drops 1 drp EYE-BOTH BID 02/10/23 01/13/25 carbidopa ER 48.75 mg-levodopa 195 1 cap PO BID 02/10/23 01/13/25 mg capsule,extended release carbidopa ER 48.75 mg-levodopa 195 2 cap PO TID 02/10/23 01/13/25 mg capsule,extended release clopidogrel 75 mg tablet 75 mg PO DAILY 02/10/23 01/13/25 duloxetine 60 mg capsule,delayed 60 mg PO DAILY 02/10/23 01/13/25 release sprinkle gabapentin 600 mg tablet 600 mg PO TID 02/10/23 01/13/25 latanoprost 0.005 % eye drops 1 drp ophthalmic (eye) QPM 02/10/23 01/13/25 mecobalamin (vitamin B12) 1,000 1,000 mcg sublingual DAILY 02/10/23 01/13/25 mcg disintegrating tablet,sublingual melatonin 3 mg tablet 3 mg PO BEDTIME 02/10/23 01/13/25 metoprolol succinate 25 mg 25 mg PO BID 02/10/23 01/13/25 tablet,extended release 24 hr pantoprazole 20 mg tablet,delayed 20 mg PO DAILY 02/10/23 01/13/25 release pimavanserin 34 mg capsule 34 mg PO DAILY 02/10/23 01/13/25 pramipexole 1.5 mg tablet 1.5 mg PO TID 02/10/23 01/13/25 quetiapine 25 mg tablet 25 mg PO BID 02/10/23 01/13/25 tamsulosin 0.4 mg capsule 0.4 mg PO BEDTIME 02/10/23 01/13/25 timolol maleate 0.5 % eye drops 1 drp ophthalmic (eye) BID 02/10/23 01/13/25 Previous Rx's Medication Instructions Recorded hydrocodone 5 mg-acetaminophen 325 1 tab PO Q4-6H PRN pain #7 tabs 01/01/ mg tablet (Pacolet) potassium chloride 10 mEq 10 meq PO DAILY #7 caps 08/24/24 capsule,extended release tramadol 50 mg tablet 50 mg PO Q6H PRN pain #20 tabs 01/14/25 Allergies Allergy/AdvReac Type Severity Reaction Status Date / Time azithromycin Allergy Verified 06/20/23 13:32 haloperidol [From Haldol] Allergy Verified 06/20/23 13:32 Review of Systems Review of Systems ROS Unobtainable: All systems reviewed & are unremarkable except as noted in HPI and below Patient History Medical History CVA (cerebral vascular accident) Parkinsons disease Social History lives independently: Yes Smoking Status: Former smoker Smoking Status: Former smoker alcohol intake frequency: holidays/special occasions only Exam Narrative Exam Narrative: GENERAL: [84] year old patient appears stated age. Well-developed patient, in mild distress. HEAD: Atraumatic. Normocephalic. EYES: Pupils equal round and reactive. Extraocular motions intact. No scleral icterus. No injection or drainage. ENT: Nose without bleeding, purulent drainage. Throat without erythema, tonsillar hypertrophy or exudate. Airway patent. NECK: Trachea midline. Non tender CARDIOVASCULAR: Regular rate and rhythm without murmurs, gallops, or rubs. RESPIRATORY: Clear to auscultation. Breath sounds equal bilaterally. No wheezes, rales, or rhonchi. GASTROINTESTINAL: Abdomen soft, non-tender, nondistended. EXTREMITIES: R hip TTP but no obvious deformity, motor/sensory intact +2DP +2PT cap refill <2secs BACK: Nontender without deformity or crepitance. No flank tenderness. NEURO: AOx3. SKIN: No rash or erythema of visible areas Initial Vital Signs Initial Vital Signs: Vital Signs Temperature 97.8 F 01/13/25 21:28 Pulse Rate 75 01/13/25 21:28 Respiratory Rate 16 01/13/25 21:28 Blood Pressure 128/68 01/13/25 21:28 Pulse Oximetry 97 01/13/25 21:28 Oxygen Delivery Method Room Air 01/13/25 21:28 Course Orders Ordered: ED Orders 01/13/25 22:15 Urine Culture Stat Urine Microscopic Stat 01/14/25 00:15 CT abdomen pelvis wo con Stat Discontinued Medications Hydrocodone Bitart/Acetaminophen (Hydrocodone/Acet 5/325 Tablet) 1 tab PO NOW ONE Stop: 01/14/25 00:33 Last Admin: 01/14/25 00:50 Dose: Not Given Documented By: AB Oxycodone HCl (Oxycodone Ir 5 Mg Tablet) 5 mg PO NOW ONE Stop: 01/14/25 00:48 Last Admin: 01/14/25 00:58 Dose: 5 mg Documented By: AI Vital Signs Vital signs: Vital Signs - 8 hr 01/13/25 21:28 01/14/25 01:05 01/14/25 01:07 Temperature 97.8 F Pulse Rate 75 89 86 Respiratory Rate 16 Blood Pressure 128/68 Pulse Oximetry 97 97 98 Oxygen Delivery Method Room Air 01/14/25 01:07 Temperature Pulse Rate Respiratory Rate 16 Blood Pressure 192/93 H Pulse Oximetry Oxygen Delivery Method MDM - Fall Lab Data Labs: Lab Results 01/13/25 Range/Units 22:15 Urine RBC None seen (0-5/HPF) Urine WBC 0-1/hpf (0-5/HPF) Ur Squamous Epith Cells None seen (0-5/HPF) Urine Bacteria None seen (None) Ur Culture Indicated? Cult not indicated Vol Urine Centrifuged 10ml (spun) Urine Dip Bedside Urine Glucose Negative Bedside Urine Bilirubin - Negative Bedside Urine Ketone +/- 5 Urine Specific [place] 1.015 Bedside Urine Occult Blood - Negative Bedside Urine pH 6.0 Bedside Urine Protein - Negative Bedside Urine Urobilinogen +/- 1mg Bedside Urine Nitrite - Negative Bedside Urine Leukocytes - Negative Esterase Imaging Data CT scan - abdomen/pelvis: Radiologist's Impression: [address] [address] [address] Scan Report Signed Patient: Torsten Albrecht MR#: [id number] : 1940 Acct:[id number] Age/Sex: 84 / M Date of Service: 01/14/25 Loc: ED Accession Number: [id number] Procedure: CT abdomen pelvis wo con Ordering Provider: Chandrakant Alfredo D.O. PROCEDURE: CT ABDOMEN PELVIS WO CON INDICATIONS: fall/ R hip pain radiating to groin /abd pain TECHNIQUE: Axial sections were acquired from the lung bases to the pubic symphysis. Coronal and sagittal reformats were performed. For radiation dose reduction, the following was used: automated exposure control, adjustment of mA and/or kV according to patient size. COMPARISON: [facility], CT, CT ABDOMEN PELVIS WITH CONTRAST, 09/17/2023, 12:46. FINDINGS: Image quality: Diagnostic. Lower Chest: Small hiatal hernia. Prior right 12th rib fracture. URINARY: Right Kidney: No stones or hydronephrosis. Right Ureter: No hydroureter. Left Kidney: No stones or hydronephrosis. Left Ureter: No hydroureter. Bladder: Normal wall thickness. No stones. ABDOMEN: Liver: No contour-deforming solid mass. Gallbladder: No radiopaque gallstones or wall thickening. Biliary ducts: No biliary dilation. Pancreas: Not well evaluated on this noncontrast exam. No peripancreatic fluid collection. Spleen: Size is within normal limits. Adrenal Glands: No adrenal nodules. Stomach and Bowel: Prominent stool in the colon. Normal appendix. No small bowel obstruction. Stomach is decompressed. Peritoneum: No abnormal intraperitoneal fluid. No free air. Ventral Wall: No hernia. Abdominal Nodes: No enlarged retroperitoneal or mesenteric lymph nodes. Vessels: Aorta and inferior vena cava are normal in size. PELVIS: Beam hardening artifact. Pelvic Organs: Prominent prostate gland. Pelvic Nodes: Unremarkable. Miscellaneous: No inguinal hernias are seen. Stranding in the fat lateral to the right hip, (2). Suspect contusion. Bones: L4-L5 pedicle screw fixation with intervertebral body spacer. Left lateral fixation at L2-L3. Multilevel DDD. IMPRESSION: 1. Possible contusion lateral to the right hip. No fracture. 2. No kidney stones. Dictated by: Theo Chua M.D. on 01/14/2025 at 1:45 Approved by: Theo Chua M.D. on 01/14/2025 at 1:53 MDM Narrative Medical decision making narrative: Vital signs nurse triage note medication list all previous ER visits in all imaging modalities reviewed. Patient given oxycodone here x1 tablet. Differential diagnosis include fracture dislocation contusion arthritis UTI. DC home to to take Tramadoll as needed for pain control. Follow up PCP in 1-2 weeks if no improvement in symptoms. Discharge Plan Departure Patient Disposition: Home Clinical Impression: Contusion of hip and thigh Qualifiers: Encounter type: initial encounter Laterality: right Qualified Code(s): S70.01XA - Contusion of right hip, initial encounter Instructions: DI for Contusion Activity Restrictions/Additional Instructions: Return with new or worsening symptoms. Take your medicines as directed. Follow up with PCP in 1-2 weeks if no improvement in symptoms. Prescriptions: New tramadol 50 mg tablet 50 mg PO Q6H PRN (Reason: pain) Qty: 20 0RF No Action hydrocodone-acetaminophen [Paco[place]] 5-325 mg tablet 1 tab PO Q4-6H PRN (Reason: pain) Qty: 7 0RF carbidopa-levodopa 48.75-195 mg Capsule, Extended Release 2 cap PO TID Patient Comments: Patient takes these doses at 0700, 1300 and 1800 Rx Instructions: divide evenly over waking hours latanoprost 0.005 % Drops 1 drp OPHTHALMIC (EYE) QPM Patient Comments: Patient normally takes this medication at 1999 atorvastatin 20 mg Tablet 20 mg PO QPM Rx Instructions: Patient normally takes this medication at 1999. alendronate 70 mg Tablet 70 mg PO QWEEK Patient Comments: Patient normally takes this medication on Mondays at 7am melatonin 3 mg Tablet 3 mg PO BEDTIME Patient Comments: Patient normally takes this medication at 1999 clopidogrel 75 mg Tablet 75 mg PO DAILY Patient Comments: Patient normally takes this medication at 1700. pantoprazole 20 mg Tablet,Delayed Release (Dr/Ec) 20 mg PO DAILY Patient Comments: Patient normally takes this medication at 0845. tamsulosin 0.4 mg Capsule 0.4 mg PO BEDTIME Patient Comments: Patient normally takes this medication at 1999. brimonidine 0.2 % Drops 1 drp EYE-BOTH BID Patient Comments: Patient normally takes this medication at 0800 & 2000. mecobalamin (vitamin B12) 1,000 mcg Tablet,Disintegrating 1,000 mcg SUBLINGUAL DAILY Patient Comments: Patient normally takes this medication at 0800 Rx Instructions: place tablet under tongue and allow to dissolve for at least30 secs before swallowing pimavanserin 34 mg Capsule 34 mg PO DAILY Patient Comments: Patient normally takes this medication at 1030. duloxetine 60 mg Capsule, Delayed Rel Sprinkle 60 mg PO DAILY Patient Comments: Patient normally takes this medication at 1700. carbidopa-levodopa 48.75-195 mg Capsule, Extended Release 1 cap PO BID Patient Comments: Patient takes this dose at 1000, 2000 Rx Instructions: divide evenly over waking hours metoprolol succinate 25 mg Tablet Extended Release 24 Hr 25 mg PO BID Patient Comments: Patient normally takes this medication at 0800 & 1700 quetiapine 25 mg Tablet 25 mg PO BID Patient Comments: Patient normally takes this medication at 0800 & 2000 timolol maleate 0.5 % Drops 1 drp OPHTHALMIC (EYE) BID Patient Comments: Patient has this administered at 0700 and 2000 gabapentin 600 mg Tablet 600 mg PO TID Patient Comments: Patient normally takes this medication at Rx Instructions: Patient takes this medication at 0700, 1330 and 2000 pramipexole 1.5 mg Tablet 1.5 mg PO TID Rx Instructions: Patient takes this medication 0700, 1330 and 2000. potassium chloride 10 mEq capsule, extended release 10 meq PO DAILY Qty: 7 0RF Referrals: Lila Pang ARNP [Primary Care Provider] - Stand Alone Forms: Patient Portal/API/Survey
[2025-01-14] MEDS: OXYCODONE IR 5 MG TABLET PO (00:58)
[2025-01-14 01:05] VITALS: PULSE 89; O2SAT 97
[2025-01-14 01:07] VITALS: BP 192/93; PULSE 86; RESP 16; O2SAT 98
[2025-01-14 01:30] VITALS: BP 175/84
[2025-01-14] MEDS: TRAMADOL 50 MG TABLET PO (02:36)
[2025-01-14 06:27] VITALS: BP 174/89; PULSE 81; RESP 15; O2SAT 97
== END 2025-01-14 06:29 | disposition home or self-care (01) ==
PROVIDERS: Emergency Provider Family Medicine; PCP Nurse Practitioner Gerontology
DX: S70.01XA Contusion of right hip, initial encounter (principal); G20.A1 Parkinson's disease without dyskinesia, without mention of fluctuations; I10 Essential (primary) hypertension; W19.XXXA Unspecified fall, initial encounter
CPT/HCPCS: 74176; 81003; 81015; 87086; 99283

== ENCOUNTER 2025-08-14 21:00 | Emergency (ER) | payer OTHER, SELFPAY ==
[2025-08-14] VITALS (7 sets, daily range): BP systolic 139–177; BP diastolic 65–84; PULSE 65–77; RESP 13–18; TEMP 36.8; O2SAT 96–97; BMI 23.2
--- NOTE | 2025-08-14 21:11 | DI.RAD.S_ITS ---
PROCEDURE: XR CHEST 1V INDICATIONS: Chest Pain TECHNIQUE: One view of the chest was acquired. COMPARISON: [facility], CR, XR CHEST 1V, 08/24/2024, 17:23. FINDINGS: Surgical changes and devices: None. Lungs and pleura: Lungs are clear. No pleural effusions or pneumothorax. Mediastinum: Mediastinal contours appear normal. Heart size is normal. Bones and chest wall: No suspicious bony lesions. Overlying soft tissues appear unremarkable. Multiple healed right rib fracture deformities as before. IMPRESSION: Stable radiographic evaluation of the chest without acute cardiopulmonary abnormalities or focal consolidation. Dictated by: Will Zamora M.D. on 08/14/2025 at 22:00 Approved by: Will Zamora M.D. on 08/14/2025 at 22:00
--- NOTE | 2025-08-14 21:11 | EKG_ITS ---
[address] [address] Test Date: 2025-08-14 Pat Name: Torsten Albrecht Department: Room: Gender: Male Pump Installer: VICTOR MANUEL : 1940 Requested By: Order Number: [id number] Reading MD: Rudolph Hughes Measurements Intervals [place] Rate: 69 P: 59 NE: 174 QRS: -42 QRSD: 110 T: 44 QT: 386 QTc: 413 Interpretive Statements Normal sinus rhythm Left axis deviation Electronically Signed On 08-19-2025 12:28:26 PST by Rudolph Hughes
[2025-08-14 21:19] LABS: Add Manual Diff / Slide Review NO; Hematocrit 31.3 % (41-53); Hemoglobin 10.5 g/dL (13.5-17.5); Lymphocytes Absolute Auto 1600 /uL (1100-4500); Mean Corpuscular HGB Conc 33.4 % (30-36); Mean Corpuscular Hemoglobin 31.6 PG (26-34); Mean Corpuscular Volume 94.4 fL (80-100); Platelet Count 160 X10^3/uL (150-400)
[2025-08-14 21:25] LABS: INR 1.0 (0.9-1.3); Prothrombin Time 11.1 SECONDS (9.4-12.5)
[2025-08-14 21:28] LABS: PTT Partial Thromboplastin Tim 29 SECONDS (25.1-36.5)
[2025-08-14 21:31] LABS: Alanine Aminotransferase 6 IU/L (<50); Albumin 3.8 g/dL (3.5-5.0); Albumin Globulin Ratio 1.5 (1.0-2.8); Alkaline Phosphatase 78 U/L (38-126); Blood Urea Nitrogen 32 mg/dL (9-20); Calcium 8.9 mg/dL (8.4-10.2); Carbon Dioxide 29 mmol/L (22-32); Chloride 107 mmol/L (98-107); Creatine Kinase 154 U/L (55-170); Estimated Glomerular Filt Rate > 60 mL/min (>60); Globulin 2.6 g/dL (1.7-4.1); Glucose 99 mg/dL (70-99); HEMOLYSIS < 15 (0-50); Lipase 36 U/L (23-300); Magnesium 2.3 mg/dL (1.6-2.3); Potassium 3.9 mmol/L (3.4-5.1); Sodium 141 mmol/L (137-145); Total Protein 6.4 g/dL (6.3-8.2)
[2025-08-14 21:42] LABS: NT-proBNP (BNP-Adult 18+) 179 pg/mL (<450); Troponin I < 0.012 ng/mL (0.01-0.034)
--- NOTE | 2025-08-14 23:15 | EKG_ITS ---
[facility] [address] [place] [address] Test Date: 2025-08-14 Pat Name: Torsten Albrecht Department: [facility] Room: Gender: Male Lobby Porter: ARLENE : 1940 Requested By: Order Number: [id number] Reading MD: Rudolph Hughes Measurements Intervals [place] Rate: 61 P: [place]: 186 QRS: 220 QRSD: 106 T: 153 QT: 408 QTc: 410 Interpretive Statements Normal sinus rhythm Right superior axis deviation Incomplete right bundle branch block Nonspecific ST and T wave abnormality Electronically Signed On 08-19-2025 12:28:42 PST by Rudolph Hughes
[2025-08-14 23:50] LABS: Troponin I < 0.012 ng/mL (0.01-0.034)
[2025-08-15] VITALS: BP 159/71; PULSE 60; RESP 12; O2SAT 96
[2025-08-15 00:30] VITALS: PULSE 73; RESP 20; O2SAT 95
--- NOTE | 2025-08-15 00:55 | ED.CHESTPAIN ---
HPI - Chest Pain General Chief Complaint: Chest Pain Stated Complaint: resolved chest pain Time Seen by Provider: 08/14/25 22:57 Source: patient and EMS Mode of arrival: EMS History of Present Illness HPI narrative: Patient is a 84-year-old male who lives at assisted living history of Parkinson's hyperlipidemia CVA on Plavix, presenting today with chest pain. He reports he was having some chest pain off and on for 20 minutes he is not having anymore chest pain he has been here for a number of hours. He has no prior history of coronary artery disease or arrhythmia. He has ongoing Parkinson's movements which he has been used to in his had Parkinson's for about 18 years. He reports no new changes with symptoms or side effects in that regard. He has no shortness of breath abdominal pain nausea or vomiting. He is complaining of leg cramps at the moment. Related Data Home Medications ?Medication ?Instructions ?Recorded ?Confirmed alendronate 70 mg tablet 70 mg PO QWEEK 02/10/23 01/13/25 atorvastatin 20 mg tablet 20 mg PO QPM 02/10/23 01/13/25 brimonidine 0.2 % eye drops 1 drp EYE-BOTH BID 02/10/23 01/13/25 carbidopa ER 48.75 mg-levodopa 195 1 cap PO BID 02/10/23 01/13/25 mg capsule,extended release carbidopa ER 48.75 mg-levodopa 195 2 cap PO TID 02/10/23 01/13/25 mg capsule,extended release clopidogrel 75 mg tablet 75 mg PO DAILY 02/10/23 01/13/25 duloxetine 60 mg capsule,delayed 60 mg PO DAILY 02/10/23 01/13/25 release sprinkle gabapentin 600 mg tablet 600 mg PO TID 02/10/23 01/13/25 latanoprost 0.005 % eye drops 1 drp ophthalmic (eye) QPM 02/10/23 01/13/25 mecobalamin (vitamin B12) 1,000 1,000 mcg sublingual DAILY 02/10/23 01/13/25 mcg disintegrating tablet,sublingual melatonin 3 mg tablet 3 mg PO BEDTIME 02/10/23 01/13/25 metoprolol succinate 25 mg 25 mg PO BID 02/10/23 01/13/25 tablet,extended release 24 hr pantoprazole 20 mg tablet,delayed 20 mg PO DAILY 02/10/23 01/13/25 release pimavanserin 34 mg capsule 34 mg PO DAILY 02/10/23 01/13/25 pramipexole 1.5 mg tablet 1.5 mg PO TID 02/10/23 01/13/25 quetiapine 25 mg tablet 25 mg PO BID 02/10/23 01/13/25 tamsulosin 0.4 mg capsule 0.4 mg PO BEDTIME 02/10/23 01/13/25 timolol maleate 0.5 % eye drops 1 drp ophthalmic (eye) BID 02/10/23 01/13/25 Previous Rx's ?Medication ?Instructions ?Recorded hydrocodone 5 mg-acetaminophen 325 1 tab PO Q4-6H PRN pain #7 tabs 01/01/ mg tablet (Schlater) potassium chloride 10 mEq 10 meq PO DAILY #7 caps 08/24/24 capsule,extended release tramadol 50 mg tablet 50 mg PO Q6H PRN pain #20 tabs 01/14/25 Allergies Allergy/AdvReac Type Severity Reaction Status Date / Time azithromycin Allergy Verified 04/27/25 21:27 haloperidol (From Haldol) Allergy Verified 04/27/25 21:27 Patient History Medical History CVA (cerebral vascular accident) Parkinsons disease Social History lives independently: Yes Smoking Status: Former smoker Smoking Status: Former smoker alcohol intake frequency: holidays/special occasions only Exam Initial Vital Signs Initial Vital Signs: Vital Signs Pulse Rate 77 08/14/25 21:05 Pulse Oximetry 97 08/14/25 21:05 GENERAL: Alert pleasant 84-year-old male and in no acute distress. HEENT: Head atraumatic,EOMI, pupils reactive, face symmetric, moist mucous membranes CARDIOVASCULAR: Regular rate and rhythm without murmurs, rubs or gallops. RESPIRATORY: Breath sounds equal bilaterally, no wheezes rales or rhonchi. ABDOMEN: Soft, nontender. Normoactive bowel sounds all 4 quadrants. No guarding or rebound. EXTREMITIES: Normal range of motion, no clubbing or edema. Neurovascularly intact NEUROLOGICAL: Alert and oriented x4. Parkinson movements SKIN: Warm, dry, no laceration, no petechiae, no rashes or lesions. Course Orders Ordered: ED Orders 08/14/25 21:08 Complete Blood Count AUTO DIFF Stat Comprehensive Metabolic Panel Stat Lipase Stat Magnesium Stat NT-proBNP (BNP-Adult 18+) Stat PTT Partial Thromboplastin Andrew Stat Prothrombin Time INR Stat Troponin & CK Cardiac Panel Stat 08/14/25 21:11 XR chest 1V Stat EKG-12 Lead Stat 08/14/25 23:10 Trop I [Troponin I] Stat 08/14/25 23:11 EKG-12 Lead Stat Discontinued Medications Acetaminophen (Acetaminophen 325 Mg Tablet) 975 mg PO NOW ONE Stop: 08/15/25 01:06 Last Admin: 08/15/25 01:11 Dose: 975 mg Documented By: TRICIA Aspirin (Aspirin 81 Mg Chew Tab) 324 mg PO NOW ONE Stop: 08/14/25 21:12 Last Admin: 08/14/25 22:19 Dose: Not Given Documented By: TRICIA Vital Signs Vital signs: Vital Signs - 8 hr 08/14/25 21:05 08/14/25 21:19 08/14/25 21:30 Temperature 98.2 F Pulse Rate 77 73 73 Respiratory Rate 16 18 Blood Pressure 177/84 H Pulse Oximetry 97 97 96 Oxygen Delivery Method Room Air 08/14/25 21:30 08/14/25 22:00 08/14/25 22:00 Temperature Pulse Rate 65 Respiratory Rate 14 Blood Pressure 153/76 H 143/68 H Pulse Oximetry 96 Oxygen Delivery Method 08/14/25 22:30 08/14/25 22:30 08/14/25 23:00 Temperature Pulse Rate 68 Respiratory Rate 18 Blood Pressure 139/65 146/65 H Pulse Oximetry 96 Oxygen Delivery Method 08/14/25 23:00 08/14/25 23:30 08/14/25 23:30 Temperature Pulse Rate 69 66 Respiratory Rate 18 13 Blood Pressure 166/77 H Pulse Oximetry 96 96 Oxygen Delivery Method 08/15/25 00:00 08/15/25 00:00 08/15/25 00:30 Temperature Pulse Rate 60 73 Respiratory Rate 12 20 Blood Pressure 159/71 H Pulse Oximetry 96 95 Oxygen Delivery Method 08/15/25 01:00 08/15/25 01:30 08/15/25 01:30 Temperature Pulse Rate 74 67 Respiratory Rate 17 Blood Pressure 158/76 H Pulse Oximetry 95 97 Oxygen Delivery Method 08/15/25 02:00 Temperature Pulse Rate 76 Respiratory Rate 34 H Blood Pressure Pulse Oximetry 93 Oxygen Delivery Method MDM - Chest Pain Lab Data 08/14/25 21:08 08/14/25 21:08 Labs: Lab Results 08/14/25 08/14/25 Range/Units 21:08 23:10 WBC 5.4 (4.5-11.0) X10^3/uL RBC 3.31 L (4.5-5.9) X10^6/uL Hgb 10.5 L (13.5-17.5) g/dL Hct 31.3 L (41-53) % MCV 94.4 (80-100) fL MCH 31.6 (26-34) PG MCHC 33.4 (30-36) % RDW 14.2 (11.6-14.8) % Plt Count 160 (150-400) X10^3/uL Neut % (Auto) 59.7 (50-75) % Lymph % (Auto) 28.9 (25-40) % [place] % (Auto) 9.3 (3-14) % Eos % (Auto) 1.7 L (2-4) % Baso % (Auto) 0.4 (0-2) % Neut # (Auto) 3200 (6076-1642) /uL Lymph # (Auto) 1600 (7602-4862) /uL [place] # (Auto) 500 (0-900) /uL Eos # (Auto) 100 (0-450) /uL Baso # (Auto) 0 (0-100) /uL PT 11.1 (9.4-12.5) SECONDS INR 1.0 (0.9-1.3) APTT 29 (25.1-36.5) SECONDS Sodium 141 (137-145) mmol/L Potassium 3.9 (3.4-5.1) mmol/L Chloride 107 (98-107) mmol/L Carbon Dioxide 29 (22-32) mmol/L BUN 32 H (9-20) mg/dL Creatinine 0.94 (0.66-1.25) mg/dL Estimated GFR > 60 (>60) mL/min BUN/Creatinine Ratio 34.0 H (6-22) Glucose 99 (70-99) mg/dL Calcium 8.9 (8.4-10.2) mg/dL Magnesium 2.3 (1.6-2.3) mg/dL Total Bilirubin 0.6 (0.2-1.3) mg/dL AST 24 (17-59) IU/L ALT 6 (<50) IU/L Alkaline Phosphatase 78 (38-126) U/L Total Creatine Kinase 154 (55-170) U/L Troponin I < 0.012 < 0.012 (0.01-0.034) ng/mL NT-Pro-B Natriuret Pep 179 (<450) pg/mL Total Protein 6.4 (6.3-8.2) g/dL Albumin 3.8 (3.5-5.0) g/dL Globulin 2.6 (1.7-4.1) g/dL Albumin/Globulin Ratio 1.5 (1.0-2.8) Lipase 36 (23-300) U/L Imaging Data Chest x-ray: Radiologist's Impression: PROCEDURE: XR CHEST 1V INDICATIONS: Chest Pain TECHNIQUE: One view of the chest was acquired. COMPARISON: [facility], , XR CHEST 1V, 08/24/2024, 17:23. FINDINGS: Surgical changes and devices: None. Lungs and pleura: Lungs are clear. No pleural effusions or pneumothorax. Mediastinum: Mediastinal contours appear normal. Heart size is normal. Bones and chest wall: No suspicious bony lesions. Overlying soft tissues appear unremarkable. Multiple healed right rib fracture deformities as before. IMPRESSION: Stable radiographic evaluation of the chest without acute cardiopulmonary abnormalities or focal consolidation. Dictated by: Will Zamora M.D. on 08/14/2025 at 22:00 ECG Data Attestation: I personally reviewed and interpreted this ECG as follows: Prior ECG tracings: available for review Interpretation: EKGs 1. Sinus rhythm rate 69 NM interval 174 QRS 110 QTC 413 Q-waves noted in aVL and AVR similar to previous EKGs 04/27/[address] changes EKGs 2. Shows a sinus rhythm rate 61 similar to prior EKGs MDM Narrative Medical decision making narrative: [facility] CC: Chest pain Complicating co-morbidities: Parkinson's, CVA, hypertension hyperlipidemia Data collected from: Patient Medical records reviewed: Previous ED records reviewed, CV visit was 04/27/2025 Differential considered: Acute coronary syndrome, arrhythmia angina costochondritis pneumonia pneumothorax pericarditis Exam documented above, pertinent findings include: Alert 84-year-old male with parkinsonian like movement awake alert oriented moving all extremities breath sounds are clear abdomen is soft Lab Test results independently reviewed as above. Pertinent findings: Troponin negative x2 CBC no abnormalities CMP no abnormality no ITA Bilirubin liver enzymes within normal limits lipase 36 Independently reviewed EKG as above Sinus rhythm with persistent Q-wave in aVL similar to previous EKGs Imaging studies independently reviewed: Chest x-ray no acute cardiopulmonary process Consultations none Treatments: Aspirin and Tylenol Re-evaluations: [ ] Discussion: Patient 84-year-old male presenting today with chest pain ongoing for 20 minutes. Reports that he no longer has chest pain. Workup in the emergency department is overall reassuring EKGs appear similar 2- troponins chest x-ray is negative. 0115 attempted to call son for pickup but there was no answer. BLS arrangements made Discharge Plan Departure Patient Disposition: Home Clinical Impression: Atypical chest pain Instructions: DI for Atypical Chest Pain Activity Restrictions/Additional Instructions: *You have been diagnosed with atypical chest pain *What to do: At this time please follow-up with your doctors you may require further testing *Continue to take medications as directed *Follow up with your primary care provider in 2-3 days or call [phone] *Return to ER if you should have increasing chest pain shortness of breath or any new, worsening or concerning symptoms Prescriptions: No Action hydrocodone-acetaminophen [Schlater] 5-325 mg tablet 1 tab PO Q4-6H PRN (Reason: pain) Qty: 7 0RF carbidopa-levodopa 48.75-195 mg Capsule, Extended Release 2 cap PO TID Patient Comments: Patient takes these doses at 0700, 1300 and 1800 Rx Instructions: divide evenly over waking hours latanoprost 0.005 % Drops 1 drp OPHTHALMIC (EYE) QPM Patient Comments: Patient normally takes this medication at 1999 atorvastatin 20 mg Tablet 20 mg PO QPM Rx Instructions: Patient normally takes this medication at 1999. alendronate 70 mg Tablet 70 mg PO QWEEK Patient Comments: Patient normally takes this medication on Mondays at 7am melatonin 3 mg Tablet 3 mg PO BEDTIME Patient Comments: Patient normally takes this medication at 1999 clopidogrel 75 mg Tablet 75 mg PO DAILY Patient Comments: Patient normally takes this medication at 1700. pantoprazole 20 mg Tablet,Delayed Release (Dr/Ec) 20 mg PO DAILY Patient Comments: Patient normally takes this medication at 0845. tamsulosin 0.4 mg Capsule 0.4 mg PO BEDTIME Patient Comments: Patient normally takes this medication at 2000. brimonidine 0.2 % Drops 1 drp EYE-BOTH BID Patient Comments: Patient normally takes this medication at 0800 & 2000. mecobalamin (vitamin B12) 1,000 mcg Tablet,Disintegrating 1,000 mcg SUBLINGUAL DAILY Patient Comments: Patient normally takes this medication at 0800 Rx Instructions: place tablet under tongue and allow to dissolve for at least30 secs before swallowing pimavanserin 34 mg Capsule 34 mg PO DAILY Patient Comments: Patient normally takes this medication at 1030. duloxetine 60 mg Capsule, Delayed Rel Sprinkle 60 mg PO DAILY Patient Comments: Patient normally takes this medication at 1700. carbidopa-levodopa 48.75-195 mg Capsule, Extended Release 1 cap PO BID Patient Comments: Patient takes this dose at 1000, 2000 Rx Instructions: divide evenly over waking hours metoprolol succinate 25 mg Tablet Extended Release 24 Hr 25 mg PO BID Patient Comments: Patient normally takes this medication at 0800 & 1700 quetiapine 25 mg Tablet 25 mg PO BID Patient Comments: Patient normally takes this medication at 0800 & 2000 timolol maleate 0.5 % Drops 1 drp OPHTHALMIC (EYE) BID Patient Comments: Patient has this administered at 0700 and 2000 gabapentin 600 mg Tablet 600 mg PO TID Patient Comments: Patient normally takes this medication at Rx Instructions: Patient takes this medication at 0700, 1330 and 2000 pramipexole 1.5 mg Tablet 1.5 mg PO TID Rx Instructions: Patient takes this medication 0700, 1330 and 2000. potassium chloride 10 mEq capsule, extended release 10 meq PO DAILY Qty: 7 0RF tramadol 50 mg tablet 50 mg PO Q6H PRN (Reason: pain) Qty: 20 0RF Referrals: Lila Pang ARNP [Primary Care Provider, Medical] Stand Alone Forms: Patient Portal/API
[2025-08-15 01:00] VITALS: PULSE 74; O2SAT 95
[2025-08-15] MEDS: ACETAMINOPHEN 325 MG TABLET 975 MG PO (01:11)
--- NOTE | 2025-08-15 01:21 | W.PC.EDHO ---
Report received from [facility] [place]
[2025-08-15 01:30] VITALS: BP 158/76; PULSE 67; RESP 17; O2SAT 97
--- NOTE | 2025-08-15 01:39 | W.PC.EDHO ---
Attempted to call report to [facility] on [place], no answer or answering machine to leave message on
--- NOTE | 2025-08-15 01:50 | PC.NURSE ---
Attempted to call report to [facility] on [place]. No answer or answering machine to leave message
[2025-08-15 02:00] VITALS: PULSE 76; RESP 34; O2SAT 93
--- NOTE | 2025-08-15 02:00 | PC.NURSE ---
Attempted to call report to [facility] on [place]. No answer or answering machine to leave message
== END 2025-08-15 02:40 | disposition home or self-care (01) ==
PROVIDERS: Emergency Medicine; Emergency Provider Emergency Medicine; PCP Nurse Practitioner Gerontology
DX: R07.89 Other chest pain (principal); I10 Essential (primary) hypertension; G20.A1 Parkinson's disease without dyskinesia, without mention of fluctuations; Z86.73 Personal history of transient ischemic attack (TIA), and cerebral infarction without residual deficits; Z87.891 Personal history of nicotine dependence
CPT/HCPCS: 71045; 80053; 82550; 83690; 83735; 83880; 84484; 85025; 85610; 85730; 93005; 99283; 99284